=== PATIENT | female | born 1990 | race Caucasian/White ===

== ENCOUNTER 2019-09-13 11:58 | Emergency (ER) | payer BC, SELFPAY ==
[2019-09-13 11:59] VITALS: BP 115/76; PULSE 119; RESP 18; TEMP 37.2; O2SAT 95; BMI 32.3
--- NOTE | 2019-09-13 12:19 | ED_ITS ---
HPI - General Adult General: Chief complaint: General Medical Stated complaint: Sick x3 Time Seen by Provider: 09/13/19 12:19 Source: patient Mode of arrival: ambulatory Limitations: no limitations History of Present Illness: HPI narrative: Patient is a 29-year-old female who presents to ED today with complaints of a cough, chest congestion, headache, feeling weak, body aches, chills, fevers of 101; she reports both of her sons have had positive flu tests; she denies abdominal pain, vomiting, diarrhea; she has no urinary symptoms Onset (ago): day(s) (2 days ago) Relieving factors: none Exacerbating factors: none Associated symptoms: Deny chest pain, dyspnea, headache(s), nausea, rash, palpitations, syncope or vomiting Review of Systems Const: Reports: fever (101), chills and body aches; Denies: fatigue Eyes: Denies: change in vision, blurry vision, photophobia, eye discomfort or eye discharge ENMT: Reports: throat pain, painful swallowing, nasal congestion and facial/sinus pain; Denies: enlarged tonsils, swelling of lips/tongue, oral sores/lesions, ear pain, ear discharge, nasal discharge or post nasal drip Card: Denies: chest pain, palpitations, irregular heart rhythm, edema, lightheadedness, syncope or pre-syncope Resp: Reports: productive cough and chest congestion; Denies: shortness of breath, non-productive cough, wheezing, stridor or coughing up blood GI: Denies: abdominal pain, nausea, vomiting or diarrhea : Denies: flank pain, difficulty urinating, painful urination, urinary frequency or urinary urgency Musc: Denies: neck pain or back pain Skin/Breast: Denies: rash Neuro: Denies: headache All/Imm: Denies: facial swelling or seasonal allergies PFSH ED PFSH: Statuses (acute, chronic, etc) shown below reflect problem list status as previously entered and may not be historically accurate Social History (Updated 08/27/19 @ 10:40 by Lucretia Dickson LPN) Smoking and tobacco status: never smoked Alcohol intake: never Female Reproductive History: Date of last menstrual period: 09/12/19 Physical Exam Const: COMMON NORMALS: no apparent distress, average body habitus, oriented x3, alert and well nourished HENMT: COMMON NORMALS: normocephalic, head/scalp atraumatic, hearing grossly normal bilaterally, external ears normal, EAC's normal, TM's normal bilaterally, external nose normal, nasal mucous membranes and turbinates normal, moist oral mucous membranes and oropharynx normal HEAD & SCALP: normocephalic and atraumatic FACE & SINUS: normal facial exam and sinuses nontender NOSE: external nose normal and nasal mucous membranes and turbinates normal EXTERNAL EAR: Yes external ears normal EXTERNAL AUDITORY CANAL: EAC's normal TYMPANIC MEMBRANE: TM's normal bilaterally THROAT: posterior oropharynx normal, tonsils normal and uvula midline Eye: COMMON NORMALS: PERRL, EOMs intact bilaterally and conjunctivae normal CONJUNCTIVA: Yes conjunctivae normal PUPIL: Yes PERRL Neck/C-Spine: COMMON NORMALS: no lymphadenopathy Resp: COMMON NORMALS: normal respiratory effort and clear to auscultation bilaterally AUSCULTATION: clear to auscultation bilaterally Cardio: COMMON NORMALS: regular rate and regular rhythm RATE: regular rate RHYTHM: regular rhythm : COMMON NORMALS: Yes no CVA tenderness BLADDER/KIDNEY EXAM: Yes no CVA tenderness Back/Pelvis: COMMON NORMALS: no CVA tenderness Neuro: COMMON NORMALS: oriented x3 SENSORIUM/ORIENTATION: Yes alert Skin: COMMON NORMALS: no rashes or lesions noted GENERAL SKIN EXAM: no rashes or lesions noted Course Vital Signs: Vital signs: Vital Signs Temperature 98.9 F 09/13/19 11:59 Pulse Rate 119 H 09/13/19 11:59 Respiratory Rate 18 09/13/19 11:59 Blood Pressure 115/76 09/13/19 11:59 Pulse Oximetry 95 09/13/19 11:59 MDM - General Adult Lab Data: Labs: Lab Results 09/13/19 Range/Units 13:05 Influenza Type A A g Positive H (Negative) POC Influenza B Ag Negative (Negative) Imaging Data^: CXR: Radiologist's impression: [address] [place] [address] XRay Report Signed Patient: My Ruiz Unit #: [id number] : [id number] Age/Sex: 29 / F ADM Date: 09/13/19 Loc: ER Room/Bed: Attending Dr: Ordering Provider/Ordering MD: Sophia Mcwilliams Date of Service: 09/13/19 Procedure(s): XR chest 1V portable [id number] Accession Number(s): [id number] Report Number: [id number] WS: [id number] PORTABLE CHEST HISTORY: cough/congestion COMPARISON: None available. Lungs are clear and well expanded. No pleural effusion or pneumothorax. Cardiac size: Normal. Mediastinum/Aorta: Normal mediastinum. No osseous abnormality seen. XR/XR chest 1V portable [id number] IMPRESSION: Unremarkable portable chest. Dictated By: Patrizia Delgado DO Signed By: Patrizia Delgado DO Signed Date/Time: 09/13/191310 DD/ 10 Discharge Plan Discharge Patient Disposition: Home, Self-Care Clinical Impression: Influenza Condition: Stable Prescriptions: New Tamiflu 75 mg capsule 75 mg PO DAILY 5 Days Qty: 5 RF: 0 Tessalon Perles 100 mg capsule 100 mg PO TID PRN (Reason: cough) Qty: 14 RF: 0 Discharge Orders: Discharge Order (Routine); Ordered 09/13/19 Ordered By: Sophia Mcwilliams Referrals: Ibis Cameron DO [Primary Care Provider] - Discharge Diet: Usual diet Discharge Activity: Increase activity as tolerated Coding Level of Care Code ED Senior Account Executive for Chg Fwd Exam Problem Focused
--- NOTE | 2019-09-13 12:34 | XR_ITS ---
WS: [id number] PORTABLE CHEST HISTORY: cough/congestion COMPARISON: None available. Lungs are clear and well expanded. No pleural effusion or pneumothorax. Cardiac size: Normal. Mediastinum/Aorta: Normal mediastinum. No osseous abnormality seen. XR/XR chest 1V portable [id number] IMPRESSION: Unremarkable portable chest.
--- NOTE | 2019-09-13 13:42 | PC.NURSE ---
Pt states shes been sick with flu like symptoms for the past 2 days. Sore throat, congestion,
[2019-09-13 14:08] LABS: Influenza A by IFA Positive (Negative); Influenza B by IFA Negative (Negative)
[2019-09-13 15:29] VITALS: BP 128/76; PULSE 68; RESP 16; O2SAT 98
== END 2019-09-13 15:30 | disposition home or self-care (01) ==
PROVIDERS: Family Medicine; Emergency Provider Physician Assistant; Family Provider Family Medicine; PCP Family Medicine
DX: J11.1 Influenza due to unidentified influenza virus with other respiratory manifestations (principal)
CPT/HCPCS: 71045; 87804; 99281

== ENCOUNTER → 2020-05-27 15:46 | Outpatient (BNVA) | payer BC, SELFPAY | PROVIDERS: Family Provider Family Medicine; PCP Family Medicine; Visit Provider Family Medicine | DX: D22.5 Melanocytic nevi of trunk (principal) | CPT/HCPCS: 88304 ==

== ENCOUNTER → 2020-06-14 10:54 | Outpatient (BNVA) | payer MEDICAID, SELFPAY | PROVIDERS: Family Provider Family Medicine; PCP Family Medicine; Visit Provider Nurse Practitioner Women's Health | DX: N91.2 Amenorrhea, unspecified (principal); R10.2 Pelvic and perineal pain; Z30.431 Encounter for routine checking of intrauterine contraceptive device | CPT/HCPCS: 84702; 87491; 87591; 87661 ==

== ENCOUNTER → 2020-06-27 08:38 | Outpatient (BNVA) | payer MEDICAID, SELFPAY | PROVIDERS: Family Provider Family Medicine; PCP Family Medicine; Visit Provider Nurse Practitioner Women's Health | DX: N83.202 Unspecified ovarian cyst, left side (principal); R10.2 Pelvic and perineal pain | CPT/HCPCS: 76830 ==

== ENCOUNTER → 2020-08-08 10:24 | Outpatient (BNVA) | payer MEDICAID, SELFPAY | PROVIDERS: Family Provider Family Medicine; PCP Family Medicine; Visit Provider Family Medicine | DX: Z11.59 Encounter for screening for other viral diseases (principal); J32.9 Chronic sinusitis, unspecified; B96.89 Other specified bacterial agents as the cause of diseases classified elsewhere; R68.89 Other general symptoms and signs | CPT/HCPCS: 87635 ==

== ENCOUNTER 2020-11-15 18:38 | Emergency (ER) | payer SELFPAY ==
[2020-11-15 19:00] VITALS: BP 137/90; PULSE 87; RESP 18; TEMP 36.9; O2SAT 98; BMI 35.9
--- NOTE | 2020-11-15 19:33 | CTR_ITS ---
PROCEDURE INFORMATION: Exam: CT Abdomen And Pelvis With Contrast Exam date and time: 11/15/2020 8:43 PM Age: 30 years old Clinical indication: Abdominal pain; Localized; Prior surgery; Surgery type: Csection. Gb. ; Patient HX: Lower abd pain with rectal bleeding. ; Additional info: Abd pain rectal bleeding TECHNIQUE: Imaging protocol: Computed tomography of the abdomen and pelvis with contrast. Radiation optimization: All CT scans at this facility use at least one of these dose optimization techniques: automated exposure control; mA and/or kV adjustment per patient size (includes targeted exams where dose is matched to clinical indication); or iterative reconstruction. Contrast material: OMNI 300; Contrast volume: 95 ml; Contrast route: INTRAVENOUS (IV); COMPARISON: No relevant prior studies available. RADIATION DOSE METRICS: Total DLP (mGy-cm): 1659.31 FINDINGS: Liver: Normal. No mass. Gallbladder and bile ducts: Cholecystectomy. No dilation of biliary system. Pancreas: Normal. No ductal dilation. Spleen: Normal. No splenomegaly. Adrenal glands: Normal. No mass. Kidneys and ureters: Normal. No hydronephrosis. Stomach and bowel: Unremarkable. No obstruction. No mucosal thickening. Appendix: No evidence of appendicitis. Intraperitoneal space: Unremarkable. No free air. No significant fluid collection. Vasculature: Unremarkable. No abdominal aortic aneurysm. Lymph nodes: Unremarkable. No enlarged lymph nodes. Urinary bladder: Unremarkable as visualized. Reproductive: Unremarkable as visualized. Bones/joints: Unremarkable. No acute fracture. Soft tissues: Unremarkable. CT/CT abdomen pelvis w con* [id number] IMPRESSION: Negative for acute pathology in the abdomen or pelvis. Radiation Dose CTDIVOL = (mGy): DLP = 1659.31 (mGy-cm)
--- NOTE | 2020-11-15 19:33 | W.ED.GIBLEED ---
HPI - GI Bleed General: Chief complaint: GI Bleed Stated complaint: BLEEDING/CRAMPING History of Present Illness: HPI Narrative: 30-year-old female presents with 1 week of abdominal cramping, right side greater than left in her lower abdomen. She has been having rectal bleeding, both with stools, and free of stool. She has been passing some clots. No dark tarry stools. She has been nauseated but no vomiting. No fever. She is not had this problem before. No sick contacts that she knows of MD complaint: blood streaked stool and gross hematochezia Onset (ago): week(s) (1) Pain Consistency: intermittent Severity: moderate Relieving factors: none Exacerbating factors: eating Associated symptoms: Reports abdominal pain, nausea and poor appetite; Denies chills, easy bruising, epistaxis, fever(s), headache(s), other bleeding, syncope or vomiting Review of Systems Const: Denies: fever(s) or chills ENMT: Denies: epistaxis Card: Denies: chest pain, palpitations or syncope Resp: Denies: dyspnea, productive cough or wheezing GI: Reports: abdominal pain and nausea; Denies: vomiting : Denies: hematuria or vaginal bleeding Neuro: Denies: headache(s) or confusion [place]/Lymph: Denies: easy bruising PFSH ED PFSH: Medical History Depression No pertinent past medical history neghx: htn,dm,thyroid,dvt/pe Surgical History Hx of section 09/20/2014: Performed in [facility]. Operative report---> primary low transverse delivery with double layer closure and no extensions. Hx of cholecystectomy Hx of laparoscopy Done on 09/10/[address] Cook at [facility] [place] for pelvic pain--laparoscopy with lysis of adheions and Nexplanon removal. At time of surgery a single area of omental adhesions onto the bladder was noted which was taken down. No sign of endometriosis.. Hx of tonsillectomy Family History (Updated 08/27/20 @ 09:02 by Ibis Jensen RN) Father Hypertension Family/Other Ovarian cancer maternal great grandmother, maternal grandmother and paternal grandmother. She states that all of these women have had hysterectomies however she is not sure about the diagnosis of ovarian cancer... Diabetes Paternal Aunt Thyroid disease Paternal aunt Mother Hypertension Cervical cancer dx --unknown age Grandmother Stroke Paternal Colon cancer Paternal Ovarian cancer Grandfather Stroke Paternal Denies family history of Clotting disorder Heart disease Hyperlipidemia Breast cancer Bleeding disorder Uterine cancer Social History Current gender identity: Female Additional social history: - Tobacco use: Never Alcohol use: Never Drug use: Marijuana--- smoked 06/13/2020-- has medical card Female Reproductive History: Date of last menstrual period: 09/12/19 Physical Exam Const: GENERAL APPEARANCE: well developed ORIENTATION/CONSCIOUSNESS: Yes oriented to person, Yes oriented to place and Yes oriented to time HENMT: COMMON NORMALS: normocephalic, external ears normal and Normal external nose present HEAD & SCALP: normocephalic FACE & SINUS: normal facial exam NOSE: Normal external nose present and No nasal discharge present EXTERNAL EAR: Yes external ears normal Eye: COMMON NORMALS: Equal, round and reactive pupils present, EOMs intact bilaterally and conjunctivae normal EYELID: eyelids normal CONJUNCTIVA: Yes conjunctivae normal PUPIL: Yes Equal, round and reactive pupils present Neck/C-Spine: GENERAL: No tracheal deviation Chest: COMMONS NORMALS: normal inspection of the chest CHEST: No tenderness Resp: COMMON NORMALS: clear to auscultation bilaterally EFFORT & INSPECTION: No tachypneic, No respiratory distress, No retractions, No uses accessory muscles and No tracheal deviation AUSCULTATION: clear to auscultation bilaterally, no rhonchi, no wheezes and lung sounds not diminished Cardio: COMMON NORMALS: regular rate and regular rhythm RATE: regular rate RHYTHM: regular rhythm HEART SOUNDS: no murmurs PERIPHERAL PULSES: radial pulses present GI: INSPECTION: No abdominal distension AUSCULTATION: No Hyperactive bowel sounds present and No Hypoactive bowel sounds present PALPATION: Yes Tenderness to palpation present (GI) Details: LLQ and RLQ, No Guarding due to palpation present (GI), No Rigid due to palpation and Yes Rebound tenderness present PERCUSSION: no dullness to percussion and no tympanic to percussion Neuro: SENSORIUM/ORIENTATION: Yes oriented to person, Yes oriented to place and Yes oriented to time Psych: COMMON NORMALS: mental status grossly normal Skin: COMMON NORMALS: no rashes or lesions noted GENERAL SKIN EXAM: no rashes or lesions noted Course Vital Signs: Vital signs: Vital Signs Temperature 98.4 F 11/15/20 19:00 Pulse Rate 88 11/15/20 19:43 Respiratory Rate 18 11/15/20 19:43 Blood Pressure 144/97 11/15/20 19:43 Pulse Oximetry 98 11/15/20 19:43 MDM - GI Bleed MDM Narrative: Medical decision making narrative: 30-year-old female with diffuse belly cramping on the right and left, with blood in her stool she states she has not had blood in her stool for the past 24 hours or so. She is does still have the pain her hemoglobin is 13.7. White blood cell count is mildly high at 13.6. Her electrolytes are normal. CT is negative for any colitis, or other acute problem. She has been given some dexamethasone here. We will treat her with Flagyl for 5 days in case there is a subclinical colitis. Close outpatient follow-up. Lab Data: Labs: Lab Results 11/15/20 11/15/20 11/15/20 Range/Units 19:25 19:25 19:25 WBC 13.6 H (4.0-10.0) 10^3/ uL RBC 4.93 (4.1-5.3) 10^6/u L Hgb 13.7 (11.5-15.3) g/dL Hct 42.1 (37.0-47.0) % MCV 85.4 (81-99) fL MCH 27.8 L (28.0-34.0) pg MCHC 32.5 (30.0-36.0) g/dL RDW 12.0 L (12.1-15.1) % Plt Count 546 H (130-400) 10^3/c mm MPV 9.0 (7.4-10.4) fL Neut % (Auto) 53.7 % Lymph % (Auto) 38.8 % [place] % (Auto) 5.4 % Eos % (Auto) 1.2 % Baso % (Auto) 0.5 % Neut # (Auto) 7.29 (1.8-7.7) 10^3/u L Lymph # (Auto) 5.3 H (0.8-4.8) 10^3/u L [place] # (Auto) 0.7 (0.2-0.9) 10^3/u L Eos # (Auto) 0.2 (0.0-0.8) 10^3/u L Baso # (Auto) 0.1 (0.0-0.1) 10^3/u L Nucleated RBC % (a uto) 0 % Nucleated RBCs # 0.0 /100WBC PT 13.90 (12.1-14.9) SECO NDS INR 1.04 (0.8-1.2) APTT 31.5 (23.9-36.7) SECO NDS Sodium 136 (136-145) mmol/L Potassium 3.7 (3.5-5.1) mmol/L Chloride 103 (98-107) mmol/L Carbon Dioxide 22 (22-29) mmol/L Anion Gap 14.7 (5-19) BUN 7 (6-20) mg/dL Creatinine 0.4 L (0.5-0.9) mg/dL GFR Calculation 190.1 H (90-130) mL/min Glucose 86 (65-115) mg/dL Calculated Osmolal ity 279 L (285-295) mOsm/k g Calcium 9.3 (8.5-10.5) mg/dL Total Bilirubin 0.2 (0.15-1.2) mg/dL AST 20 (0-32) U/L ALT 27 (0-33) U/L Alkaline Phosphata se 68 (35-105) IU/L C-Reactive Protein 0.4 (0.0-4.9) mg/L Total Protein 7.7 (6.6-8.7) g/dL Albumin 4.4 (3.5-5.2) g/dL Globulin 3.3 (1.3-4.6) g/dL Lipase 22 (13-60) U/L HCG, Qual (Negative) Urine Color (Yellow) Urine Appearance (CLEAR) Urine pH (5-7) Ur Specific Gravit y (1.005-1.030) Urine Protein (Negative) Urine Glucose (UA) (Normal) Urine Ketones (Negative) Urine Blood (Negative) Urine Nitrate (Negative) Urine Bilirubin (Negative) Urine Urobilinogen (Negative) mg/dL Ur Leukocyte Nae ase (Negative) Urine RBC (0-2) /hpf Urine WBC (0-5) /hpf Ur Squamous Epith Cells (0-5) /hpf Amorphous Sediment Urine Bacteria (NONE) /hpf 11/15/20 11/15/20 Range/Units 19:25 19:37 WBC (4.0-10.0) 10^3/ uL RBC (4.1-5.3) 10^6/u L Hgb (11.5-15.3) g/dL Hct (37.0-47.0) % MCV (81-99) fL MCH (28.0-34.0) pg MCHC (30.0-36.0) g/dL RDW (12.1-15.1) % Plt Count (130-400) 10^3/c mm MPV (7.4-10.4) fL Neut % (Auto) % Lymph % (Auto) % [place] % (Auto) % Eos % (Auto) % Baso % (Auto) % Neut # (Auto) (1.8-7.7) 10^3/u L Lymph # (Auto) (0.8-4.8) 10^3/u L [place] # (Auto) (0.2-0.9) 10^3/u L Eos # (Auto) (0.0-0.8) 10^3/u L Baso # (Auto) (0.0-0.1) 10^3/u L Nucleated RBC % (a uto) % Nucleated RBCs # /100WBC PT (12.1-14.9) SECO NDS INR (0.8-1.2) APTT (23.9-36.7) SECO NDS Sodium (136-145) mmol/L Potassium (3.5-5.1) mmol/L Chloride (98-107) mmol/L Carbon Dioxide (22-29) mmol/L Anion Gap (5-19) BUN (6-20) mg/dL Creatinine (0.5-0.9) mg/dL GFR Calculation (90-130) mL/min Glucose (65-115) mg/dL Calculated Osmolal ity (285-295) mOsm/k g Calcium (8.5-10.5) mg/dL Total Bilirubin (0.15-1.2) mg/dL AST (0-32) U/L ALT (0-33) U/L Alkaline Phosphata se (35-105) IU/L C-Reactive Protein (0.0-4.9) mg/L Total Protein (6.6-8.7) g/dL Albumin (3.5-5.2) g/dL Globulin (1.3-4.6) g/dL Lipase (13-60) U/L HCG, Qual Negative (Negative) Urine Color Yellow (Yellow) Urine Appearance Clear (CLEAR) Urine pH 5 (5-7) Ur Specific Gravit y 1.015 (1.005-1.030) Urine Protein Neg (Negative) Urine Glucose (UA) Norm (Normal) Urine Ketones Negative (Negative) Urine Blood 2+ H (Negative) Urine Nitrate Negative (Negative) Urine Bilirubin Neg (Negative) Urine Urobilinogen Norm (Negative) mg/dL Ur Leukocyte Nae ase Negative (Negative) Urine RBC 0-4 H (0-2) /hpf Urine WBC 0-4 H (0-5) /hpf Ur Squamous Epith Cells 0-4 H (0-5) /hpf Amorphous Sediment Not Reportable Urine Bacteria Trace (NONE) /hpf Discharge Plan Discharge Patient Disposition: Home Clinical Impression: Lower gastrointestinal hemorrhage Condition: Stable Prescriptions: New Flagyl 500 mg tablet 500 mg PO BID 7 Days Qty: 14 RF: 0 No Action medroxyprogesterone [Depo-Provera] 150 mg/mL syringe 150 mg IM .every 3 months Qty: 1 RF: 3 Tylenol 325 mg Tablet 325 - 650 mg PO QID PRN (Reason: Pain) RF: 0 Excedrin Tension Headache 500-65 mg Tablet 1 tab PO Q6H PRN (Reason: Migraine Headache) RF: 0 Nasacort 55 mcg Aerosol,Childs 2 spray INTRANASAL DAILY RF: 0 ibuprofen 200 mg Tablet 200 - 400 mg PO Q6H PRN (Reason: Pain) RF: 0 Claritin 10 mg Tablet 10 mg PO DAILY RF: 0 Tums 300 mg (750 mg) Tablet,Chewable 300 mg PO QID PRN (Reason: stomach issues) RF: 0 Discharge Orders: Discharge ED (Routine); Ordered 11/15/20 Ordered By: Eyad Meadows Referrals: Ibis Cameron DO [Primary Care Provider] - 4-7 days Discharge Diet: Advance as tolerated Discharge Activity: Increase activity as tolerated Patient Instructions: Gastrointestinal Bleeding (ED) Activity Restrictions/Additional Instructions: Return for worsening bleeding despite treatment, development of fever greater than 100, vomiting liquids or medications, worsening pain, other concerning symptoms. Coding Level of Care Code ED Clinical Operations Consultant for Chg Fwd Exam Comprehensive
[2020-11-15 19:34] LABS: Basophils # 0.1 10^3/uL (0.0-0.1); Basophils % 0.5 %; Eosinophils # 0.2 10^3/uL (0.0-0.8); Eosinophils % 1.2 %; Hematocrit 42.1 % (37.0-47.0); Hemoglobin 13.7 g/dL (11.5-15.3); Lymphocytes # 5.3 10^3/uL (0.8-4.8); Lymphocytes % 38.8 %; Mean Corpuscular HGB Conc 32.5 g/dL (30.0-36.0); Mean Corpuscular Hemoglobin 27.8 pg (28.0-34.0); Mean Corpuscular Volume 85.4 fL (81-99); Monocytes # 0.7 10^3/uL (0.2-0.9); Monocytes % 5.4 %; Neutrophils # 7.29 10^3/uL (1.8-7.7); Neutrophils % 53.7 %; Nucleated Red Blood Cells % 0 %; Platelet Count 546 10^3/cmm (130-400); Red Blood Count 4.93 10^6/uL (4.1-5.3); White Blood Count 13.6 10^3/uL (4.0-10.0)
[2020-11-15 19:43] VITALS: BP 144/97; PULSE 88; RESP 18; O2SAT 98
[2020-11-15 19:45] LABS: HCG, Serum Qual Negative (Negative)
[2020-11-15 20:00] LABS: Alanine Aminotransferase 27 U/L (0-33); Albumin Level 4.4 g/dL (3.5-5.2); Alkaline Phosphatase 68 IU/L (35-105); Aspartate Amino Transferase 20 U/L (0-32); Blood Urea Nitrogen 7 mg/dL (6-20); C Reactive Protein 0.4 mg/L (0.0-4.9); Calcium 9.3 mg/dL (8.5-10.5); Carbon Dioxide 22 mmol/L (22-29); Chloride 103 mmol/L (98-107); Globulin 3.3 g/dL (1.3-4.6); Glomerular Filtration Rate 190.1 mL/min (90-130); Glucose 86 mg/dL (65-115); Lipase 22 U/L (13-60); Osmolality Calculated 279 mOsm/kg (285-295); Sodium 136 mmol/L (136-145); Total Bilirubin 0.2 mg/dL (0.15-1.2); Total Protein 7.7 g/dL (6.6-8.7)
[2020-11-15 20:01] LABS: Anion Gap 14.7 (5-19); Potassium 3.7 mmol/L (3.5-5.1)
[2020-11-15 20:05] LABS: INR 1.04 (0.8-1.2); Partial Thromboplastin Time 31.5 SECONDS (23.9-36.7)
[2020-11-15] MEDS: dexamethasone 4 mg/mL INJ 5 MG IVP ×2 (20:18→21:13)
[2020-11-15 20:23] LABS: Add Urine Microscopic? YES; Bilirubin Urine Neg (Negative); Blood Urine 2+ (Negative); Glucose Urine UA Norm (Normal); Ketones Urine Negative (Negative); Leukocyte Esterase Urine Negative (Negative); Nitrate Urine Negative (Negative); Protein Urine Neg (Negative); Specific Gravity, Urine 1.015 (1.005-1.030); Urine Appearance Clear (CLEAR); Urine Color Yellow (Yellow); Urobilinogen Urine Norm (Negative); pH Urine 5 (5-7)
[2020-11-15 20:24] LABS: Bacteria Urine TRACE /hpf; RBC Urine 0-4 /hpf (0-2); Squamous Epithelial Cell Urine 0-4 /hpf (0-5); WBC Urine 0-4 /hpf (0-5)
[2020-11-15] MEDS: iohexol 300 mg/mL 100 mL Btl IV (20:44)
== END 2020-11-15 21:47 | disposition home or self-care (01) ==
PROVIDERS: Emergency Provider Emergency Medicine; PCP Family Medicine
DX: K92.2 Gastrointestinal hemorrhage, unspecified (principal)
CPT/HCPCS: 74177; 80053; 81001; 83690; 84703; 85025; 85610; 85730; 86140; 96374; 96375; 99283; J1100; Q9967

== ENCOUNTER → 2021-02-28 16:56 | Outpatient (BNVA) | payer MEDICAID, SELFPAY | PROVIDERS: PCP Family Medicine; Visit Provider Emergency Medicine | DX: R50.9 Fever, unspecified (principal); Z20.822 Contact with and (suspected) exposure to COVID-19; R11.0 Nausea | CPT/HCPCS: 87635 ==

== ENCOUNTER → 2021-04-30 16:07 | Outpatient (BNVA) | payer MEDICAID, SELFPAY | PROVIDERS: PCP Family Medicine; Visit Provider Emergency Medicine | DX: J02.9 Acute pharyngitis, unspecified (principal); R11.0 Nausea; K52.9 Noninfective gastroenteritis and colitis, unspecified; Z20.822 Contact with and (suspected) exposure to COVID-19 | CPT/HCPCS: 87071; 87635; 87880 ==

== ENCOUNTER 2021-05-27 10:25 | Emergency (ER) | payer MEDICAID, SELFPAY ==
[2021-05-27 10:45] VITALS: BP 139/91; PULSE 69; RESP 18; TEMP 36.2; O2SAT 98; BMI 34.3
--- NOTE | 2021-05-27 11:15 | CT_ITS ---
WS: [id number] CT ABDOMEN AND PELVIS WITH CONTRAST HISTORY: Right-sided abdominal pain with nausea and vomiting. TECHNIQUE: Imaging performed of the abdomen and pelvis with IV contrast. Single phase imaging of the abdomen. Coronal and sagittal reformats are submitted. All CT scans at [facility] use at [facility] [facility] one of these dose optimization techniques: automated exposure control; mA and/or kV adjustment per patient size (includes targeted exams where dose is matched to clinical indication); or iterative re construction. IV CONTRAST: Omnipaque 300; 95 mL IV. Oral contrast: No DLP: 1605.86 mGy.cm COMPARISON: 11/15/2020 Lower thorax: Lung bases are clear. Heart is normal size. Small hiatal hernia. Liver/biliary system: Liver is normal size. There is very mild central bile duct dilatation which may be physiologic and related to the prior cholecystectomy. Common bile duct is normal at 6 mm. No obst ructing calcification or nodules are identified. No mass at the pancreatic head. Gallbladder: Status post cholecystectomy. Pancreas: Normal size pancreas and pancreatic duct. No adjacent inflammation. Spleen: Normal size spleen. No mass or infarct. Adrenal glands: Normal. Right kidney: Normal. Left kidney: Normal. Aorta: Normal. Lymphadenopathy: There are a few scattered mesenteric lymph nodes. These are small lymph nodes are no t pathologic. Free fluid: None. GI tract: Mild fluid distention small bowel in the RIGHT abdomen measuring up to 2.6 cm. Not an obstr uctive pattern. There is no change in caliber. Appendix is normal. No colonic wall inflammation. Abdominal wall: Fat-containing umbilical hernia. Pelvis: No free fluid or adenopathy within the pelvis. Normal size anteverted uterus. LEFT ovarian fo llicle measures 1.9 cm. Bones: Unremarkable. CT/CT abdomen pelvis w con* [id number] IMPRESSION: 1. Mild fluid distended small bowel with no obstructive pattern. Likely gastro enteritis. 2. Normal appendix. 3. Prior cholecystectomy. 4. No renal stone or calcification.
--- NOTE | 2021-05-27 11:24 | ED_ITS ---
HPI - Abdominal Pain General: Chief Complaint: Abdominal Pain Stated Complaint: V/BLOOD ABD PAINS Time Seen by Provider: 05/27/21 11:15 History of Present Illness: HPI narrative: 31-year-old female presents emergency room with complaint of abdominal pain and right-sided nausea vomiting pain began around 7 AM this morning she denies any dysuria urgency or frequency no history of nephrolithiasis. She is denies any hematochezia or melena. She had multiple abdominal surgeries including cholecystectomy cystectomy previous and a lysis of adhesions done laparoscopically. No fever no cough or shortness of breath MD elicited complaint: abdominal pain Onset (ago): hour(s) Pain Consistency: constant Location: RLQ Severity: moderate Quality: cramping, stabbing and aching Radiation: none Exacerbating factors: nothing Relieving factors: nothing Associated Symptoms: Reports anorexia, bloating, GI cramping, dyspepsia, nausea, poor appetite and vomiting; Denies belching, change in bowel habits, change in stool character, chills, coffee ground emesis, constipation, diarrhea, dysuria, excessive flatus, fever(s), heartburn, hematochezia, hematuria, hematemesis, fecal incontinence, loose stools, melena and syncope Related Data: Date of Last Menstrual Period: 09/12/19 Review of Systems Const: Denies: fever(s) or chills ENMT: Denies: throat pain, ear or mastoid pain, nasal discharge or nasal congestion Card: Denies: syncope Resp: Denies: dyspnea, productive cough or non-productive cough GI: Reports: nausea, vomiting, bloating and GI cramping; Denies: hematemesis, coffee ground emesis, heartburn, diarrhea, constipation, belching, excessive flatus, fecal incontinence, change in bowel habits, change in stool character, hematochezia or melena : Denies: dysuria or hematuria Skin/Breast: Denies: rash or pruritus PFSH ED PFSH: Medical History Anxiety Depression No pertinent past medical history neghx: htn,dm,thyroid,dvt/pe Problems related to lack of adequate sleep Problems related to lack of adequate sleep Surgical History Hx of section 09/20/2014: Performed in [facility]. Operative report---> primary low transverse delivery with double layer closure and no extensions. Hx of cholecystectomy Hx of laparoscopy Done on 09/10/[address] [place] [facility] [place]--laparoscopy with lysis of adheions and Nexplanon removal. At time of surgery a single area of omental adhesions onto the bladder was noted which was taken down. No sign of endometriosis.. Hx of tonsillectomy Family History Father Hypertension Family/Other Ovarian cancer maternal great grandmother, maternal grandmother and paternal grandmother. She states that all of these women have had hysterectomies however she is not sure about the diagnosis of ovarian cancer... Diabetes Paternal Aunt Thyroid disease Paternal aunt Mother Hypertension Cervical cancer dx --unknown age Grandmother Stroke Paternal Colon cancer Paternal Ovarian cancer Grandfather Stroke Paternal Denies family history of Clotting disorder Heart disease Hyperlipidemia Breast cancer Bleeding disorder Uterine cancer Social History Smoking and tobacco status: never smoked Current gender identity: Female Additional social history: - Tobacco use: Never Alcohol use: Never Drug use: Marijuana--- smoked 06/13/2020-- has medical card Female Reproductive History: Date of last menstrual period: 09/12/19 Spontaneous abortions: No Physical Exam Const: COMMON NORMALS: no acute distress GENERAL APPEARANCE: cooperative and comfortable ORIENTATION/CONSCIOUSNESS: Yes awake, Yes oriented to person, Yes oriented to place and Yes oriented to time HENMT: COMMON NORMALS: normocephalic, atraumatic and hearing grossly normal bilaterally HEAD & SCALP: normocephalic and atraumatic Neck/C-Spine: COMMON NORMALS: no JVD Resp: COMMON NORMALS: normal respiratory effort, No retractions, No use of accessory muscles and clear to auscultation bilaterally AUSCULTATION: clear to auscultation bilaterally Cardio: COMMON NORMALS: no JVD, regular rate, regular rhythm and No murmurs present (Cardio) RATE: regular rate RHYTHM: regular rhythm GI: COMMON NORMALS: No hepatosplenomegaly present AUSCULTATION: Yes normoactive bowel sounds PALPATION: Yes Tenderness to palpation present (GI) Details: RLQ, No Guarding due to palpation present (GI) and Yes No hepatosplenomegaly present Extremity: COMMON NORMALS: normal to inspection, capillary refill normal, no clubbing, cyanosis or edema, no calf tenderness and no pedal edema Neuro: SENSORIUM/ORIENTATION: Yes oriented to person, Yes oriented to place and Yes oriented to time Skin: COMMON NORMALS: no rashes or lesions noted GENERAL SKIN EXAM: no rashes or lesions noted Course Vital Signs: Vital signs: Vital Signs Temperature 97.1 F L 05/27/21 10:45 Pulse Rate 69 05/27/21 10:45 Respiratory Rate 18 05/27/21 10:45 Blood Pressure 139/91 05/27/21 10:45 Pulse Oximetry 98 05/27/21 10:45 MDM - Abdominal Pain MDM Narrative: Medical decision making narrative: Labs and imaging reviewed as on the chart. CT reviewed with the patient. Nothing acute requiring discharge home clinical diet antiemetics as needed if worsening or change return Lab Data: Labs: Lab Results 05/27/21 05/27/21 05/27/21 11:52 11:52 11:52 WBC 10.6 10^3/uL H 10 ^3/uL (4.0-10.0) RBC 4.94 10^6/uL 10^6 /uL (4.1-5.3) Hgb 13.3 g/dL g/dL (11.5-15.3) Hct 42.2 % % (37.0-47.0) MCV 85.4 fl fl (81-99) MCH 26.9 pg L pg (28.0-34.0) MCHC 31.5 g/dL g/dL (30.0-36.0) RDW 12.6 % % (12.1-15.1) Plt Count 508 10^3/cmm H 10 ^3/cmm (130-400) MPV 9.6 fL fL (7.4-10.4) Neut % (Auto) 51.0 % % Lymph % (Auto) 39.7 % % Harper % (Auto) 6.0 % % Eos % (Auto) 1.3 % % Baso % (Auto) 0.8 % % Neut # (Auto) 5.39 10^3/uL 10^3 /uL (1.8-7.7) Lymph # (Auto) 4.2 10^3/uL 10^3/ uL (0.8-4.8) Harper # (Auto) 0.6 10^3/uL 10^3/ uL (0.2-0.9) Eos # (Auto) 0.1 10^3/uL 10^3/ uL (0.0-0.8) Baso # (Auto) 0.1 10^3/uL 10^3/ uL (0.0-0.1) Nucleated RBC % (a uto) 0 % % Nucleated RBCs # 0.0 /100WBC /100W BC Sodium 138 mmol/L mmol/L (136-145) Potassium 3.2 mmol/L L mmol /L (3.5-5.1) Chloride 100 mmol/L mmol/L (98-107) Carbon Dioxide 25 mmol/L mmol/L (22-29) Anion Gap 16.2 (5-19) BUN 5 mg/dL L mg/dL (6-20) Creatinine 0.4 mg/dL L mg/dL (0.5-0.9) GFR Calculation 188.7 mL/min H mL /min (90-130) Glucose 81 mg/dL mg/dL (65-115) Calculated Osmolal ity 282 mOsm/kg L mOs m/kg (285-295) Lactic Acid 0.6 mmol/L mmol/L (0.5-2.2) Calcium 9.3 mg/dL mg/dL (8.5-10.5) Magnesium 1.8 mg/dL mg/dL (1.7-2.3) Total Bilirubin 0.3 mg/dL mg/dL (0.15-1.2) AST 42 U/L H U/L (0-32) ALT 62 U/L H U/L (0-33) Alkaline Phosphata se 79 IU/L IU/L (35-105) Creatine Kinase 143 U/L U/L (26-192) Total Protein 7.4 g/dL g/dL (6.6-8.7) Albumin 4.3 g/dL g/dL (3.5-5.2) Globulin 3.1 g/dL g/dL (1.3-4.6) Lipase 11 U/L L U/L (13-60) HCG, Qual Urine Color Urine Appearance Urine pH Ur Specific Gravit y Urine Protein Urine Glucose (UA) Urine Ketones Urine Blood Urine Nitrate Urine Bilirubin Urine Urobilinogen Ur Leukocyte Nae ase 05/27/21 05/27/21 11:52 13:45 WBC RBC Hgb Hct MCV MCH MCHC RDW Plt Count MPV Neut % (Auto) Lymph % (Auto) Harper % (Auto) Eos % (Auto) Baso % (Auto) Neut # (Auto) Lymph # (Auto) Harper # (Auto) Eos # (Auto) Baso # (Auto) Nucleated RBC % (a uto) Nucleated RBCs # Sodium Potassium Chloride Carbon Dioxide Anion Gap BUN Creatinine GFR Calculation Glucose Calculated Osmolal ity Lactic Acid Calcium Magnesium Total Bilirubin AST ALT Alkaline Phosphata se Creatine Kinase Total Protein Albumin Globulin Lipase HCG, Qual Negative (Negative) Urine Color Yellow (Yellow) Urine Appearance Clear (CLEAR) Urine pH 5 (5-7) Ur Specific Gravit y 1.005 (1.005-1.030) Urine Protein Neg (Negative) Urine Glucose (UA) Norm (Normal) Urine Ketones Negative (Negative) Urine Blood Neg (Negative) Urine Nitrate Negative (Negative) Urine Bilirubin Neg (Negative) Urine Urobilinogen Norm mg/dL mg/dL (Negative) Ur Leukocyte Nae ase Negative (Negative) Discharge Plan Discharge Patient Disposition: Home Clinical Impression: Gastroenteritis Condition: Stable Prescriptions: New promethazine 25 mg tablet 25 mg PO Q6H PRN (Reason: nausea and vomiting) Qty: 20 RF: 0 No Action medroxyprogesterone [Depo-Provera] 150 mg/mL syringe 150 mg IM .every 3 months Qty: 1 RF: 3 bupropion HCl 150 mg tablet extended release 24 hr 150 mg PO QAM 30 Days Qty: 30 RF: 3 trazodone 50 mg tablet 50 mg PO .qhs 30 Days Qty: 30 RF: 3 ondansetron 4 mg tablet,disintegrating 4 mg PO Q6H PRN (Reason: nausea and vomiting) Qty: 20 RF: 1 ondansetron 4 mg tablet,disintegrating 4 mg PO Q6H PRN (Reason: nausea and vomiting) Qty: 12 RF: 0 Tylenol 325 mg Tablet 325 - 650 mg PO QID PRN (Reason: Pain) RF: 0 Nasacort 55 mcg Aerosol,[place] 2 spray INTRANASAL DAILY RF: 0 Claritin 10 mg Tablet 10 mg PO DAILY RF: 0 Discharge Orders: Discharge ED (Routine); Ordered 10/05/21 Ordered By: Nate Pickering Referrals: Ibis Cameron DO [Primary Care Provider] - Discharge Diet: Clear Liquid Discharge Activity: Increase activity as tolerated Patient Instructions: Opioid Safety Coding Level of Care Code ED Financial Recording Clerk for Chg Fwd Exam Comprehensive
[2021-05-27] MEDS: morphine 4 mg/mL SDV 1 mL IVP (11:58)
[2021-05-27] MEDS: ondansetron 2 mg/ML SDV 2 mL 4 MG IVP (11:58)
[2021-05-27] MEDS: sodium chloride 0.9% 1,000 ML 999 ML IV (11:58)
[2021-05-27 12:23] LABS: Lactic Sepsis W/Reflex 0.6 mmol/L (0.5-2.2)
[2021-05-27 12:40] LABS: Alanine Aminotransferase 62 U/L (0-33); Albumin Level 4.3 g/dL (3.5-5.2); Alkaline Phosphatase 79 IU/L (35-105); Anion Gap 16.2 (5-19); Aspartate Amino Transferase 42 U/L (0-32); Blood Urea Nitrogen 5 mg/dL (6-20); Calcium 9.3 mg/dL (8.5-10.5); Carbon Dioxide 25 mmol/L (22-29); Chloride 100 mmol/L (98-107); Creatine Phosphokinase 143 U/L (26-192); Globulin 3.1 g/dL (1.3-4.6); Glomerular Filtration Rate 188.7 mL/min (90-130); Glucose 81 mg/dL (65-115); Lipase 11 U/L (13-60); Magnesium 1.8 mg/dL (1.7-2.3); Osmolality Calculated 282 mOsm/kg (285-295); Potassium 3.2 mmol/L (3.5-5.1); Sodium 138 mmol/L (136-145); Total Bilirubin 0.3 mg/dL (0.15-1.2); Total Protein 7.4 g/dL (6.6-8.7)
[2021-05-27 12:41] LABS: HCG, Serum Qual Negative (Negative)
[2021-05-27] MEDS: iohexol 300 mg/mL 100 mL Btl IV (12:47)
[2021-05-27 13:13] LABS: Basophils # 0.1 10^3/uL (0.0-0.1); Basophils % 0.8 %; Eosinophils # 0.1 10^3/uL (0.0-0.8); Eosinophils % 1.3 %; Hematocrit 42.2 % (37.0-47.0); Hemoglobin 13.3 g/dL (11.5-15.3); Lymphocytes # 4.2 10^3/uL (0.8-4.8); Lymphocytes % 39.7 %; Mean Corpuscular HGB Conc 31.5 g/dL (30.0-36.0); Mean Corpuscular Hemoglobin 26.9 pg (28.0-34.0); Mean Corpuscular Volume 85.4 fl (81-99); Mean Platelet Volume 9.6 fL (7.4-10.4); Monocytes # 0.6 10^3/uL (0.2-0.9); Neutrophils # 5.39 10^3/uL (1.8-7.7); Nucleated Red Blood Cells % 0 %; Platelet Count 508 10^3/cmm (130-400); Red Blood Count 4.94 10^6/uL (4.1-5.3); Red Cell Distribution Width 12.6 % (12.1-15.1); White Blood Count 10.6 10^3/uL (4.0-10.0)
[2021-05-27 14:16] LABS: Add Urine Microscopic? NO; Charge for UA Resulting for Rev
[2021-05-27 14:24] LABS: Bilirubin Urine Neg (Negative); Blood Urine Neg (Negative); Glucose Urine UA Norm (Normal); Ketones Urine Negative (Negative); Leukocyte Esterase Urine Negative (Negative); Nitrate Urine Negative (Negative); Protein Urine Neg (Negative); Specific Gravity, Urine 1.005 (1.005-1.030); Urine Appearance Clear (CLEAR); Urine Color Yellow (Yellow); Urobilinogen Urine Norm (Negative); pH Urine 5 (5-7)
== END 2021-05-27 14:53 | disposition home or self-care (01) ==
PROVIDERS: Emergency Provider Family Medicine; PCP Family Medicine
DX: K52.9 Noninfective gastroenteritis and colitis, unspecified (principal)
CPT/HCPCS: 74177; 80053; 81003; 82550; 83605; 83690; 83735; 84703; 85025; 96361; 96374; 96375; 99283; J2270; J2405; J7030; Q9967

== ENCOUNTER → 2021-06-03 15:08 | Outpatient (BNVA) | payer MEDICAID, SELFPAY | PROVIDERS: PCP Family Medicine; Visit Provider Nurse Practitioner Women's Health | DX: Z01.419 Encounter for gynecological examination (general) (routine) without abnormal findings (principal); Z72.820 Sleep deprivation; R10.9 Unspecified abdominal pain | CPT/HCPCS: 88175 ==

== ENCOUNTER → 2021-06-11 17:39 | Outpatient (BNVA) | payer MEDICAID, SELFPAY | PROVIDERS: PCP Family Medicine; Visit Provider Emergency Medicine | DX: J02.9 Acute pharyngitis, unspecified (principal) | CPT/HCPCS: 87071; 87880 ==

== ENCOUNTER → 2021-06-26 10:10 | Outpatient (BNVA) | payer MEDICAID, SELFPAY | PROVIDERS: PCP Family Medicine; Visit Provider Obstetrics & Gynecology | DX: R87.613 High grade squamous intraepithelial lesion on cytologic smear of cervix (HGSIL) (principal) | CPT/HCPCS: 81025; 88305 ==

== ENCOUNTER → 2021-08-04 13:43 | Outpatient (BNVA) | payer MEDICAID, SELFPAY | PROVIDERS: PCP Family Medicine; Visit Provider Obstetrics & Gynecology | DX: R87.613 High grade squamous intraepithelial lesion on cytologic smear of cervix (HGSIL) (principal) | CPT/HCPCS: 81025 ==

== ENCOUNTER → 2021-08-28 11:00 | Outpatient (BNVA) | payer BC, MEDICAID, SELFPAY | PROVIDERS: PCP Family Medicine; Visit Provider Obstetrics & Gynecology | DX: R87.613 High grade squamous intraepithelial lesion on cytologic smear of cervix (HGSIL) | CPT/HCPCS: 87635 ==

== ENCOUNTER 2021-09-02 06:18 | Day surgery (SDC) | payer BC, MEDICAID, SELFPAY ==
[2021-09-01 11:07] VITALS: BMI 34.3
[2021-09-02] VITALS (15 sets, daily range): BP systolic 102–128; BP diastolic 62–89; PULSE 59–98; RESP 16–22; TEMP 36.2–36.8; O2SAT 92–100
[2021-09-02] MEDS: ketorolac 30 mg/mL INJ IVP (07:03)
[2021-09-02] MEDS: sodium chloride 0.9% 1,000 ML 30 ML IV (07:03)
--- NOTE | 2021-09-02 07:05 | W.PM.OPSUD ---
Surgery/Procedure H&P Update DATE OF PROCEDURE: September 02, 2021 DATE H&P PERFORMED: 08/28/21 H&P UPDATE INFORMATION: I have reviewed H&P completed within last 30 days, I have examined patient prior to procedure and No changes to prior documentation PREOP DIAGNOSIS: CHEYANNE 2 PLANNED PROCEDURE: Operation Date: 09/02/21 08:10 Proposed Procedures p Loop Electrosurgical Excision [id number] R87.613(Not Applicable) - Shanna Haq MD Related Problem List Diagnoses (1) CHEYANNE II (cervical intraepithelial neoplasia II): (2) HSIL (high grade squamous intraepithelial lesion) on Pap smear of cervix:
--- NOTE | 2021-09-02 08:14 | ANES.PREANE2 ---
Pre-Anesthetic Assessment Pre-Anesthetic Assessment: Height/Weight: Height 1.5 m Weight 77.111 kg Temp Pulse Resp BP Pulse Ox 98.3 F 75 18 119/89 98 09/02/21 06:38 09/02/21 06:38 09/02/21 06:38 09/02/21 06:38 09/02/21 06:38 Preop Diagnosis: CHEYANNE 2 Proposed Procedure: Operation Date: 09/02/21 08:10 Proposed Procedures p Loop Electrosurgical Excision [id number] R87.613(Not Applicable) - Shanna Haq MD Familial anesthetic complications: None Was Beta Erin taken within 24 hours: N/A Was Clonidine taken within 24 hours: N/A Last intake: Intake Last Liquid Date 09/01/21 Last Liquid Time 22:30 Last Solid Date 09/01/21 Last Solid Time 21:00 Social: Comment: Uses marijuana, no tobacco Exam: Pre-Anes Outpt Exam: alert, oriented x 3, clear to auscultation bilaterally and regular rate & rhythm Airway: Submandibular: WNL Cervical ROM: WNL MP: 1 Dentition: Chipped (Upper tooth chipped) History/ROS: No significant complaints Pulmonary: Pulmonary: None reported CV/HEM: CV/HEM: None reported : : None reported Hepatic: Hepatic: None reported GI: GI: GERD Comments: GERD Metabolic: Metabolic: None reported Musc/skel: Musc/skel: None reported Neuropsych: Neuropsych: Anxiety and Depression Anesthetic Plan: ASA status: 2 Anesthesia: Anesthesia Evaluation and General Risk of > 500 ml blood loss (7ml/kg in children): No Meds/Allergies Current Medications: Current Medications Generic Name Dose Route Start Last Admin Trade Name Freq PRN Reason Stop Dose Admin Sodium Chloride 1,000 mls @ 30 ml s/hr 09/02/21 06:45 09/02/21 07:03 Sodium Chloride 0.9% IV 09/03/21 06:44 30 mls/hr .Q24H ROBBI Administration PFSH Anesthesia PFSH: Medical History Anxiety Depression No pertinent past medical history neghx: htn,dm,thyroid,dvt/pe Problems related to lack of adequate sleep Surgical History Hx of section 09/20/2014: Performed in [facility]. Operative report---> primary low transverse delivery with double layer closure and no extensions. Hx of cholecystectomy Hx of laparoscopy Done on 09/10/[address] Cook at [facility] [place] for pelvic pain--laparoscopy with lysis of adheions and Nexplanon removal. At time of surgery a single area of omental adhesions onto the bladder was noted which was taken down. No sign of endometriosis.. Hx of tonsillectomy Family History Father Hypertension Family/Other Ovarian cancer maternal great grandmother, maternal grandmother and paternal grandmother. She states that all of these women have had hysterectomies however she is not sure about the diagnosis of ovarian cancer... Diabetes Paternal Aunt Thyroid disease Paternal aunt Mother Hypertension Cervical cancer dx --unknown age Grandmother Stroke Paternal Colon cancer Paternal--dx age unknown Ovarian cancer Maternal--dx age unknown Grandfather Stroke Paternal Denies family history of Heart disease Hyperlipidemia Breast cancer Uterine cancer Social History Smoking and tobacco status: never smoked Current gender identity: Female Additional social history: - Tobacco use: Never Alcohol use: Never Drug use: Marijuana--- smoked 06/13/2020-- has medical card Female Reproductive History: Date of last menstrual period: 09/12/19 Spontaneous abortions: No Data Anesthesia Cardiac Studies: No Data to Display
[2021-09-02 08:26] LABS: OR HCG Qualitative Urine Negative (Negative)
[2021-09-02] MEDS: piperacillin-tazobactam 3.375 GM in sodium chloride 0.9% (plus) 50 ML IV (08:52)
--- NOTE | 2021-09-02 09:35 | SUR.OPER ---
lugol's 8ml applied to cervix per dr. solano. lot [id number] exp. 10/14
--- NOTE | 2021-09-02 09:48 | PM.OP ---
Operative Report Date of procedure: September 02, 2021 Pre-op Diagnosis: CHEYANNE 2 Post-op diagnosis: same Post-op Findings: large lesion, mostly in the internal Os. Procedure Done: LEEP with Tophat Specimens removed/disposition: leep specimen. Top hat specimen to pathology Surgeon: Shanna Haq Anesthesia: General Estimated blood loss (mL): 100 IV fluids (mL): 600 Complications: none Condition: stable Disposition: PACU Brief History: The patient presented for LEEP procedure in clinic and was intolerant to speculum Procedure: Procedure: LEEP After informed consent was obtained, the patient was placed in the dorsal lithotomy position. A Raymond coated speculum was placed into the vagina. A grounding pad was placed on the right thigh and smoke eliminator attached to the speculum. The cervix was cleansed with betadine. The cervix was then painted with lugols solution. Using a 10X12 mm loop, a single section of cervix was removed. It was tagged at 12:00. It was mostly anterior cervix containing the cervical os. A single pass with the tophat removed more specimen inside the os. There was brisk bleeding from one spot on the cervical bed. A ball cautery was used to cauterize the bed of the LEEP procedure. A layer of Monsel's solution was placed onto the bed as well. There was excellent hemostasis post procedure. The patient tolerated the procedure well. She will follow up in 2 weeks. She has been instructed to placed nothing in the vagina until her follow up. She is to go immediately to the ER if she has profuse bleeding.
--- NOTE | 2021-09-02 10:00 | SUR.OPER ---
moncels used on cervix per dr. solano.
--- NOTE | 2021-09-02 10:06 | PM.DCS ---
Discharge Providers Date of Discharge: September 02, 2021 Attending Provider at Discharge: Shanna Haq MD Primary Care Provider: Ibis Cameron DO Diagnoses at Discharge Discharge Diagnosis (1) CHEYANNE II (cervical intraepithelial neoplasia II): Status: Acute (2) HSIL (high grade squamous intraepithelial lesion) on Pap smear of cervix: Status: Acute Reason for Visit Reason for Visit: R87.613 Hospital Course Hospital Course The patient was admitted for LEEP procedure. She did well post procedure and was ready for discharge. She has been instructed to follow up in 2 weeks. Two separate antibiotics have been sent to the pharmacy for her. she has also been instructed on nothing per vagina for at least two week. Discharge Data Data Completed and Pending: Pending at discharge Category Date Time Status Pathology: Surgic al [PTH] Routine Pth 09/02/21 09:41 Ordered Labs from last 24 hours 09/02/21 08:25 Urine HCG, Qual Negative Vitals: Last Vital Signs Temp 98.3 F 09/02/21 06:38 Pulse 75 09/02/21 06:38 Resp 18 09/02/21 06:38 BP 119/89 09/02/21 06:38 Pulse Ox 98 09/02/21 06:38 Discharge Plan Discharge Patient Disposition: Home Condition: Stable Prescriptions: New Flagyl 500 mg tablet 500 mg PO BID 10 Days Qty: 20 RF: 0 amoxicillin 875 mg tablet 875 mg PO BID Qty: 20 RF: 0 Continued medroxyprogesterone [Depo-Provera] 150 mg/mL syringe 150 mg IM .every 3 months Qty: 1 RF: 3 acetaminophen [Tylenol] 325 mg Tablet 325 - 650 mg PO QID PRN (Reason: Pain) RF: 0 triamcinolone acetonide [Nasacort] 55 mcg Aerosol,[place] 2 spray INTRANASAL DAILY RF: 0 loratadine [Claritin] 10 mg Tablet 10 mg PO DAILY RF: 0 Discharge Orders: Discharge Order (Routine); Ordered 09/02/21 Ordered By: Shanna Haq Discharge Attestations Time Spent in Discharge Care*: less than 30 min Quality Metrics Clinical Quality Measures During this hospital stay, did patient experience: None Coding Level of Care Code Acute Chg [facility] note Diagnoses CHEYANNE II (cervical intraepithelial neoplasia II) N87.1 HSIL (high grade squamous intraepithelial lesion) on Pap smear of cervix R87.613
[2021-09-02] MEDS: ondansetron 2 mg/ML SDV 2 mL 4 MG IVP (10:07)
[2021-09-02] MEDS: fentaNYL 50 mcg/mL INJ 2mL IVP (10:42)
[2021-09-02] MEDS: HYDROcodone-acetaminophen 5-325 mg Tablet 1 TAB PO (11:39)
--- NOTE | 2021-09-02 15:36 | ANE.PACU2 ---
Inpatient post-anesthesia follow up: Airway intact: Yes Vital signs: Temperature 97.9 F Pulse Rate 81 Respiratory Rate 18 Blood Pressure 128/84 Pulse Oximetry 99 Oxygen Delivery Me thod Room Air Oxygen Flow Rate 6 Fraction of Inspir ed Oxygen Hydration adequate: Yes Nausea and vomiting: No Pain level: 4 Mental status: Baseline
== END 2021-09-02 11:43 | disposition home or self-care (01) ==
PROVIDERS: Anesthesiology; PCP Family Medicine; Visit Provider Obstetrics & Gynecology
PROC: 0UBC7ZZ Excision of Cervix, Via Natural or Artificial Opening (ICD-10-PCS; CPT 57522; principal; 2021-09-02 08:00)
DX: N87.1 Moderate cervical dysplasia (principal)
CPT/HCPCS: 57522; 81025; 84703; 88307; 96375; J1100; J1200; J1885; J2250; J2405; J2543; J2704; J3010; J7030

== ENCOUNTER 2021-09-23 17:30 | Emergency (ER) | payer BC, MEDICAID, SELFPAY ==
[2021-09-23 18:13] VITALS: BP 146/67; PULSE 97; RESP 20; TEMP 36.7; O2SAT 98
--- NOTE | 2021-09-23 18:26 | W.ED.ANIMALB ---
HPI - Animal Bite General: Chief Complaint: Animal Bite Stated Complaint: bite on inner thigh, extreme pain, red and purple Time Seen by Provider: 09/23/21 18:19 History of Present Illness: 31-year-old female comes in today with concerns of swelling and tenderness to the right inner thigh. Patient has an infected lesion that she was seen earlier than day for and started on doxycycline and some Tylenol 3 for infection and pain. Patient reports that the Tylenol 3 was not able to control her pain. Patient appears mildly unwell but not toxic. Patient appears in moderate pain. Review of Systems Skin/Breast: Reports: changing lesions PFSH ED PFSH: Medical History Anxiety Depression No pertinent past medical history neghx: htn,dm,thyroid,dvt/pe Problems related to lack of adequate sleep Surgical History Hx of section 09/20/2014: Performed in [facility]. Operative report---> primary low transverse delivery with double layer closure and no extensions. Hx of cholecystectomy Hx of laparoscopy Done on 09/10/[address] Cook at [facility] [place] for pelvic pain--laparoscopy with lysis of adheions and Nexplanon removal. At time of surgery a single area of omental adhesions onto the bladder was noted which was taken down. No sign of endometriosis.. Hx of tonsillectomy Family History Father Hypertension Family/Other Ovarian cancer maternal great grandmother, maternal grandmother and paternal grandmother. She states that all of these women have had hysterectomies however she is not sure about the diagnosis of ovarian cancer... Diabetes Paternal Aunt Thyroid disease Paternal aunt Mother Hypertension Cervical cancer dx --unknown age Grandmother Stroke Paternal Colon cancer Paternal--dx age unknown Ovarian cancer Maternal--dx age unknown Grandfather Stroke Paternal Denies family history of Heart disease Hyperlipidemia Breast cancer Uterine cancer Social History Smoking and tobacco status: former smoker Current gender identity: Female Additional social history: - Tobacco use: Never Alcohol use: Never Drug use: Marijuana--- smoked 06/13/2020-- has medical card Female Reproductive History: Date of last menstrual period: 09/12/19 Spontaneous abortions: No Physical Exam Const: COMMON NORMALS: alert HENMT: COMMON NORMALS: atraumatic HEAD & SCALP: atraumatic Neck/C-Spine: COMMON NORMALS: full ROM Resp: COMMON NORMALS: normal respiratory effort Cardio: COMMON NORMALS: regular rate and regular rhythm RATE: regular rate RHYTHM: regular rhythm Extremity: COMMON NORMALS: full ROM RIGHT LOWER EXTREMITY: Yes upper leg (6 cm area of redness with a centralized ecchymotic lesion.) Right upper leg: Yes inspection, Yes palpation and Yes neurovascular exam Neuro: SENSORIUM/ORIENTATION: Yes alert Skin: LESIONS: lesion noted (Ecchymotic lesion 1 cm to the right upper thigh with surrounding 6 cm red) Course Vital Signs: Vital signs: Vital Signs Temperature 98.0 F 09/23/21 18:13 Pulse Rate 88 09/23/21 18:30 Respiratory Rate 18 09/23/21 18:41 Blood Pressure 115/81 09/23/21 18:30 Pulse Oximetry 98 09/23/21 18:30 MDM - Animal Bite Medical Decision Making 31-year-old female comes in today with a painful lesion to the right inner thigh. Examination notes a 1 cm ecchymotic lesion with surrounding area of redness that is approximately 6 cm. No central ballottement is noted. Patient noticed a lesion Wednesday. Patient was seen today at urgent care and was started on doxycycline for wound infection. Differential diagnosis includes infected insect bite, abscess, cellulitis. Patient was given medication for pain to include 4 mg of morphine IM and 30 mg ketorolac IM. Patient was given dexamethasone for inflammation. Patient was given 1 dose of 300 mg of clindamycin. Patient will be continued on clindamycin and hydrocodone. Patient reported understanding of care plan and need for follow-up or return. Discharge Plan Discharge Patient Disposition: Home Clinical Impression: Infected insect bite Qualifiers: Encounter type: initial encounter Qualified Code(s): W57.XXXA - Bitten or stung by nonvenomous insect and other nonvenomous arthropods, initial encounter Condition: Stable Prescriptions: New hydrocodone-acetaminophen 5-325 mg tablet 1 tab PO Q6H PRN (Reason: Pain (Scale Score 7-10)) Qty: 7 0RF clindamycin HCl 300 mg capsule 300 mg PO TID 7 Days Qty: 21 0RF No Action medroxyprogesterone [Depo-Provera] 150 mg/mL syringe 150 mg IM .every 3 months Qty: 1 3RF acetaminophen-codeine 300-30 mg tablet 1 tab PO Q4H PRN (Reason: pain) Qty: 10 0RF doxycycline hyclate 100 mg tablet 100 mg PO BID 10 Days Qty: 20 0RF acetaminophen [Tylenol] 325 mg Tablet 325 - 650 mg PO QID PRN (Reason: Pain) 0RF triamcinolone acetonide [Nasacort] 55 mcg Aerosol,[place] 2 spray INTRANASAL DAILY 0RF loratadine [Claritin] 10 mg Tablet 10 mg PO DAILY 0RF Discharge Orders: Discharge ED (Routine); Ordered 09/23/21 Ordered By: Devan Mariscal Referrals: Ibis Cameron DO [Primary Care Provider] - Discharge Diet: Usual diet Discharge Activity: Increase activity as tolerated Patient Instructions: Abscess (ED), Opioid Safety Activity Restrictions/Additional Instructions: Your body is developing an abscess at the site of the insect bite. It may need to be drained at a later date. At this time is recommended that you use warm moist packs or warm water soaks. I would recommend drawing a warm to hot bath with 1/8 to 1/4 cup of bleach added to the water. Soak in the tub for about 10 to 15 minutes. Do this 3-4 times a day. It is not recommended to use drawing salves like Prid. Continue with antibiotics as directed. Follow-up with primary care in 2 days for recheck. At that time it may need to be incised. Do not stick a needle into the wound. The abscess may open up on its own at that time just cover the wound to prevent drainage from infecting others. Make sure to clean your tub after bathing and showering, and do not share any towels. Often the causative organism is Staph aureus. Stand Alone Forms: Work/School Release Coding Level of Care Code ED Chief Scientific Officer for [employer] History Expanded Problem Focused Exam Detailed Medical Decision Making Low Complexity Time Spent (min) 20
[2021-09-23 18:30] VITALS: BP 115/81; PULSE 88; RESP 20; O2SAT 98
[2021-09-23 18:41] VITALS: RESP 18
[2021-09-23] MEDS: morphine 4 mg/mL SDV 1 mL IM (18:41)
[2021-09-23] MEDS: dexamethasone 4 mg Tablet 10 MG PO (18:46)
[2021-09-23] MEDS: ketorolac 30 mg/mL INJ IM (18:48)
[2021-09-23] MEDS: clindamycin 150 mg Capsule 300 MG PO (18:49)
== END 2021-09-23 18:59 | disposition home or self-care (01) ==
PROVIDERS: Emergency Provider Nurse Practitioner Family; PCP Family Medicine
DX: S70.361A Insect bite (nonvenomous), right thigh, initial encounter (principal); L08.9 Local infection of the skin and subcutaneous tissue, unspecified; W57.XXXA Bitten or stung by nonvenomous insect and other nonvenomous arthropods, initial encounter; Z87.891 Personal history of nicotine dependence
CPT/HCPCS: 96372; 99283; J1885; J2270; J8540

== ENCOUNTER → 2021-11-28 07:45 | Outpatient (BNVA) | payer BC, MEDICAID, SELFPAY | PROVIDERS: PCP Family Medicine; Visit Provider Surgery | DX: L02.91 Cutaneous abscess, unspecified (principal) | CPT/HCPCS: 99204 ==

== ENCOUNTER 2021-12-04 09:56 | Emergency (ER) | payer BC, MEDICAID, SELFPAY ==
[2021-12-04] VITALS (7 sets, daily range): BP systolic 108–131; BP diastolic 22–66; PULSE 62–88; RESP 14–18; TEMP 37.4; O2SAT 99–100; BMI 32.1
--- NOTE | 2021-12-04 11:33 | US_ITS ---
WS: [id number] ULTRASOUND SOFT TISSUES RIGHT axilla. HISTORY: Right axillary pain and swelling COMPARISON: None available. TECHNIQUE: 2-D and color Doppler imaging is submitted. There is a complex inflammatory mass in the RIGHT axilla. Increased peripheral vascularity. The wall is not well formed. There is infiltration of edema within the soft tissues. Mass measures 5.8 x 1.6 c m. This is very superficial and lies just beneath the skin surface. US/US soft tissue/extremity 33305 IMPRESSION: Inflammatory soft tissue mass with debris and increased peripheral vascularity in the RIGHT axilla. Most consistent with a superficial axillary abscess. Necro tic lymph node within the differential but thought less likely.
--- NOTE | 2021-12-04 11:38 | ED_ITS ---
Documented by User: MARYLOU Landaverde 12/05/21 07:24 HPI - Extremity Problem General: Chief complaint: Extremity Problem,Nontraumatic Stated complaint: abcess in armpit Time Seen by Provider: 12/04/21 11:02 History of Present Illness: Patient is a 31-year-old female comes to the ED with right axillary abscess. The abscess in her right axillary region started November 04. She was seen by her PCP first and put on antibiotic and referred to general surgery. Saw general surgeon Dr. Ousmane mark on November 28. He did not think abscess needed to be drained at that time and put her on some clindamycin. He told her that if she has any worsening pain or swelling he would have her do an ultrasound of right axillary to better evaluate abscess. Over the past cou ple days patient's pain and swelling in the right axillary region has gotten worse. She rates the pain a 10 out of 10. She says if she moves her arm at all it causes worsening pain. She also endorses having some nausea and vomiting and decreased appetite as well over the past several days. Patient says she has been taking her clindamycin as prescribed but stopped taking it 3 days ago because she was unable to keep food or fluids down. Associated symptoms: Deny chest pain, fever(s) or rash Review of Systems Const: Denies: fever(s), chills or fatigue Eyes: Denies: change in vision or eye discomfort ENMT: Denies: throat pain, odynophagia, nasal discharge or nasal congestion Card: Denies: chest pain, palpitations, edema, swelling of feet/ankles, dyspnea on exertion or orthopnea Resp: Denies: dyspnea, productive cough or non-productive cough GI: Denies: abdominal pain, nausea, vomiting, diarrhea, constipation or hematochezia : Denies: flank pain, dysuria or hematuria Musc: Denies: neck pain, back pain or extremity swelling Skin/Breast: Reports: new lesions (Right axillary abscess); Denies: rash Neuro: Denies: headache(s), numbness in extremities or weakness in extremities [facility] ED PFSH: Medical History Abscess Anxiety Depression Surgical History Hx of section 09/20/2014: Performed in [facility] [place] [facility]. Operative report---> primary low transverse delivery with double layer closure and no extensions. Hx of cholecystectomy Hx of laparoscopy Done on 09/10/[address] Cook [place] [facility] [place]--laparoscopy with lysis of adheions and Nexplanon removal. At time of surgery a single area of omental adhesions onto the bladder was noted which was taken down. No sign of endometriosis.. Hx of tonsillectomy Family History Father Hypertension Family/Other Ovarian cancer maternal great grandmother, maternal grandmother and paternal grandmother. She states that all of these women have had hysterectomies however she is not sure about the diagnosis of ovarian cancer... Diabetes Paternal Aunt Thyroid disease Paternal aunt Mother Hypertension Cervical cancer dx --unknown age Grandmother Stroke Paternal Colon cancer Paternal--dx age unknown Ovarian cancer Maternal--dx age unknown Grandfather Stroke Paternal Denies family history of Heart disease Hyperlipidemia Breast cancer Uterine cancer Social History Smoking and tobacco status: former smoker Current gender identity: Female Additional social history: - Tobacco use: Never Alcohol use: Never Drug use: Marijuana--- smoked 06/13/2020-- has medical card Female Reproductive History: Date of last menstrual period: 10/30/21 Spontaneous abortions: No Physical Exam Const: COMMON NORMALS: patient oriented x3 and alert GENERAL APPEARANCE: cooperative HENMT: COMMON NORMALS: normocephalic HEAD & SCALP: normocephalic MOUTH: Normal oral and palatal mucosa present THROAT: posterior oropharynx normal and uvula midline Neck/C-Spine: COMMON NORMALS: supple GENERAL: Yes normal visual inspection Resp: COMMON NORMALS: normal respiratory effort, No retractions, No use of accessory muscles and clear to auscultation bilaterally AUSCULTATION: clear to auscultation bilaterally Cardio: COMMON NORMALS: regular rate, regular rhythm, S1 normal heart sound p resent, S2 normal heart sound present, No gallops present (Cardio), No clicks present (Cardio), No murmurs present (Cardio) and Peripheral pulses 2+ throughout RATE: regular rate RHYTHM: regular rhythm HEART SOUNDS: S1 normal heart sound present and S2 normal heart sound present PERIPHERAL PULSES: Peripheral pulses 2+ throughout GI: COMMON NORMALS: Normal to inspection, nondistended, normoactive bowel sounds present, Soft to palpation, non-tender and no masses PALPATION: Yes Soft to palpation : COMMON NORMALS: Yes no CVA tenderness BLADDER/KIDNEY EXAM: Yes no CVA tenderness Back/Pelvis: COMMON NORMALS: no CVA tenderness Extremity: NARRATIVE EXTREMITY EXAM: Right axillary?warm, erythemic tender nodule that is fluctuant and nonindurated. Palpable size approximately 5 cm in diameter. Findings suggestive of a abscess. GENERAL: Yes normal exam except as noted Neuro: COMMON NORMALS: patient oriented x3 and moves all extremities SENSORIUM/ORIENTATION: Yes alert Skin: NARRATIVE SKIN EXAM: Right axillary?warm, erythemic tender nodule that is fluctuant and nonindurated. Palpable size approximately 5 cm in diameter. Findings suggestive of a abscess. GENERAL SKIN EXAM: dry skin Procedures Abscess I/D Site: upper extremity (Right axilla) Side (if applicable): right Sedation/analgesia: other (Patient was given a dose of 1 g Dilaudid before proce dure.) Local Anesthetic: lidocaine 1% Amount of anesthesia used (mL): 5 Technique: incised with #11 blade Amount of fluid expressed (mL): 10 (Purulent drainage) Irrigation: No Packing used?: plain Course Vital Signs: Vital signs: Vital Signs Temperature 99.3 F 12/04/21 10:53 Pulse Rate 67 12/04/21 15:37 Respiratory Rate 18 12/04/21 15:37 Blood Pressure 108/66 12/04/21 15:37 Pulse Oximetry 99 12/04/21 15:37 MDM - Extremity (Nontraumatic) Medical Decision Making Patient is a 31-year-old female who comes to the ED with a right axillary abscess. She was seen previously by Dr. Ousmane mark on November 28 for same complaint and he put her on clindamycin and told her that if it gets worse she is going to do an ultrasound to better evaluate abscess. Here in the ED patient had a white blood cell count of 15.5 and the rest of her labs were unremarkable. Soft tissue ultrasound of right axillary showed a superficial axillary abscess. Patient was given some IV Dilaudid to help with pain and lidocaine 1% was used as local. Abscess opened and drained and packing put in place. Patient was told to follow-up with ED, primary care doctor or care in the next 48 hours to have packing removed. She was discharged home with a prescription for Augmentin. I also placed an order with case management for her to be referred to Dr. Romeo for follow-up on right axillary abscess. Return to ED precautions given. Patient understood agree with plan. Lab Data I reviewed the patient's lab results. : 12/04/21 11:39 12/04/21 11:39 Radiology Impressions Soft Tissue Ultrasound 12/04/21 11:33 IMPRESSION: Inflammatory soft tissue mass with debris and increased peripheral vascularity in the RIGHT axilla. Most consistent with a superficial axillary abscess. Necrotic lymph node within the differential but thought less likely. Laboratory Results WBC 15.5 10^3/uL (4.0-10.0) H 12/04/21 11:39 RBC 4.87 10^6/uL (4.1-5.3) 12/04/21 11:39 Hgb 12.8 g/dL (11.5-15.3) 12/04/21 11:39 Hct 40.3 % (37.0-47.0) 12/04/21 11:39 MCV 82.8 fl (81-99) 12/04/21 11:39 MCH 26.3 pg (28.0-34.0) L 12/04/21 11:39 MCHC 31.8 g/dL (30.0-36.0) 12/04/21 11:39 RDW 12.6 % (12.1-15.1) 12/04/21 11:39 Plt Count 663 10^3/cmm (130-400) H 12/04/21 11:39 MPV 9.0 fL (7.4-10.4) 12/04/21 11:39 Neut % (Auto) 76.5 % 12/04/21 11:39 Lymph % (Auto) 16.6 % 12/04/21 11:39 [place] % (Auto) 5.7 % 12/04/21 11:39 Eos % (Auto) 0.3 % 12/04/21 11:39 Baso % (Auto) 0.4 % 12/04/21 11:39 Neut # (Auto) 11.88 10^3/uL (1.8-7.7) H 12/04/21 11:39 Lymph # (Auto) 2.6 10^3/uL (0.8-4.8) 12/04/21 11:39 [place] # (Auto) 0.9 10^3/uL (0.2-0.9) 12/04/21 11:39 Eos # (Auto) 0.1 10^3/uL (0.0-0.8) 12/04/21 11:39 Baso # (Auto) 0.1 10^3/uL (0.0-0.1) 12/04/21 11:39 Nucleated RBC % (auto) 0 % 12/04/21 11:39 Nucleated RBCs # 0.0 /100WBC 12/04/21 11:39 Sodium 137 mmol/L (136-145) 12/04/21 11:39 Potassium 3.5 mmol/L (3.5-5.1) 12/04/21 11:39 Chloride 98 mmol/L (98-107) 12/04/21 11:39 Carbon Dioxide 22 mmol/L (22-29) 12/04/21 11:39 Anion Gap 20.5 (5-19) H 12/04/21 11:39 BUN 6 mg/dL (6-20) 12/04/21 11:39 Creatinine 0.4 mg/dL (0.5-0.9) L 12/04/21 11:39 GFR Calculation 188.7 mL/min (90-130) H 12/04/21 11:39 Glucose 89 mg/dL (65-115) 12/04/21 11:39 Calculated Osmolality 281 mOsm/kg (285-295) L 12/04/21 11:39 Calcium 10.2 mg/dL (8.5-10.5) 12/04/21 11:39 Total Bilirubin 0.3 mg/dL (0.15-1.2) 12/04/21 11:39 AST 27 U/L (0-32) 12/04/21 11:39 ALT 40 U/L (0-33) H 12/04/21 11:39 Alkaline Phosphatase 113 IU/L (35-105) H 12/04/21 11:39 Total Protein 8.2 g/dL (6.6-8.7) 12/04/21 11:39 Albumin 4.8 g/dL (3.5-5.2) 12/04/21 11:39 Globulin 3.4 g/dL (1.3-4.6) 12/04/21 11:39 Lipase 11 U/L (13-60) L 12/04/21 11:39 HCG, Qual Negative (Negative) 12/04/21 11:39 Urine Color Yellow (Yellow) 12/04/21 10:06 Urine Appearance Clear (CLEAR) 12/04/21 10:06 Urine pH 5 (5-7) 12/04/21 10:06 Ur Specific [place] 1.010 (1.005-1.030) 12/04/21 10:06 Urine Protein Trace (Negative) 12/04/21 10:06 Urine Glucose (UA) Norm (Normal) 12/04/21 10:06 Urine Ketones 3+ (Negative) H 12/04/21 10:06 Urine Blood 2+ (Negative) H 12/04/21 10:06 Urine Nitrate Negative (Negative) 12/04/21 10:06 Urine Bilirubin Neg (Negative) 12/04/21 10:06 Urine Urobilinogen Norm mg/dL (Negative) 12/04/21 10:06 Ur Leukocyte Esterase Negative (Negative) 12/04/21 10:06 Urine RBC 0-4 /hpf (0-2) H 12/04/21 10:06 Urine WBC 5-10 /hpf (0-5) H 12/04/21 10:06 Ur Squamous Epith Cells 0-4 /hpf (0-5) H 12/04/21 10:06 Amorphous Sediment Not Reportable 12/04/21 10:06 Urine Bacteria None /hpf (NONE) 12/04/21 10:06 Urine Mucus 1+ /hpf 12/04/21 10:06 Discharge Plan Discharge Patient Disposition: Home Clinical Impression: Abscess Condition: Stable Prescriptions: New amoxicillin-pot clavulanate 875-125 mg tablet 1 tab PO BID 7 Days Qty: 14 0RF ondansetron 4 mg tablet,disintegrating 4 mg PO Q8H PRN (Reason: nausea and vomiting) Qty: 15 0RF No Action medroxyprogesterone [Depo-Provera] 150 mg/mL syringe 150 mg IM .every 3 months Qty: 1 3RF acetaminophen-codeine 300-30 mg tablet 1 tab PO Q4H PRN (Reason: pain) Qty: 10 0RF clindamycin HCl 300 mg capsule 300 mg PO Q8H 7 Days Qty: 21 0RF acetaminophen [Tylenol] 325 mg Tablet 325 - 650 mg PO QID PRN (Reason: Pain) 0RF triamcinolone acetonide [Nasacort] 55 mcg Aerosol,[place] 2 spray INTRANASAL DAILY 0RF loratadine [Claritin] 10 mg Tablet 10 mg PO DAILY 0RF hydrocodone-acetaminophen 5-325 mg tablet 1 tab PO Q6H PRN (Reason: Pain (Scale Score 7-10)) Qty: 7 0RF Discharge Orders: Discharge ED (Routine); Ordered 12/04/21 Ordered By: Spencer Braga Referrals: Ibis Cameron DO [Primary Care Provider] - Discharge Diet: Regular Discharge Activity: Increase activity as tolerated Patient Instructions: Abscess (ED), Abscess Follow-up (ED), Opioid Safety Activity Restrictions/Additional Instructions: Follow-up with medical provider as directed. You need to return to ED, urgent care or PCP to have abscess packing removed in the next 24 to 48 hours. Case management should be contacted in the next several days to set up an appointment with Dr. Romeo for reevaluation of abscess. Take medications as prescribed. Return to the ER or your medical provider if condition worsens. Please read and understand discharge instructions. Thank you for choosing [facility] for your healthcare needs today. Please realize this is an emergency room and that we are providing you with a medical screening exam and this may not be complete and all inclusive of all the testing and or work up that you may need to determine your ailment or severity of your illness. It is very important that you follow up as instructed or that you return to the Emergency Department should you have concerns or if your condition changes or worsens in any way. Coding Level of Care Code ED Bench Inspector for Chg Fwd Exam Comprehensive Documented by User: Nate Pickering DO 12/08/21 06:17 HPI - Extremity Problem General: Chief complaint: Extremity Problem,Nontraumatic Stated complaint: abcess in armpit Time Seen by Provider: 12/04/21 11:02 [facility] ED PFS: Medical History Abscess Anxiety Depression Surgical History Hx of section 09/20/2014: Performed in [facility] [place]. Operative report---> primary low transverse delivery with double layer closure and no extensions. Hx of cholecystectomy Hx of laparoscopy Done on 09/10/[address] Cook [place] [facility] [place]--laparoscopy with lysis of adheions and Nexplanon removal. At time of surgery a single area of omental adhesions onto the bladder was noted which was taken down. No sign of endometriosis.. Hx of tonsillectomy Family History Father Hypertension Family/Other Ovarian cancer maternal great grandmother, maternal grandmother and paternal grandmother. She states that all of these women have had hysterectomies however she is not sure about the diagnosis of ovarian cancer... Diabetes Paternal Aunt Thyroid disease Paternal aunt Mother Hypertension Cervical cancer dx --unknown age Grandmother Stroke Paternal Colon cancer Paternal--dx age unknown Ovarian cancer Maternal--dx age unknown Grandfather Stroke Paternal Denies family history of Heart disease Hyperlipidemia Breast cancer Uterine cancer Social History Smoking and tobacco status: former smoker Current gender identity: Female Additional social history: - Tobacco use: Never Alcohol use: Never Drug use: Marijuana--- smoked 06/13/2020-- has medical card Course Vital Signs: Vital signs: Vital Signs Temperature 99.3 F 12/04/21 10:53 Pulse Rate 67 12/04/21 15:37 Respiratory Rate 18 12/04/21 15:37 Blood Pressure 108/66 12/04/21 15:37 Pulse Oximetry 99 12/04/21 15:37 MDM - Extremity (Nontraumatic) Medical Decision Making Patient is a 31-year-old female who comes to the ED with a right axillary abscess. She was seen previously by Dr. Romeo back on November 28 for same complaint and he put her on clindamycin and told her that if it gets worse she is going to do an ultrasound to better evaluate abscess. Here in the ED patient had a white blood cell count of 15.5 and the rest of her labs were unremarkable. Soft tissue ultrasound of right axillary showed a superficial axillary abscess. Patient was given some IV Dilaudid to help with pain and lidocaine 1% was used as local. Abscess opened and drained and packing put in place. Patient was told to follow-up with ED, primary care doctor or care in the next 48 hours to have packing removed. She was discharged home with a prescription for Augmentin. I also placed an order with case management for her to be referred to Dr. Romeo for follow-up on right axillary abscess. Return to ED precautions given. Patient understood agree with plan. Chart reviewed and patient discussed with midlevel. Agree with assessment and plan. Lab Data : 12/04/21 11:39 12/04/21 11:39 Radiology Impressions Soft Tissue Ultrasound 12/04/21 11:33 IMPRESSION: Inflammatory soft tissue mass with debris and increased peripheral vascularity in the RIGHT axilla. Most consistent with a superficial axillary abscess. Necrotic lymph node within the differential but thought less likely. Laboratory Results WBC 15.5 10^3/uL (4.0-10.0) H 12/04/21 11:39 RBC 4.87 10^6/uL (4.1-5.3) 12/04/21 11:39 Hgb 12.8 g/dL (11.5-15.3) 12/04/21 11:39 Hct 40.3 % (37.0-47.0) 12/04/21 11:39 MCV 82.8 fl (81-99) 12/04/21 11:39 MCH 26.3 pg (28.0-34.0) L 12/04/21 11:39 MCHC 31.8 g/dL (30.0-36.0) 12/04/21 11:39 RDW 12.6 % (12.1-15.1) 12/04/21 11:39 Plt Count 663 10^3/cmm (130-400) H 12/04/21 11:39 MPV 9.0 fL (7.4-10.4) 12/04/21 11:39 Neut % (Auto) 76.5 % 12/04/21 11:39 Lymph % (Auto) 16.6 % 12/04/21 11:39 [place] % (Auto) 5.7 % 12/04/21 11:39 Eos % (Auto) 0.3 % 12/04/21 11:39 Baso % (Auto) 0.4 % 12/04/21 11:39 Neut # (Auto) 11.88 10^3/uL (1.8-7.7) H 12/04/21 11:39 Lymph # (Auto) 2.6 10^3/uL (0.8-4.8) 12/04/21 11:39 [place] # (Auto) 0.9 10^3/uL (0.2-0.9) 12/04/21 11:39 Eos # (Auto) 0.1 10^3/uL (0.0-0.8) 12/04/21 11:39 Baso # (Auto) 0.1 10^3/uL (0.0-0.1) 12/04/21 11:39 Nucleated RBC % (auto) 0 % 12/04/21 11:39 Nucleated RBCs # 0.0 /100WBC 12/04/21 11:39 Sodium 137 mmol/L (136-145) 12/04/21 11:39 Potassium 3.5 mmol/L (3.5-5.1) 12/04/21 11:39 Chloride 98 mmol/L (98-107) 12/04/21 11:39 Carbon Dioxide 22 mmol/L (22-29) 12/04/21 11:39 Anion Gap 20.5 (5-19) H 12/04/21 11:39 BUN 6 mg/dL (6-20) 12/04/21 11:39 Creatinine 0.4 mg/dL (0.5-0.9) L 12/04/21 11:39 GFR Calculation 188.7 mL/min (90-130) H 12/04/21 11:39 Glucose 89 mg/dL (65-115) 12/04/21 11:39 Calculated Osmolality 281 mOsm/kg (285-295) L 12/04/21 11:39 Calcium 10.2 mg/dL (8.5-10.5) 12/04/21 11:39 Total Bilirubin 0.3 mg/dL (0.15-1.2) 12/04/21 11:39 AST 27 U/L (0-32) 12/04/21 11:39 ALT 40 U/L (0-33) H 12/04/21 11:39 Alkaline Phosphatase 113 IU/L (35-105) H 12/04/21 11:39 Total Protein 8.2 g/dL (6.6-8.7) 12/04/21 11:39 Albumin 4.8 g/dL (3.5-5.2) 12/04/21 11:39 Globulin 3.4 g/dL (1.3-4.6) 12/04/21 11:39 Lipase 11 U/L (13-60) L 12/04/21 11:39 HCG, Qual Negative (Negative) 12/04/21 11:39 Urine Color Yellow (Yellow) 12/04/21 10:06 Urine Appearance Clear (CLEAR) 12/04/21 10:06 Urine pH 5 (5-7) 12/04/21 10:06 Ur Specific [place] 1.010 (1.005-1.030) 12/04/21 10:06 Urine Protein Trace (Negative) 12/04/21 10:06 Urine Glucose (UA) Norm (Normal) 12/04/21 10:06 Urine Ketones 3+ (Negative) H 12/04/21 10:06 Urine Blood 2+ (Negative) H 12/04/21 10:06 Urine Nitrate Negative (Negative) 12/04/21 10:06 Urine Bilirubin Neg (Negative) 12/04/21 10:06 Urine Urobilinogen Norm mg/dL (Negative) 12/04/21 10:06 Ur Leukocyte Esterase Negative (Negative) 12/04/21 10:06 Urine RBC 0-4 /hpf (0-2) H 12/04/21 10:06 Urine WBC 5-10 /hpf (0-5) H 12/04/21 10:06 Ur Squamous Epith Cells 0-4 /hpf (0-5) H 12/04/21 10:06 Amorphous Sediment Not Reportable 12/04/21 10:06 Urine Bacteria None /hpf (NONE) 12/04/21 10:06 Urine Mucus 1+ /hpf 12/04/21 10:06 Discharge Plan Discharge Patient Disposition: Home Clinical Impression: Abscess Condition: Stable Prescriptions: New amoxicillin-pot clavulanate 875-125 mg tablet 1 tab PO BID 7 Days Qty: 14 0RF ondansetron 4 mg tablet,disintegrating 4 mg PO Q8H PRN (Reason: nausea and vomiting) Qty: 15 0RF No Action medroxyprogesterone [Depo-Provera] 150 mg/mL syringe 150 mg IM .every 3 months Qty: 1 3RF acetaminophen-codeine 300-30 mg tablet 1 tab PO Q4H PRN (Reason: pain) Qty: 10 0RF clindamycin HCl 300 mg capsule 300 mg PO Q8H 7 Days Qty: 21 0RF acetaminophen [Tylenol] 325 mg Tablet 325 - 650 mg PO QID PRN (Reason: Pain) 0RF triamcinolone acetonide [Nasacort] 55 mcg Aerosol,[place] 2 spray INTRANASAL DAILY 0RF loratadine [Claritin] 10 mg Tablet 10 mg PO DAILY 0RF hydrocodone-acetaminophen 5-325 mg tablet 1 tab PO Q6H PRN (Reason: Pain (Scale Score 7-10)) Qty: 7 0RF Discharge Orders: Discharge ED (Routine); Ordered 12/04/21 Ordered By: Spencer Braga Referrals: Ibis Cameron DO [Primary Care Provider] - Discharge Diet: Regular Discharge Activity: Increase activity as tolerated Patient Instructions: Abscess (ED), Abscess Follow-up (ED), Opioid Safety Activity Restrictions/Additional Instructions: Follow-up with medical provider as directed. You need to return to ED, urgent care or PCP to have abscess packing removed in the next 24 to 48 hours. Case management should be contacted in the next several days to set up an appointment with Dr. Romeo for reevaluation of abscess. Take medications as prescribed. Return to the ER or your medical provider if condition worsens. Please read and understand discharge instructions. Thank you for choosing [facility] for your healthcare needs today. Please realize this is an emergency room and that we are providing you with a medical screening exam and this may not be complete and all inclusive of all the testing and or work up that you may need to determine your ailment or severity of your illness. It is very important that you follow up as instructed or that you return to the Emergency Department should you have concerns or if your condition changes or worsens in any way. Coding Level of Care Code ED Bench Inspector for Kamaljit Buckley Exam Comprehensive
[2021-12-04] MEDS: sodium chloride 0.9% 1,000 ML 999 ML IV (11:49)
[2021-12-04] MEDS: ondansetron 2 mg/ML SDV 2 mL 4 MG IVP (11:50)
[2021-12-04] MEDS: morphine 4 mg/mL SDV 1 mL IVP (11:50)
[2021-12-04 11:52] LABS: Basophils # 0.1 10^3/uL (0.0-0.1); Basophils % 0.4 %; Eosinophils # 0.1 10^3/uL (0.0-0.8); Eosinophils % 0.3 %; Hematocrit 40.3 % (37.0-47.0); Hemoglobin 12.8 g/dL (11.5-15.3); Lymphocytes # 2.6 10^3/uL (0.8-4.8); Lymphocytes % 16.6 %; Mean Corpuscular HGB Conc 31.8 g/dL (30.0-36.0); Mean Corpuscular Hemoglobin 26.3 pg (28.0-34.0); Mean Corpuscular Volume 82.8 fl (81-99); Monocytes # 0.9 10^3/uL (0.2-0.9); Monocytes % 5.7 %; Neutrophils # 11.88 10^3/uL (1.8-7.7); Neutrophils % 76.5 %; Nucleated Red Blood Cells % 0 %; Platelet Count 663 10^3/cmm (130-400); Red Blood Count 4.87 10^6/uL (4.1-5.3); Red Cell Distribution Width 12.6 % (12.1-15.1); White Blood Count 15.5 10^3/uL (4.0-10.0)
[2021-12-04 12:26] LABS: Alanine Aminotransferase 40 U/L (0-33); Albumin Level 4.8 g/dL (3.5-5.2); Alkaline Phosphatase 113 IU/L (35-105); Anion Gap 20.5 (5-19); Aspartate Amino Transferase 27 U/L (0-32); Blood Urea Nitrogen 6 mg/dL (6-20); Calcium 10.2 mg/dL (8.5-10.5); Carbon Dioxide 22 mmol/L (22-29); Chloride 98 mmol/L (98-107); Globulin 3.4 g/dL (1.3-4.6); Glomerular Filtration Rate 188.7 mL/min (90-130); Glucose 89 mg/dL (65-115); Lipase 11 U/L (13-60); Osmolality Calculated 281 mOsm/kg (285-295); Potassium 3.5 mmol/L (3.5-5.1); Sodium 137 mmol/L (136-145); Total Bilirubin 0.3 mg/dL (0.15-1.2); Total Protein 8.2 g/dL (6.6-8.7)
[2021-12-04 12:34] LABS: HCG, Serum Qual Negative (Negative)
[2021-12-04 12:45] LABS: Blood Urine 2+ (Negative); Glucose Urine UA Norm (Normal); Ketones Urine 3+ (Negative); Nitrate Urine Negative (Negative); Protein Urine Trace (Negative); Urine Appearance Clear (CLEAR); Urine Color Yellow (Yellow); pH Urine 5 (5-7)
[2021-12-04 12:46] LABS: Add Urine Microscopic? YES; Bilirubin Urine Neg (Negative); Leukocyte Esterase Urine Negative (Negative); Urobilinogen Urine Norm (Negative)
[2021-12-04 12:47] LABS: Add Urine Culture? No; Mucus Urine 1+ /hpf; RBC Urine 0-4 /hpf (0-2); Squamous Epithelial Cell Urine 0-4 /hpf (0-5)
[2021-12-04] MEDS: HYDROmorphone 1 mg/mL INJ 1 mL 0.5 MG IVP ×2 (13:02→13:57)
[2021-12-04] MEDS: diphenhydrAMINE 50 mg/mL SDV 1mL 25 MG IVP (14:35)
[2021-12-04] MEDS: oxyCODONE-APAP 5-325 mg Tablet 1 TAB PO (15:25)
--- NOTE | 2021-12-05 13:40 | DCPLANNER ---
quality assurance manager had message to schedule a follow up appointment for patient with Dr. Romeo at general surgery. quality assurance manager sent patients information to the front staff at general surgery. Patients information will be printed and reviewed. Clinic will call patient with appointment information.
--- NOTE | 2021-12-05 13:43 | DCPLANNER ---
Addendum entered by Nannette Coronel 12/17/21 10:01: Patient had a follow up appointment scheduled for 12.16.21 with general surgery - patient did attend appointment. Addendum entered by Nannette Coronel 12/10/21 07:59: Patient has a follow up appointment scheduled for Thursday, December 16, 2021 at 1:[address] Romeo at General Surgery. Clinic will call patient with appointment information. Original Note: manager winter had message to schedule a follow up appointmet for patient with general surgery. manager winter sent patients information to the front staff at general surgery. Patients information will be printed and review. Clinic will call patient with appointment information.
== END 2021-12-04 15:38 | disposition home or self-care (01) ==
PROVIDERS: Emergency Provider Physician Assistant; PCP Family Medicine
DX: L02.411 Cutaneous abscess of right axilla (principal); Z87.891 Personal history of nicotine dependence; Z79.891 Long term (current) use of opiate analgesic
CPT/HCPCS: 10060; 36415; 76882; 80053; 81001; 83690; 84703; 85025; 87040; 87070; 87075; 87077; 87186; 87205; 96361; 96374; 96375; 96376; 99284; J1170; J1200; J2270; J2405; J7030

== ENCOUNTER → 2021-12-16 13:17 | Outpatient (BNVA) | payer BC, MEDICAID, SELFPAY | PROVIDERS: PCP Family Medicine; Visit Provider Surgery | DX: L02.91 Cutaneous abscess, unspecified (principal) | CPT/HCPCS: 36415; 85025; 99213 ==

== ENCOUNTER → 2022-01-26 14:54 | Outpatient (BNVA) | payer BC, MEDICAID, SELFPAY | PROVIDERS: PCP Family Medicine; Visit Provider Obstetrics & Gynecology | DX: R87.613 High grade squamous intraepithelial lesion on cytologic smear of cervix (HGSIL) (principal) | CPT/HCPCS: 88175 ==

== ENCOUNTER 2022-02-24 09:21 | Observation (INO) | payer BC, MEDICAID, SELFPAY ==
[2022-02-20 15:17] VITALS: BMI 20.2
[2022-02-24] VITALS (22 sets, daily range): BP systolic 90–144; BP diastolic 54–92; PULSE 54–113; RESP 16–20; TEMP 36.1–36.7; O2SAT 95–100
[2022-02-24 06:01] LABS: OR HCG Qualitative Urine Negative (Negative)
[2022-02-24] MEDS: acetaminophen 1,000 MG/100 ML PIGGYBACK 400 MG IV (06:28)
[2022-02-24] MEDS: sodium chloride 0.9% 1,000 ML 30 ML IV (06:28)
[2022-02-24] MEDS: scopolamine 1.5 Patch 1 PATCH TRANSDERMA (06:31)
[2022-02-24] MEDS: ketorolac 30 mg/mL INJ IVP ×2 (06:32→14:50)
--- NOTE | 2022-02-24 06:42 | ANES.PREANE2 ---
Pre-Anesthetic Assessment Height/Weight: Height 1.5 m Weight 69.4 kg Temp Pulse Resp BP Pulse Ox 98.0 F 74 18 115/83 98 02/24/22 06:06 02/24/22 06:06 02/24/22 06:06 02/24/22 06:06 02/24/22 06:06 Preop Diagnosis: high grade dysplasia of cervix, chronic pelvic pain Operation Date: 02/24/22 07:00 Proposed Procedures p Laparoscopic assisted vaginal hysterectomy, bilateral salpingectomy 32143,N87.1(Not Applicable) - Shanna Haq MD s Laparoscopic Salpingectomy(Not Applicable) - Shanna Haq MD Familial anesthetic complications: PONV Was Beta Erin taken within 24 hours: N/A Was Clonidine taken within 24 hours: N/A Last intake: Intake Last Liquid Date 02/23/22 Last Liquid Time 21:00 Last Solid Date 02/23/22 Last Solid Time 17:30 Social No alcohol and No tobacco marijuana for chronic pain, not taken today Exam alert, oriented x 3, clear to auscultation bilaterally and regular rate & rhythm Airway Mallampati: Class I Dentition: chipped (front) GI Gastroesophageal Reflux Disease Musc/skel Lower Back Pain (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) Anesthetic Plan ASA status: 2 Anesthesia: General Risk of > 500 ml blood loss (7ml/kg in children): No Medications/Allergies Home Medications Medication Instructions Recorded Confirmed Last Taken Type acetaminophen 325 mg tablet 325 - 650 mg PO QID PRN 11/15/20 02/24/22 02/23/22 History (Tylenol) loratadine 10 mg tablet (Claritin) 10 mg PO DAILY 11/15/20 02/24/22 02/23/22 History triamcinolone acetonide 55 mcg 2 spray INTRANASAL DAILY 11/15/20 02/24/22 02/23/22 History nasal spray aerosol (Nasacort) docusate sodium 50 mg capsule 50 mg PO DAILY 02/24/22 02/24/22 02/20/22 History (Stool Softener) trazodone 50 mg tablet 50 mg PO DAILY 02/24/22 02/24/22 02/22/22 History Allergies Allergy/AdvReac Type Severity Reaction Status Date / Time azithromycin AdvReac vomiting Verified 02/20/22 15:15 cefprozil [From Cefzil] AdvReac rash and Verified 02/20/22 15:15 hives Sulfa (Sulfonamide AdvReac unknown Verified 02/20/22 15:15 Antibiotics) Current Medications Generic Name Dose Route Start Last Admin Trade Name Jeff PRN Reason Stop Dose Admin Sodium Chloride 1,000 mls @ 30 mls/hr 02/24/22 06:00 02/24/22 06:28 Sodium Chloride 0.9% IV 02/25/22 05:59 30 mls/hr .Q24H ROBBI Administration PFSH Anesthesia Medical History Abscess Anxiety Depression Surgical History Hx of section 09/20/2014: Performed in [facility]. Operative report---> primary low transverse delivery with double layer closure and no extensions. Hx of cholecystectomy Hx of laparoscopy Done on 09/10/[address] Cook at [facility] for pelvic pain--laparoscopy with lysis of adheions and Nexplanon removal. At time of surgery a single area of omental adhesions onto the bladder was noted which was taken down. No sign of endometriosis.. Hx of tonsillectomy Family History Father Hypertension Family/Other Ovarian cancer maternal great grandmother, maternal grandmother and paternal grandmother. She states that all of these women have had hysterectomies however she is not sure about the diagnosis of ovarian cancer... Diabetes Paternal Aunt Thyroid disease Paternal aunt Mother Hypertension Cervical cancer dx --unknown age Grandmother Stroke Paternal Colon cancer Paternal--dx age unknown Ovarian cancer Maternal--dx age unknown Grandfather Stroke Paternal Denies family history of Heart disease Hyperlipidemia Breast cancer Uterine cancer Female Reproductive History Date of last menstrual period: 02/15/22 Spontaneous abortions: No Data Anesthesia : 02/24/22 06:24 02/24/22 06:24 Cardiac Studies: No Data to Display
[2022-02-24 06:43] LABS: Basophils # 0.1 10^3/uL (0.0-0.1); Basophils % 0.7 %; Eosinophils # 0.1 10^3/uL (0.0-0.8); Eosinophils % 0.9 %; Hematocrit 40.8 % (37.0-47.0); Hemoglobin 13.4 g/dL (11.5-15.3); Lymphocytes # 4.4 10^3/uL (0.8-4.8); Lymphocytes % 45.8 %; Mean Corpuscular HGB Conc 32.8 g/dL (30.0-36.0); Mean Corpuscular Hemoglobin 26.4 pg (28.0-34.0); Mean Corpuscular Volume 80.3 fl (81-99); Mean Platelet Volume 9.3 fL (7.4-10.4); Monocytes # 0.6 10^3/uL (0.2-0.9); Monocytes % 5.9 %; Neutrophils % 46.4 %; Nucleated Red Blood Cells % 0 %; Platelet Count 549 10^3/cmm (130-400); Red Blood Count 5.08 10^6/uL (4.1-5.3); Red Cell Distribution Width 12.8 % (12.1-15.1); White Blood Count 9.7 10^3/uL (4.0-10.0)
[2022-02-24 06:59] LABS: Anion Gap 19.5 (5-19); Blood Urea Nitrogen 6 mg/dL (6-20); Calcium 9.5 mg/dL (8.5-10.5); Carbon Dioxide 19 mmol/L (22-29); Chloride 103 mmol/L (98-107); Glomerular Filtration Rate 144.9 mL/min (90-130); Glucose 85 mg/dL (65-115); Osmolality Calculated 283 mOsm/kg (285-295); Potassium 3.5 mmol/L (3.5-5.1); Sodium 138 mmol/L (136-145)
[2022-02-24] MEDS: midazolam 1 mg/mL INJ 2 mL 2 MG IVP (07:03)
--- NOTE | 2022-02-24 07:07 | W.PM.OPSUD ---
Surgery/Procedure H&P Update DATE OF PROCEDURE: February 24, 2022 DATE H&P PERFORMED: 01/26/22 H&P UPDATE INFORMATION: I have reviewed H&P completed within last 30 days, I have examined patient prior to procedure and No changes to prior documentation PREOP DIAGNOSIS: high grade dysplasia of cervix, chronic pelvic pain PLANNED PROCEDURE: Operation Date: 02/24/22 07:00 Proposed Procedures p Laparoscopic assisted vaginal hysterectomy, bilateral salpingectomy 95772,N87.1(Not Applicable) - Shanna Haq MD s Laparoscopic Salpingectomy(Not Applicable) - Shanna Haq MD Related Problem List Diagnoses (1) CHEYANNE II (cervical intraepithelial neoplasia II): (2) Pelvic pain:
[2022-02-24] MEDS: phenazopyridine 100 mg Tablet 200 MG PO (07:10)
[2022-02-24] MEDS: gabapentin 300 mg Capsule PO (07:10)
[2022-02-24] MEDS: CELEcoxib 200 mg Capsule 400 MG PO (07:10)
[2022-02-24] MEDS: metroNIDAZOLE IV 500 MG/100 ML PREMIX 100 MG IV (07:14)
[2022-02-24] MEDS: levofloxacin-dextrose 5 % 500 MG/100 ML PREMIX 100 MG IV (07:40)
[2022-02-24] MEDS: vasopressin 20 unit/mL INJ INJECTION (08:00)
--- NOTE | 2022-02-24 09:20 | P.OP_ITS ---
Operative Report Date of procedure: February 24, 2022 Pre-op diagnosis: Preop Diagnosis high grade dysplasia of cervix, chronic pelvic pain Post-op diagnosis: same Post-op findings: 9 week sized uterus, normal appearing tubes and ovaries Procedure done: LAVH, bilateral salpingectomy, cystoscopy Specimens removed/disposition: uterus and bilateral fallopian tubes to pathology Surgeon: Shanna Haq Anesthesia: General Estimated blood loss (mL): 275 IV fluids (mL): 1,300 Urine output (mL): 100 Complications: none Findings: 9 week sized uterus, normal appearing tubes and ovaries Condition: stable Disposition: PACU Procedure: The patient was taken to the operating room where general anesthesia was administered and found to be adequate. She was prepped and draped in the normal sterile fashion in the dorsal lithotomy position in [facility]. A Alvarez catheter was placed. A weighted speculum was placed into the vagina and the anterior lip of the cervix was grasped with a single tooth tenaculum. The Zumi uterine manipulator was placed. The weighted speculum was removed. The gloves were changed and attention was turned to the abdomen. A 5 mm supraumbilical incision was made. Using a 5 mm port with the camera, the port was placed into the abdomen. The abdomen was insufflated. Two low, lateral 5 mm ports were placed on the left and right under direct visualization from the camera. The right tube was grasped and elevated. Using the laparoscopic cautery, the mesosalpinx was divided between the ovary and tube. The tube was removed. This was performed the same way on the left. The uteroovarian ligaments as well as the round ligaments were ligated. Attention was then turned to the vaginal portion of the procedure. The weighted speculum was placed into the vagina. The zumi manipulator was removed. The single tooth tenaculum was removed and replaced with the yifan's tenaculum. 9 mL of dilute Pitressin was injected at the vesicovaginal junction. A circumferential incision was made at the vesicovaginal junction and the vaginal mucosa reflected cephalad. The posterior peritoneum was entered sharply with the Metzenbaum scissors and the long weighted speculum replaced. Using the Kusum clamps the uterosacral ligaments were clamped cut and suture-ligated. The anterior peritoneum was entered sharply with the metzenbaum scissors. Then sequentially the uterine arteries and cardinal ligaments were clamped cut and suture-ligated. A single-tooth tenaculum was used to deliver the uterus. The remaining segement of the utero-ovarian ligaments were clamped cut and suture- ligated bilaterally and the specimen was removed. There was good hemostasis with only mild bleeding from the cuff. The peritoneum was closed with a pursestring using 2-0 Vicryl. The vaginal cuff was closed with 0 Vicryl in a running locked pattern incorporating the uterosacral ligaments into the lateral aspects of the vaginal cuff. The Alvarez catheter was removed and the cystoscope advanced into the bladder. The patient was given pyridium and bilateral spill was noted. There were no injuries or deficits noted in the bladder. The cystoscope was removed and the Alvarez was replaced. Vaginal packing was placed for good hemostasis. The gloves and gowns were changed and attention was turned to the abdomen. The ports were closed with 2-0 monocryl with skin glue. The patient tolerated the procedure well. Sponge lap and needle counts were correct x3. She was taken to the recovery room in stable condition.
--- NOTE | 2022-02-24 09:20 | W.PM.OPSUD ---
Surgery/Procedure H&P Update DATE OF PROCEDURE: February 24, 2022 DATE H&P PERFORMED: 02/16/22 PREOP DIAGNOSIS: high grade dysplasia of cervix, chronic pelvic pain PLANNED PROCEDURE: Operation Date: 02/24/22 07:00 Proposed Procedures p Laparoscopic assisted vaginal hysterectomy, bilateral salpingectomy 06998,N87.1(Not Applicable) - Shanna Haq MD s Laparoscopic Salpingectomy(Not Applicable) - Shanna Haq MD
[2022-02-24] MEDS: fentaNYL 50 mcg/mL INJ 2mL IVP ×2 (09:35→09:47)
[2022-02-24] MEDS: HYDROmorphone 1 mg/mL INJ 1 mL 0.5 MG IVP ×2 (09:55→10:08)
[2022-02-24] MEDS: dextrose 5%-lactated ringers 1,000 ML 125 ML IV ×2 (10:55→17:17)
[2022-02-24] MEDS: ondansetron 2 mg/ML SDV 2 mL 4 MG IVP ×2 (10:55→17:08)
[2022-02-24] MEDS: HYDROcodone-acetaminophen 5-325 mg Tablet PO ×2 (12:13→18:16)
[2022-02-24] MEDS: metoclopramide 5 mg/mL SDV 2 mL 10 MG IVP (12:26)
--- NOTE | 2022-02-24 14:37 | ANE.PACU2 ---
Inpatient post-anesthesia follow up: Airway intact: Yes Vital signs: Temperature 97.8 F Pulse Rate 91 Respiratory Rate 16 Blood Pressure 90/65 Pulse Oximetry 96 Oxygen Delivery Me thod Room Air Oxygen Flow Rate Fraction of Inspir ed Oxygen Hydration adequate: Yes Nausea and vomiting: No Pain level: 1 Mental status: Baseline
[2022-02-24] MEDS: lactated ringers 1,000 ML 999 ML IV (14:49)
[2022-02-24] MEDS: simethicone 80 mg Chew PO ×2 (15:49→23:04)
[2022-02-25] MEDS: trazodone 50 mg Tablet PO (00:04)
[2022-02-25] MEDS: HYDROcodone-acetaminophen 5-325 mg Tablet PO ×3 (00:05→09:34)
[2022-02-25 00:48] VITALS: RESP 16; O2SAT 100
[2022-02-25] MEDS: HYDROmorphone 1 mg/mL INJ 1 mL 1.5 MG IVP (00:48)
--- NOTE | 2022-02-25 04:58 | PC.NURSE ---
Addendum entered by Lucy Liao RN 02/25/22 05:00: at 0005 pt was then educated to report any bleeding, or gushing coming from her vagina. Original Note: at 0005, pt went to bathroom and nurse was called into the bathroom to report the packing was in her disposable pad, packing was minimally saturated and discarded.
[2022-02-25 05:20] VITALS: BP 108/67; PULSE 82; PULSE 87; TEMP 36.7; O2SAT 98; O2SAT 99
[2022-02-25 06:20] LABS: Hematocrit 29.7 % (37.0-47.0); Hemoglobin 9.8 g/dL (11.5-15.3); Mean Corpuscular Hemoglobin 26.7 pg (28.0-34.0); Mean Corpuscular Volume 80.9 fl (81-99); Mean Platelet Volume 9.6 fL (7.4-10.4); Platelet Count 466 10^3/cmm (130-400); Red Blood Count 3.67 10^6/uL (4.1-5.3)
[2022-02-25] MEDS: simethicone 80 mg Chew PO (06:26)
--- NOTE | 2022-02-25 08:35 | PM.DCS ---
Discharge Providers Date of Admission: 02/24/22 09:21 Date of Discharge: February 25, 2022 Attending Provider at Admission: Shanna Haq MD Attending Provider at Discharge: Shanna Haq MD Primary Care Provider: Ibis Cameron DO Diagnoses at Discharge Discharge Diagnosis (1) CHEYANNE II (cervical intraepithelial neoplasia II): Status: Acute (2) Pelvic pain: Status: Acute Hospital Course Hospital Course The patient was admitted for surgery. She did well postoperatively and was ready for discharge on day #1 Physical Exam Narrative: has had some pain control issues overnight. complains of lots of gas. Const: COMMON NORMALS: no acute distress, average body habitus, patient oriented x3, no limitations, healthy appearing, alert and well nourished GENERAL APPEARANCE: cooperative, comfortable, well kempt and well developed ORIENTATION/CONSCIOUSNESS: Yes awake, Yes oriented to person, Yes oriented to place and Yes oriented to time Resp: COMMON NORMALS: normal respiratory effort EFFORT & INSPECTION: Yes able to speak in complete sentences GI: COMMON NORMALS: Soft to palpation and non-tender PALPATION: Yes Soft to palpation Extremity: COMMON NORMALS: no calf tenderness Neuro: COMMON NORMALS: patient oriented x3 SENSORIUM/ORIENTATION: Yes alert, Yes oriented to person, Yes oriented to place and Yes oriented to time Psych: APPEARANCE: Yes well kempt Urinary Catheter Management: Alvarez: Cath Placed During This Visit: yes, but has since been removed by the nurse Reason for Continuing Indwelling Catheter: Decision to DC Catheter Urinary Catheter Date of Insertion: 02/24/22 Urinary Catheter Time of Insertion: 07:46 Date Urinary Catheter Removed: 02/25/22 Time Urinary Catheter Discontinued: 05:45 Discharge Data Studies Completed and Pending Pending at discharge Category Date Time Status ES surgery / GI images Routine Exams 02/24/22 06:38 Taken Urine Culture Routine Lab 02/24/22 07:49 Received Pathology: Surgical [PTH] Routine Pth 02/24/22 09:29 Received Laboratory Results WBC 15.0 10^3/uL (4.0-10.0) H 02/25/22 06:07 RBC 3.67 10^6/uL (4.1-5.3) L 02/25/22 06:07 Hgb 9.8 g/dL (11.5-15.3) L 02/25/22 06:07 Hct 29.7 % (37.0-47.0) L 02/25/22 06:07 MCV 80.9 fl (81-99) L 02/25/22 06:07 MCH 26.7 pg (28.0-34.0) L 02/25/22 06:07 MCHC 33.0 g/dL (30.0-36.0) 02/25/22 06:07 RDW 13.0 % (12.1-15.1) 02/25/22 06:07 Plt Count 466 10^3/cmm (130-400) H 02/25/22 06:07 MPV 9.6 fL (7.4-10.4) 02/25/22 06:07 Neut % (Auto) 46.4 % 02/24/22 06:24 Lymph % (Auto) 45.8 % 02/24/22 06:24 [place] % (Auto) 5.9 % 02/24/22 06:24 Eos % (Auto) 0.9 % 02/24/22 06:24 Baso % (Auto) 0.7 % 02/24/22 06:24 Neut # (Auto) 4.50 10^3/uL (1.8-7.7) 02/24/22 06:24 Lymph # (Auto) 4.4 10^3/uL (0.8-4.8) 02/24/22 06:24 [place] # (Auto) 0.6 10^3/uL (0.2-0.9) 02/24/22 06:24 Eos # (Auto) 0.1 10^3/uL (0.0-0.8) 02/24/22 06:24 Baso # (Auto) 0.1 10^3/uL (0.0-0.1) 02/24/22 06:24 Nucleated RBC % (auto) 0 % 02/24/22 06:24 Nucleated RBCs # 0.0 /100WBC 02/24/22 06:24 Sodium 138 mmol/L (136-145) 02/24/22 06:24 Potassium 3.5 mmol/L (3.5-5.1) 02/24/22 06:24 Chloride 103 mmol/L (98-107) 02/24/22 06:24 Carbon Dioxide 19 mmol/L (22-29) L 02/24/22 06:24 Anion Gap 19.5 (5-19) H 02/24/22 06:24 BUN 6 mg/dL (6-20) 02/24/22 06:24 Creatinine 0.5 mg/dL (0.5-0.9) 02/24/22 06:24 GFR Calculation 144.9 mL/min (90-130) H 02/24/22 06:24 Glucose 85 mg/dL (65-115) 02/24/22 06:24 Calculated Osmolality 283 mOsm/kg (285-295) L 02/24/22 06:24 Calcium 9.5 mg/dL (8.5-10.5) 02/24/22 06:24 Urine HCG, Qual Negative (Negative) 02/24/22 05:48 Blood Type O Positive 02/24/22 06:24 Rho(D) Type Positive 02/24/22 06:24 Antibody Screen Negative 02/24/22 06:24 Vitals Last Vital Signs Temp 98.1 F 02/25/22 05:20 Pulse 87 02/25/22 05:20 Resp 16 02/25/22 00:48 BP 108/67 02/25/22 05:20 Pulse Ox 99 02/25/22 05:20 Discharge Plan Discharge Patient Disposition: Home Condition: Stable Prescriptions: New ibuprofen 800 mg Tablet 800 mg PO Q8H Qty: 30 0RF docusate sodium 100 mg Capsule 100 mg PO BID Qty: 60 0RF oxycodone-acetaminophen 5-325 mg tablet 1 tab PO Q6H Qty: 30 0RF Continued acetaminophen [Tylenol] 325 mg Tablet 325 - 650 mg PO QID PRN (Reason: Pain) 0RF triamcinolone acetonide [Nasacort] 55 mcg Aerosol,[place] 2 spray INTRANASAL DAILY 0RF loratadine [Claritin] 10 mg Tablet 10 mg PO DAILY 0RF trazodone 50 mg Tablet 50 mg PO DAILY 0RF Stool Softener 50 mg Capsule 50 mg PO DAILY 0RF Discharge Orders: Discharge Order (Routine); Ordered 02/25/22 Ordered By: Shanna Haq Patient Instructions: Opioid Safety Discharge Attestations Time Spent in Discharge Care*: less than 30 min Quality Metrics Clinical Quality Measures [ No reported AMI, CVA or VTE this stay] Coding Level of Care Code Acute Chg FW DC note Exam Expanded Problem Focused Diagnoses CHEYANNE II (cervical intraepithelial neoplasia II) N87.1 Pelvic pain R10.2
[2022-02-25] MEDS: docusate sodium 100 mg Capsule PO (09:34)
[2022-02-25] MEDS: ibuprofen 800 mg tablet PO (09:34)
[2022-02-25 10:55] VITALS: BP 117/77; PULSE 75; RESP 16; TEMP 36.9
[2022-02-25 11:26] VITALS: BP 117/77; PULSE 75; RESP 16; TEMP 36.9
== END 2022-02-25 11:00 | disposition home or self-care (01) ==
LOC: OBGYN 09:22
PROVIDERS: Admitting Provider Obstetrics & Gynecology; PCP Family Medicine; Visit Provider Obstetrics & Gynecology
PROC: 0UT9FZZ Resection of Uterus, Via Natural or Artificial Opening With Percutaneous Endoscopic Assistance (ICD-10-PCS; CPT 58552; principal; 2022-02-24 07:00)
PROC: (CPT 58661; 2022-02-24 07:00)
DX: N87.1 Moderate cervical dysplasia (principal); R10.2 Pelvic and perineal pain; G89.29 Other chronic pain
CPT/HCPCS: 58552; 36415; 80048; 81025; 84703; 85025; 85027; 86850; 86900; 87086; 88307; G0378; J1100; J1170; J1885; J1940; J1956; J2250; J2405; J2704; J2710; J2765; J3010; J3490; J7030; S0030

== ENCOUNTER 2022-02-28 11:20 | Observation (INO) | payer BC, MEDICAID, SELFPAY ==
[2022-02-28] VITALS (13 sets, daily range): BP systolic 108–131; BP diastolic 70–89; PULSE 82–109; RESP 16–20; TEMP 36.9–37.6; O2SAT 99–100
--- NOTE | 2022-02-28 12:26 | ED_ITS ---
HPI - General Adult General: Chief complaint: Abdominal Pain Stated complaint: abdomen pain post op Time Seen by Provider: 02/28/22 12:02 History of Present Illness: Patient is a 32-year-old female who underwent hysterectomy with Dr. 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 Patient tells me that since his surgery on 02/2022, Patient Has Been Taking Oxycodone. However Earlier Today, Patient Reports Significant Diffuse Abdominal Pain with Nausea and Vomiting since 3:00 This Morning despite Taking Pain Medicine. Patient Denies Any Fever, but Reports Diarrhea. Patient Denies Any Melena Hematochezia. Patient reports diarrhea for 1 day. Patient's not currently on any antibiotics. Onset: 02/24/2022 Duration:ongoing Location:home Severity:mild Associated symptoms: Reports nausea and vomiting; Deny chest pain, dyspnea, rash or palpitations Review of Systems Const: Denies: fever(s) or chills Eyes: Denies: change in vision ENMT: Denies: mouth pain Card: Denies: chest pain or palpitations Resp: Denies: dyspnea or non-productive cough GI: Reports: abdominal pain, nausea, vomiting and diarrhea : Denies: dysuria Musc: Denies: extremity pain Skin/Breast: Denies: rash or new lesions Neuro: Denies: weakness in extremities Psych: Reports: other (Normal mood) Gald[place]/Lymph: Denies: easy bruising PFSH ED PFSH: Medical History Abscess Anxiety Depression Surgical History H/O: hysterectomy Hx of section 09/20/2014: Performed in [facility]. Operative report---> primary low transverse delivery with double layer closure and no extensions. Hx of cholecystectomy Hx of laparoscopy Done on 09/10/[address] Cook at [facility] for pelvic pain--laparoscopy with lysis of adheions and Nexplanon removal. At time of surgery a single area of omental adhesions onto the bladder was noted which was taken down. No sign of endometriosis.. Hx of tonsillectomy Family History Father Hypertension Family/Other Ovarian cancer maternal great grandmother, maternal grandmother and paternal grandmother. She states that all of these women have had hysterectomies however she is not sure about the diagnosis of ovarian cancer... Diabetes Paternal Aunt Thyroid disease Paternal aunt Mother Hypertension Cervical cancer dx --unknown age Grandmother Stroke Paternal Colon cancer Paternal--dx age unknown Ovarian cancer Maternal--dx age unknown Grandfather Stroke Paternal Denies family history of Heart disease Hyperlipidemia Breast cancer Uterine cancer Female Reproductive History: Spontaneous abortions: No Physical Exam Const: COMMON NORMALS: alert HENMT: COMMON NORMALS: atraumatic HEAD & SCALP: atraumatic MOUTH: moist mucous membranes not abnormal Eye: COMMON NORMALS: EOMs intact bilaterally and conjunctivae normal CONJUNCTIVA: Yes conjunctivae normal Neck/C-Spine: COMMON NORMALS: full ROM and supple Resp: COMMON NORMALS: normal respiratory effort and clear to auscultation bilaterally AUSCULTATION: clear to auscultation bilaterally Cardio: COMMON NORMALS: regular rate RATE: regular rate GI: COMMON NORMALS: Soft to palpation PALPATION: Yes Soft to palpation OTHER: +mild diffuse abd TTP. NO guarding rebound, guarding, rigidity. No CVA tenderness to percussion. Neg Syed/Neg McBurney's point tenderness, no suprab upic tenderness to palpation. +laproscopic scars appear to dry/clean/intact Extremity: COMMON NORMALS: full ROM Neuro: SENSORIUM/ORIENTATION: Yes alert MOTOR EXAM: No Abnormal motor strength present and Other motor observations present (no focal motor deficits) Psych: COMMON NORMALS: speech normal SPEECH: Yes normal speech MOOD & AFFECT: Yes euthymic mood Course Vital Signs: Vital signs: Vital Signs Temperature 98.6 F 02/28/22 17:00 Pulse Rate 82 02/28/22 17:00 Respiratory Rate 18 02/28/22 17:01 Blood Pressure 110/82 02/28/22 17:00 Pulse Oximetry 100 02/28/22 17:01 MDM - General Adult Medical Decision Making 32-year-old female with history of recent laparoscopic hysterectomy for cervical intraepithelial neoplasm presenting to the emergency room with generalized abdominal pain nausea and vomiting and chills. Patient on physical exam is noted to have bruises on the abdominal wall. Otherwise laparoscopic scar appears to be dry clean intact. Patient has diffuse abdominal tenderness palpation without any guarding or rebound tenderness. CT abd+pelvis showed an area of hematoma without any active extravasation. Patient is noted to have hemoglobin 8.8 initially decreased from 9.8 on 02/25. I discussed case with Dr. Haq who tells me the patient is stable for outpatient follow-up. Repeat H&H shows hemoglobin 8.6 in the emergency room. However patient continues to have significant abdominal pain requiring multiple doses of pain medication. Discussed case with Dr. Barnes who agrees with observation overnight. Disposition: admission Lab Data : 02/28/22 16:59 02/28/22 12:35 Radiology Impressions Abdomen/Pelvis CT 02/28/22 13:17 IMPRESSION: 1. Postoperative changes associated with recent hysterectomy. 2. Small to moderate amount of hyperdense free pelvic fluid, likely blood products. No convincing active extravasation of contrast. Correlate with hemoglobin and hematocrit levels. 3. Additional findings, as above. Laboratory Results WBC 6.5 10^3/uL (4.0-10.0) 02/28/22 16:59 Corrected WBC Cancelled 02/28/22 12:35 RBC 3.23 10^6/uL (4.1-5.3) L 02/28/22 16:59 Hgb 8.6 g/dL (11.5-15.3) L 02/28/22 16:59 Hct 29.6 % (37.0-47.0) L 02/28/22 16:59 MCV 91.6 fl (81-99) D 02/28/22 16:59 MCH 26.6 pg (28.0-34.0) L 02/28/22 16:59 MCHC 29.1 g/dL (30.0-36.0) L D 02/28/22 16:59 RDW 13.6 % (12.1-15.1) 02/28/22 16:59 Plt Count 429 10^3/cmm (130-400) H 02/28/22 16:59 MPV 9.5 fL (7.4-10.4) 02/28/22 16:59 Gran % Cancelled 02/28/22 12:35 Neut % (Auto) 48.7 % 02/28/22 16:59 Lymph % (Auto) 39.8 % 02/28/22 16:59 [place] % (Auto) 7.2 % 02/28/22 16:59 Eos % (Auto) 2.9 % 02/28/22 16:59 Baso % (Auto) 0.8 % 02/28/22 16:59 Neut # (Auto) 3.19 10^3/uL (1.8-7.7) 02/28/22 16:59 Lymph # (Auto) 2.6 10^3/uL (0.8-4.8) 02/28/22 16:59 [place] # (Auto) 0.5 10^3/uL (0.2-0.9) 02/28/22 16:59 Eos # (Auto) 0.2 10^3/uL (0.0-0.8) 02/28/22 16:59 Baso # (Auto) 0.1 10^3/uL (0.0-0.1) 02/28/22 16:59 Absolute Gran (auto) Cancelled 02/28/22 12:35 Nucleated RBC % (auto) 0 % 02/28/22 16:59 Nucleated RBCs # 0.0 /100WBC 02/28/22 16:59 Sodium 140 mmol/L (136-145) 02/28/22 12:35 Potassium 3.5 mmol/L (3.5-5.1) 02/28/22 12:35 Chloride 105 mmol/L (98-107) 02/28/22 12:35 Carbon Dioxide 21 mmol/L (22-29) L 02/28/22 12:35 Anion Gap 17.5 (5-19) 02/28/22 12:35 BUN 6 mg/dL (6-20) 02/28/22 12:35 Creatinine 0.4 mg/dL (0.5-0.9) L 02/28/22 12:35 GFR Calculation 187.4 mL/min (90-130) H 02/28/22 12:35 Glucose 92 mg/dL (65-115) 02/28/22 12:35 Calculated Osmolality 287 mOsm/kg (285-295) 02/28/22 12:35 Calcium 9.2 mg/dL (8.5-10.5) 02/28/22 12:35 Total Bilirubin 0.4 mg/dL (0.15-1.2) 02/28/22 12:35 AST 21 U/L (0-32) 02/28/22 12:35 ALT 18 U/L (0-33) 02/28/22 12:35 Alkaline Phosphatase 69 IU/L (35-105) 02/28/22 12:35 Total Protein 7.6 g/dL (6.6-8.7) 02/28/22 12:35 Albumin 4.3 g/dL (3.5-5.2) 02/28/22 12:35 Globulin 3.3 g/dL (1.3-4.6) 02/28/22 12:35 Lipase 12 U/L (13-60) L 02/28/22 12:35 Urine Color Yellow (Yellow) 02/28/22 11:39 Urine Appearance Clear (CLEAR) 02/28/22 11:39 Urine pH 8 (5-7) H 02/28/22 11:39 Ur Specific [place] 1.005 (1.005-1.030) 02/28/22 11:39 Urine Protein Neg (Negative) 02/28/22 11:39 Urine Glucose (UA) Norm (Normal) 02/28/22 11:39 Urine Ketones Negative (Negative) 02/28/22 11:39 Urine Blood Trace (Negative) H 02/28/22 11:39 Urine Nitrate Negative (Negative) 02/28/22 11:39 Urine Bilirubin Neg (Negative) 02/28/22 11:39 Prot Sulfosalicylic Acd Negative (Negative) 02/28/22 11:39 Urine Urobilinogen Norm mg/dL (Negative) 02/28/22 11:39 Ur Leukocyte Esterase Negative (Negative) 02/28/22 11:39 Urine RBC 0-4 /hpf (0-2) H 02/28/22 11:39 Urine WBC 0-4 /hpf (0-5) H 02/28/22 11:39 Ur Squamous Epith Cells 0-4 /hpf (0-5) H 02/28/22 11:39 Amorphous Sediment Not Reportable 02/28/22 11:39 Urine Bacteria Trace /hpf (NONE) 02/28/22 11:39 Urine Mucus 1+ /hpf 02/28/22 11:39 Imaging Data Other Imaging: Radiologist's impression: [address] [place] [id number] CT Scan Report Signed Patient: My Ruiz Unit #: [id number] : 1990 [id number] Age/Sex: 32 / F ADM Date: 02/28/22 Loc: ER Room/Bed: Attending Dr: Ordering Provider/Ordering MD: Anibal Agosto MD Date of Service: 02/28/22 Procedure(s): CT abdomen pelvis w con* [id number] Accession Number(s): [id number] Report Number: [id number] PROCEDURE INFORMATION: Exam: CT Abdomen And Pelvis With Contrast Exam date and time: 02/28/2022 1:51 PM Age: 32 years old Clinical indication: Abdominal pain; Generalized; Prior surgery; Surgery date: 3-7 days post-operative; Surgery type: Hyster; Additional info: Abd pain TECHNIQUE: Imaging protocol: Computed tomography of the abdomen and pelvis with contrast. Axial, coronal and sagittal reformatted images were created and reviewed. Radiation optimization: All CT scans at this facility use at least one of these dose optimization techniques: automated exposure control; mA and/or kV adjustment per patient size (includes targeted exams where dose is matched to clinical indication); or iterative reconstruction. Contrast material: OMNIPAQUE 350; Contrast volume: 95 ml; Contrast route: INTRAVENOUS (IV);? COMPARISON: CT abdomen pelvis w con* [id number] 05/27/2021 12:46 PM RADIATION DOSE METRICS: Total DLP (mGy-cm): 938.59 FINDINGS: Liver: Mild hepatomegaly. 3 mm low-density lesion in the hepatic dome, too small to characterize. Gallbladder and bile ducts: Status post cholecystectomy. No biliary ductal dilatation. Pancreas: Unremarkable. Spleen: Unremarkable. Adrenal glands: Normal. No mass. Kidneys and ureters: No mass. No radiodense calculi. No hydronephrosis. Stomach and bowel: No bowel wall thickening. No obstruction. No pneumatosis. Appendix: Normal. Intraperitoneal space: Small to moderate amount of hyperdense free pelvic fluid, likely blood products. No convincing active extravasation of contrast. No organized collection. Scattered foci of free intraperitoneal air, consistent with recent surgery. Vasculature: Unremarkable. No aneurysm. Lymph nodes: No pathologically enlarged lymph nodes. Urinary bladder: Unremarkable as visualized. Reproductive: Status post hysterectomy. Bones/joints: No acute osseous abnormality. Soft tissues: Postoperative changes in the anterior abdominal wall. CT/CT abdomen pelvis w con* [id number] IMPRESSION: 1. Postoperative changes associated with recent hysterectomy. 2. Small to moderate amount of hyperdense free pelvic fluid, likely blood products. No convincing active extravasation of contrast. Correlate with hemoglobin and hematocrit levels. 3. Additional findings, as above. ? Dictated By: Mateus Lawton MD Signed By: Mateus Lawton MD Signed Date/Time: 02/28/22 1452 DD/ 1351 Discharge Plan Discharge Patient Disposition: Admitted As Inpatient Clinical Impression: Abdominal pain, History of hysterectomy Condition: Stable Discharge Diet: Advance as tolerated Discharge Activity: Increase activity as tolerated Coding Level of Care Code ED Merchandise Collector for Chg Fwd Exam Comprehensive
[2022-02-28] MEDS: morphine 4 mg/mL SDV 1 mL 2 MG IVP (12:30)
[2022-02-28] MEDS: sodium chloride 0.9% 1,000 ML 999 ML IV (12:31)
[2022-02-28 12:59] LABS: Alanine Aminotransferase 18 U/L (0-33); Albumin Level 4.3 g/dL (3.5-5.2); Alkaline Phosphatase 69 IU/L (35-105); Blood Urea Nitrogen 6 mg/dL (6-20); Calcium 9.2 mg/dL (8.5-10.5); Carbon Dioxide 21 mmol/L (22-29); Chloride 105 mmol/L (98-107); Globulin 3.3 g/dL (1.3-4.6); Glomerular Filtration Rate 187.4 mL/min (90-130); Glucose 92 mg/dL (65-115); Lipase 12 U/L (13-60); Osmolality Calculated 287 mOsm/kg (285-295); Sodium 140 mmol/L (136-145); Total Bilirubin 0.4 mg/dL (0.15-1.2); Total Protein 7.6 g/dL (6.6-8.7)
[2022-02-28 13:12] LABS: Basophils # 0.1 10^3/uL (0.0-0.1); Basophils % 0.8 %; Eosinophils # 0.3 10^3/uL (0.0-0.8); Eosinophils % 3.9 %; Hematocrit 28.5 % (37.0-47.0); Hemoglobin 8.8 g/dL (11.5-15.3); Lymphocytes # 1.9 10^3/uL (0.8-4.8); Lymphocytes % 28.9 %; Mean Corpuscular HGB Conc 30.9 g/dL (30.0-36.0); Mean Corpuscular Hemoglobin 26.4 pg (28.0-34.0); Mean Corpuscular Volume 85.6 fl (81-99); Mean Platelet Volume 8.7 fL (7.4-10.4); Monocytes # 0.4 10^3/uL (0.2-0.9); Monocytes % 6.2 %; Neutrophils # 3.93 10^3/uL (1.8-7.7); Neutrophils % 59.6 %; Nucleated Red Blood Cells % 0 %; Platelet Count 407 10^3/cmm (130-400); Red Blood Count 3.33 10^6/uL (4.1-5.3); Red Cell Distribution Width 13.7 % (12.1-15.1); White Blood Count 6.6 10^3/uL (4.0-10.0)
[2022-02-28 13:13] LABS: Anion Gap 17.5 (5-19); Aspartate Amino Transferase 21 U/L (0-32); Potassium 3.5 mmol/L (3.5-5.1)
[2022-02-28 13:17] LABS: Add Urine Microscopic? YES; Bilirubin Urine Neg (Negative); Blood Urine Trace (Negative); Glucose Urine UA Norm (Normal); Ketones Urine Negative (Negative); Leukocyte Esterase Urine Negative (Negative); Nitrate Urine Negative (Negative); Protein Urine Neg (Negative); Specific Gravity, Urine 1.005 (1.005-1.030); Sulfosalicylic Acid Urine Negative (Negative); Urine Appearance Clear (CLEAR); Urine Color Yellow (Yellow); Urobilinogen Urine Norm (Negative); pH Urine 8 (5-7)
--- NOTE | 2022-02-28 13:17 | CTR_ITS ---
PROCEDURE INFORMATION: Exam: CT Abdomen And Pelvis With Contrast Exam date and time: 02/28/2022 1:51 PM Age: 32 years old Clinical indication: Abdominal pain; Generalized; Prior surgery; Surgery date: 3-7 days post-operative; Surgery type: Hyster; Additional info: Abd pain TECHNIQUE: Imaging protocol: Computed tomography of the abdomen and pelvis with contrast. Axial, coronal and sagittal reformatted images were created and reviewed. Radiation optimization: All CT scans at this facility use at least one of these dose optimization techniques: automated exposure control; mA and/or kV adjustment per patient size (includes targeted exams where dose is matched to clinical indication); or iterative reconstruction. Contrast material: OMNIPAQUE 350; Contrast volume: 95 ml; Contrast route: INTRAVENOUS (IV); COMPARISON: CT abdomen pelvis w con* [id number] 05/27/2021 12:46 PM RADIATION DOSE METRICS: Total DLP (mGy-cm): 938.59 FINDINGS: Liver: Mild hepatomegaly. 3 mm low-density lesion in the hepatic dome, too small to characterize. Gallbladder and bile ducts: Status post cholecystectomy. No biliary ductal dilatation. Pancreas: Unremarkable. Spleen: Unremarkable. Adrenal glands: Normal. No mass. Kidneys and ureters: No mass. No radiodense calculi. No hydronephrosis. Stomach and bowel: No bowel wall thickening. No obstruction. No pneumatosis. Appendix: Normal. Intraperitoneal space: Small to moderate amount of hyperdense free pelvic fluid, likely blood products. No convincing active extravasation of contrast. No organized collection. Scattered foci of free intraperitoneal air, consistent with recent surgery. Vasculature: Unremarkable. No aneurysm. Lymph nodes: No pathologically enlarged lymph nodes. Urinary bladder: Unremarkable as visualized. Reproductive: Status post hysterectomy. Bones/joints: No acute osseous abnormality. Soft tissues: Postoperative changes in the anterior abdominal wall. CT/CT abdomen pelvis w con* [id number] IMPRESSION: 1. Postoperative changes associated with recent hysterectomy. 2. Small to moderate amount of hyperdense free pelvic fluid, likely blood products. No convincing active extravasation of contrast. Correlate with hemoglobin and hematocrit levels. 3. Additional findings, as above.
[2022-02-28 13:18] LABS: Add Urine Culture? No; Bacteria Urine TRACE /hpf; Mucus Urine 1+ /hpf; RBC Urine 0-4 /hpf (0-2); Squamous Epithelial Cell Urine 0-4 /hpf (0-5); WBC Urine 0-4 /hpf (0-5)
[2022-02-28] MEDS: HYDROmorphone 1 mg/mL INJ 1 mL IVP (13:36)
[2022-02-28] MEDS: iohexol 350 mg/mL 100 mL Btl IV (13:54)
[2022-02-28] MEDS: acetaminophen 500 mg Tablet PO (15:35)
[2022-02-28] MEDS: HYDROmorphone 1 mg/mL INJ 1 mL 0.5 MG IVP (17:01)
[2022-02-28 17:25] LABS: Basophils # 0.1 10^3/uL (0.0-0.1); Basophils % 0.8 %; Eosinophils # 0.2 10^3/uL (0.0-0.8); Eosinophils % 2.9 %; Hematocrit 29.6 % (37.0-47.0); Hemoglobin 8.6 g/dL (11.5-15.3); Lymphocytes # 2.6 10^3/uL (0.8-4.8); Lymphocytes % 39.8 %; Mean Corpuscular HGB Conc 29.1 g/dL (30.0-36.0); Mean Corpuscular Hemoglobin 26.6 pg (28.0-34.0); Mean Corpuscular Volume 91.6 fl (81-99); Mean Platelet Volume 9.5 fL (7.4-10.4); Monocytes # 0.5 10^3/uL (0.2-0.9); Monocytes % 7.2 %; Neutrophils # 3.19 10^3/uL (1.8-7.7); Neutrophils % 48.7 %; Nucleated Red Blood Cells % 0 %; Platelet Count 429 10^3/cmm (130-400); Red Blood Count 3.23 10^6/uL (4.1-5.3); Red Cell Distribution Width 13.6 % (12.1-15.1); White Blood Count 6.5 10^3/uL (4.0-10.0)
[2022-02-28] MEDS: morphine 4 mg/mL SDV 1 mL IVP ×3 (18:33→23:54)
[2022-03-01] VITALS (9 sets, daily range): BP systolic 110–117; BP diastolic 69–82; PULSE 72–89; RESP 16–19; TEMP 37–37.3; O2SAT 97–99
[2022-03-01 04:00] LABS: Basophils % 0.6 %; Eosinophils # 0.3 10^3/uL (0.0-0.8); Eosinophils % 4.4 %; Hematocrit 27.8 % (37.0-47.0); Hemoglobin 8.6 g/dL (11.5-15.3); Lymphocytes # 3.2 10^3/uL (0.8-4.8); Lymphocytes % 45.1 %; Mean Corpuscular HGB Conc 30.9 g/dL (30.0-36.0); Mean Corpuscular Hemoglobin 26.4 pg (28.0-34.0); Mean Corpuscular Volume 85.3 fl (81-99); Mean Platelet Volume 9.2 fL (7.4-10.4); Monocytes # 0.6 10^3/uL (0.2-0.9); Monocytes % 7.9 %; Neutrophils # 2.91 10^3/uL (1.8-7.7); Neutrophils % 41.6 %; Nucleated Red Blood Cells % 0 %; Platelet Count 431 10^3/cmm (130-400); Red Blood Count 3.26 10^6/uL (4.1-5.3); Red Cell Distribution Width 13.4 % (12.1-15.1)
[2022-03-01] MEDS: morphine 4 mg/mL SDV 1 mL IVP ×3 (04:11→12:51)
[2022-03-01] MEDS: ondansetron 4 MG Tablet PO (04:26)
[2022-03-01 04:28] LABS: Alanine Aminotransferase 21 U/L (0-33); Albumin Level 3.9 g/dL (3.5-5.2); Alkaline Phosphatase 64 IU/L (35-105); Anion Gap 15.2 (5-19); Aspartate Amino Transferase 19 U/L (0-32); Blood Urea Nitrogen 4 mg/dL (6-20); Calcium 8.6 mg/dL (8.5-10.5); Carbon Dioxide 23 mmol/L (22-29); Chloride 103 mmol/L (98-107); Globulin 2.9 g/dL (1.3-4.6); Glomerular Filtration Rate 187.4 mL/min (90-130); Glucose 108 mg/dL (65-115); Osmolality Calculated 283 mOsm/kg (285-295); Potassium 3.2 mmol/L (3.5-5.1); Sodium 138 mmol/L (136-145); Total Bilirubin 0.4 mg/dL (0.15-1.2); Total Protein 6.8 g/dL (6.6-8.7)
--- NOTE | 2022-03-01 14:31 | PM.SDS ---
Short Stay Summary Providers Date of Admit/Discharge: 03/01/22 Attending Provider: iRco Barnes MD Primary Care Provider: Ibis Cameron DO Chief Complaint: abdomen pain post op HPI History of Present Illness My Ruiz is a 32 year old female who underwent laparoscopic-assisted vaginal hysterectomy with Dr. Haq on 02/24/2022 for cervical intraepithelial neoplasm presented to the emergency room with complaints of abdominal pain, chills, nausea and vomiting. Review of Systems Const: Denies: fever(s) or chills Eyes: Denies: change in vision ENMT: Denies: mouth pain Card: Denies: chest pain or palpitations Resp: Denies: dyspnea or non-productive cough GI: Reports: abdominal pain, nausea, vomiting and diarrhea : Denies: dysuria Musc: Denies: extremity pain Skin/Breast: Denies: rash or new lesions Neuro: Denies: weakness in extremities Psych: Reports: other (Normal mood) [place]/Lymph: Denies: easy bruising Home Meds/Allergies Home Medications and Allergies Home Medications Medication Instructions Recorded Confirmed Type acetaminophen 325 mg tablet 325 - 650 mg PO QID PRN 11/15/20 02/28/22 History (Tylenol) loratadine 10 mg tablet (Claritin) 10 mg PO DAILY 11/15/20 02/28/22 History triamcinolone acetonide 55 mcg 2 spray INTRANASAL DAILY 11/15/20 02/28/22 History nasal spray aerosol (Nasacort) trazodone 50 mg tablet 50 mg PO DAILY 02/24/22 02/28/22 History bisacodyl 5 mg tablet,delayed 5 mg PO DAILY PRN 02/28/22 02/28/22 History release (Dulcolax (bisacodyl)) simethicone 125 mg chewable tablet 250 mg PO TID PRN 02/28/22 02/28/22 History (Gas-X Extra Strength) Allergies Allergy/AdvReac Type Severity Reaction Status Date / Time azithromycin AdvReac vomiting Verified 02/28/22 11:37 cefprozil [From Cefzil] AdvReac rash and Verified 02/28/22 11:37 hives Sulfa (Sulfonamide AdvReac unknown Verified 02/28/22 11:37 Antibiotics) PFSH Acute PFSH: Medical History Abscess Anxiety Depression Surgical History H/O: hysterectomy Hx of section 09/20/2014: Performed in [facility]. Operative report---> primary low transverse delivery with double layer closure and no extensions. Hx of cholecystectomy Hx of laparoscopy Done on 09/10/[address] Cook at [facility] for pelvic pain--laparoscopy with lysis of adheions and Nexplanon removal. At time of surgery a single area of omental adhesions onto the bladder was noted which was taken down. No sign of endometriosis.. Hx of tonsillectomy Family History Father Hypertension Family/Other Ovarian cancer maternal great grandmother, maternal grandmother and paternal grandmother. She states that all of these women have had hysterectomies however she is not sure about the diagnosis of ovarian cancer... Diabetes Paternal Aunt Thyroid disease Paternal aunt Mother Hypertension Cervical cancer dx --unknown age Grandmother Stroke Paternal Colon cancer Paternal--dx age unknown Ovarian cancer Maternal--dx age unknown Grandfather Stroke Paternal Denies family history of Heart disease Hyperlipidemia Breast cancer Uterine cancer Female Reproductive History: Spontaneous abortions: No Vitals/I&O/Wt Last Vital Signs Temp 99.2 F 03/01/22 12:00 Pulse 86 03/01/22 12:00 Resp 18 03/01/22 12:51 BP 117/69 03/01/22 12:00 Pulse Ox 99 03/01/22 12:00 02/28/22 03/01/22 03/01/22 22:59 06:59 14:59 Intake Total 1360 / 1360 300 / 1660 120 / 120 Balance 1360 / 1360 300 / 1660 120 / 120 Weight last 48 hrs Weight 68.039 kg Physical Exam Const: COMMON NORMALS: no acute distress, average body habitus and patient oriented x3 GENERAL APPEARANCE: cooperative and well kempt HENMT: COMMON NORMALS: normocephalic and atraumatic HEAD & SCALP: normocephalic and atraumatic Neck/C-Spine: COMMON NORMALS: full ROM Chest: COMMONS NORMALS: normal inspection of the chest Resp: COMMON NORMALS: normal respiratory effort Cardio: COMMON NORMALS: regular rate and regular rhythm RATE: regular rate RHYTHM: regular rhythm GI: COMMON NORMALS: Soft to palpation INSPECTION: Yes normal to inspection AUSCULTATION: Yes normoactive bowel sounds PALPATION: Yes Soft to palpation, No Firmness to palpation present (GI), Yes Tenderness to palpation present (GI) (mild), No Guarding due to palpation present (GI), No Rigid due to palpation, No Palpable mass present and No Ascites present : OTHER: scant spotting Neuro: COMMON NORMALS: patient oriented x3 Psych: APPEARANCE: Yes well kempt Hospital Course Admission Diagnoses Pelvic pain Hospital Course Mrs. Ruiz 32-year-old female status post laparoscopic-assisted vaginal hysterectomy with Dr. Haq on 02/24/2022 (4 days) for cervical intraepithelial neoplasm came to the emergency room with complaints of abdominal pain, chills, nausea and vomiting. CT scan was performed while being evaluated in the emergency room which was significant for Postoperative changes associated with recent hysterectomy and Small to moderate amount of hyperdense free pelvic fluid, likely blood products. Overnight observation has been unventful, follow-up hemogram this AM is stable with no significant changes from previous hemogram. SSS Data Data Completed and Pending: Completed Studies During Hospitalization Category Date Time Status CT abdomen pelvis w con* [id number] Urge nt Cat Scan 02/28/22 13:17 Completed Discharge Plan Discharge Patient Disposition: Home Condition: Stable Prescriptions: New hydrocodone-acetaminophen 10-300 mg tablet 1 tab PO Q4H PRN (Reason: pain) Qty: 20 0RF Continued acetaminophen [Tylenol] 325 mg Tablet 325 - 650 mg PO QID PRN (Reason: Pain) 0RF triamcinolone acetonide [Nasacort] 55 mcg Aerosol,[place] 2 spray INTRANASAL DAILY 0RF loratadine [Claritin] 10 mg Tablet 10 mg PO DAILY 0RF trazodone 50 mg Tablet 50 mg PO DAILY 0RF ibuprofen 800 mg Tablet 800 mg PO Q8H Qty: 30 0RF docusate sodium 100 mg Capsule 100 mg PO BID Qty: 60 0RF Gas-X Extra Strength 125 mg Tablet,Chewable 250 mg PO TID PRN (Reason: Gas) 0RF Dulcolax (bisacodyl) 5 mg Tablet,Delayed Release (Dr/Ec) 5 mg PO DAILY PRN (Reason: Constipation) 0RF Discontinued oxycodone-acetaminophen 5-325 mg tablet 1 tab PO Q6H Qty: 30 0RF Discharge Orders: Discharge Order (Routine); Ordered 03/01/22 Ordered By: Rico Barnes Referrals: Ibis Cameron DO [Primary Care Provider] - Shanna Haq MD [Physician] - 1 week Discharge Diet: Advance as tolerated Discharge Activity: Increase activity as tolerated and Limit activity as instructed Patient Instructions: Laparoscopy, Abdominal Pain (ED), Opioid Safety (ED), Hysterectomy (GEN), Laparoscopic Hysterectomy (GEN), Opioid Safety Activity Restrictions/Additional Instructions: 1. Please call [facility] [place] clinic on next working day to make your post-operative appointment in 2 weeks. 2. Please stay home until you come back to the clinic on first post-operative check up. 3. Please follow instructions on your medications CAREFULLY. 4. If you have abdominal incision, do not cover it unless dressing is necessary because of drainage. OK to shower, but avoid bath. Leave steri-strips until they fall off. If they are still on one week after surgery, you may remove them. 5. If you had vaginal surgery or vaginal repair, Dr. Barnes may instruct you to take SITZ bath. 6. Yellow, blood tinged odorous vaginal discharge is usually normal after hysterectomy or vaginal surgeries. 7. No sexual intercourse, tampons, or douches until you are completely released from the post-operative care. 8. Avoid constipation by eating right and maybe using some Metamucil or Milk of Magnesia. 9. All prescription refills are given during the working hours. Please do no wait till it runs out. Call the clinic at [phone] before your medication runs out. The clinic will get in touch with your doctor to prescribe medications if necessary. 10. Please remain within 40 mile radius from our hospital because emergencies do happen now and then during the post-operative period. 11. If you have stairs at home, take one step at a time slowly and minimize the number of trips. It helps to stay in one floor for the next few days. No lifting except what you can lift by one hand until you are released from the post-operative care. 12. Driving is discouraged until you are well healed. It may be 3-4 weeks before you feel strong enough to drive. You should be able to turn and look through the rear window without pain and you should be able to push the brake pedal very hard without pain before you drive. No fast rules, but SAFETY should be your primary concern. DO NOT drive if you are on sedating medications such as narcotics. 13. Call the clinic (during working hours) to make urgent appointment or go to the Emergency room, if any of the following occurs: i. Vaginal bleeding becomes heavy, more than a period. ii. Incision becomes red and sore, or drains pus. iii. Your temperature is over 100.4 or you have chill. iv. IV site becomes red and swollen (a little ``knot?? is usually OK) v. Persistent nausea and vomiting vi. Persistent constipation or diarrhea vii. Rash or allergic reaction to medications. Attestations Medical Necessity Statement*: In my professional opinion per admitting diagnosis Time Spent in Patient Care*: greater than 30 min Quality Metrics Clinical Quality Measures: [ No reported AMI, CVA or VTE this stay] Coding Level of Care Code Acute Loss Control Technician for Kamaljit Buckley
== END 2022-03-01 17:48 | disposition home or self-care (01) ==
LOC: ER 18:24 → MEDSURG 20:25
PROVIDERS: Admitting Provider Obstetrics & Gynecology; Emergency Provider Emergency Medicine; PCP Family Medicine; Visit Provider Obstetrics & Gynecology
DX: R10.9 Unspecified abdominal pain (principal); Z90.710 Acquired absence of both cervix and uterus; Z98.890 Other specified postprocedural states
CPT/HCPCS: 36415; 74177; 80053; 81001; 83690; 85025; 96361; 96374; 96375; 96376; 99285; G0378; J1170; J2270; J7030; Q0162; Q9967

== ENCOUNTER → 2022-03-12 16:00 | Outpatient (BNVA) | payer BC, MEDICAID, SELFPAY | PROVIDERS: PCP Family Medicine; Visit Provider Obstetrics & Gynecology | DX: R39.9 Unspecified symptoms and signs involving the genitourinary system (principal); R31.9 Hematuria, unspecified | CPT/HCPCS: 81000; 87086 ==

== ENCOUNTER → 2022-03-16 14:32 | Outpatient (BNVA) | payer BC, MEDICAID, SELFPAY | PROVIDERS: PCP Family Medicine; Visit Provider Obstetrics & Gynecology | DX: R30.0 Dysuria (principal) | CPT/HCPCS: 81000; 87077; 87086; 87184 ==

== ENCOUNTER 2022-06-27 21:59 | Emergency (ER) | payer BC, MEDICAID, SELFPAY ==
[2022-06-27 22:02] VITALS: BP 167/77; PULSE 72; RESP 18; TEMP 36.5; O2SAT 98; BMI 29.2
--- NOTE | 2022-06-27 22:10 | ECG_ITS ---
[facility] Test Date: 2022-06-27 Pat Name: My Ruiz Department: Room: Gender: Female Operations Supervisor 2Nd Shift: : 1990 Requested By: Devan Harris Order Number: [id number] Saturnino MD: Consuelo Brady M.D. Measurements Intervals [place] Rate: 68 P: 42 WV: 147 QRS: 24 QRSD: 91 T: 32 QT: 390 QTc: 417 Interpretive Statements SINUS RHYTHM WITH MARKED SINUS ARRHYTHMIA NONSPECIFIC ST & T-WAVE ABNORMALITY No previous ECG available for comparison Electronically Signed On 06-28-2022 9:44:27 QUALITY DIRECTOR by Consuelo Brady M.D. [email or web address]
--- NOTE | 2022-06-27 22:11 | XRR_ITS ---
PROCEDURE INFORMATION: Exam: XR Chest Exam date and time: 06/27/2022 10:25 PM Age: 32 years old Clinical indication: Pain; Chest pressure; Additional info: Chest pain TECHNIQUE: Imaging protocol: Radiologic exam of the chest. Views: 1 view. COMPARISON: CR XR chest 1V portable [id number] 09/13/2019 12:43 PM FINDINGS: Lungs: Unremarkable. No consolidation. Pleural spaces: Unremarkable. No pleural effusion. No pneumothorax. Heart/Mediastinum: Unremarkable. No cardiomegaly. Bones/joints: Unremarkable. XR/XR chest 1V portable [id number] IMPRESSION: No acute findings.
--- NOTE | 2022-06-27 22:13 | W.ED.CHESTPA ---
HPI - Chest Pain General: Chief Complaint: Chest Pain Stated Complaint: ABD Pain\SOB\Chest Pain Time Seen by Provider: 06/27/22 22:11 History of Present Illness: 32-year-old female comes in today with some complaints of abdominal discomfort that has radiated up into her chest with pressure. Patient has a history of hysterectomy, gallbladder removal, anxiety, and depression. Patient appears nontoxic. Patient appears in moderate pain. Associated symptoms: Reports abdominal pain and nausea; Deny dyspnea or vomiting Review of Systems Const: Reports: chills ENMT: Denies: throat pain Card: Reports: chest pain Resp: Denies: dyspnea GI: Reports: abdominal pain and nausea; Denies: vomiting, diarrhea or constipation PFSH ED PFSH: Medical History Abscess Anxiety Depression Surgical History H/O: hysterectomy Hx of section 09/20/2014: Performed in [facility]. Operative report---> primary low transverse delivery with double layer closure and no extensions. Hx of cholecystectomy Hx of laparoscopy Done on 09/10/[address] Cook at [facility] [place] for pelvic pain--laparoscopy with lysis of adheions and Nexplanon removal. At time of surgery a single area of omental adhesions onto the bladder was noted which was taken down. No sign of endometriosis.. Hx of tonsillectomy Family History Father Hypertension Family/Other Ovarian cancer maternal great grandmother, maternal grandmother and paternal grandmother. She states that all of these women have had hysterectomies however she is not sure about the diagnosis of ovarian cancer... Diabetes Paternal Aunt Thyroid disease Paternal aunt Mother Hypertension Cervical cancer dx --unknown age Grandmother Stroke Paternal Colon cancer Paternal--dx age unknown Ovarian cancer Maternal--dx age unknown Grandfather Stroke Paternal Denies family history of Heart disease Hyperlipidemia Breast cancer Uterine cancer Female Reproductive History: Spontaneous abortions: No Physical Exam Const: COMMON NORMALS: alert HENMT: COMMON NORMALS: normocephalic HEAD & SCALP: normocephalic Neck/C-Spine: COMMON NORMALS: full ROM Resp: COMMON NORMALS: normal respiratory effort and clear to auscultation bilaterally AUSCULTATION: clear to auscultation bilaterally Cardio: COMMON NORMALS: regular rate RATE: regular rate RHYTHM: abnormal rhythm GI: COMMON NORMALS: Soft to palpation AUSCULTATION: Yes normoactive bowel sounds PALPATION: Yes Soft to palpation and Yes Tenderness to palpation present (GI) (Generalized) : COMMON NORMALS: Yes no CVA tenderness BLADDER/KIDNEY EXAM: Yes no CVA tenderness Back/Pelvis: COMMON NORMALS: no CVA tenderness Extremity: COMMON NORMALS: no pedal edema Neuro: SENSORIUM/ORIENTATION: Yes alert Skin: COMMON NORMALS: turgor normal GENERAL SKIN EXAM: turgor normal Course Vital Signs: Vital signs: Vital Signs Temperature 97.7 F 06/27/22 22: Pulse Rate 72 06/27/22 22: Respiratory Rate 18 06/27/22 22:31 Blood Pressure 167/77 06/27/22 22:02 Pulse Oximetry 98 06/27/22 22:31 Oxygen Delivery Me thod 06/27/22 22:02 MDM - Chest Pain Medical Decision Making Patient comes in today for complaints of abdominal pain now with chest pressure. Patient reports abdominal pain and nausea for the last 2 days chest pressure starting this evening. On exam patient has irregular rhythm at 72 bpm. Patient has some elevation of blood pressure. Respirations are even lungs are clear to auscultation. Bowel sounds are positive. Patient has soft abdomen. No edema is noted in the extremities. Differential diagnosis includes but not limited to pulmonary embolism, gastritis, pancreatitis, renal calculi, ACS. Lab values noted a CBC of 10.8. CMP was unremarkable. D-dimer was negative. Troponin was less than 7. EKG showed a sinus arrhythmia. Chest x-ray was unremarkable. CT of the abdomen pelvis noted some enterocolitis. Patient was treated for pain with morphine and ketorolac. Patient had improvement in symptoms. We will treat for a enterocolitis with medications for pain and nausea. Patient was instructed to monitor for high fever greater than 100.4, blood in vomit or stool, or new concerns to return the emergency department. Otherwise, follow-up with primary care. Lab Data : 06/27/22 22:17 06/27/22 22:17 Radiology Impressions Chest X-Ray 06/27/22 22:11 IMPRESSION: No acute findings. Abdomen/Pelvis CT 06/27/22 23:08 IMPRESSION: 1. Prominent fluid in the small bowel and ascending colon may reflect an enterocolitis. 2. Left ovary 18 mm peripherally enhancing cyst suggestive of a partially collapsed follicle. 3. Kidneys demonstrate mild heterogeneity bilaterally likely due to bolus timing, please correlate for possible pyelonephritis. 4. Cholecystectomy. Laboratory Results WBC 10.8 10^3/uL (4.0-10.0) H 06/27/22 22:17 RBC 5.31 10^6/uL (4.1-5.3) H 06/27/22 22:17 Hgb 13.0 g/dL (11.5-15.3) 06/27/22 22:17 Hct 42.3 % (37.0-47.0) 06/27/22 22:17 MCV 79.7 fl (81-99) L 06/27/22 22:17 MCH 24.5 pg (28.0-34.0) L 06/27/22 22:17 MCHC 30.7 g/dL (30.0-36.0) 06/27/22 22:17 RDW 15.1 % (12.1-15.1) 06/27/22 22:17 Plt Count 566 10^3/cmm (130-400) H 06/27/22 22:17 MPV 9.0 fL (7.4-10.4) 06/27/22 22:17 Neut % (Auto) 38.7 % 06/27/22 22:17 Lymph % (Auto) 50.7 % 06/27/22 22:17 [place] % (Auto) 7.3 % 06/27/22 22:17 Eos % (Auto) 2.3 % 06/27/22 22:17 Baso % (Auto) 0.7 % 06/27/22 22:17 Neut # (Auto) 4.17 10^3/uL (1.8-7.7) 06/27/22 22:17 Lymph # (Auto) 5.5 10^3/uL (0.8-4.8) H 06/27/22 22:17 [place] # (Auto) 0.8 10^3/uL (0.2-0.9) 06/27/22 22:17 Eos # (Auto) 0.3 10^3/uL (0.0-0.8) 06/27/22 22:17 Baso # (Auto) 0.1 10^3/uL (0.0-0.1) 06/27/22 22:17 Nucleated RBC % (auto) 0 % 06/27/22 22:17 Nucleated RBCs # 0.0 /100WBC 06/27/22 22:17 PT 13.70 SECONDS (12.1-14.9) 06/27/22 22:17 INR 1.02 (0.8-1.2) 06/27/22 22:17 APTT 31.4 SECONDS (23.9-36.7) 06/27/22 22:17 D-Dimer 0.31 ug/mIFEU (0-0.59) 06/27/22 22:17 Sodium 136 mmol/L (136-145) 06/27/22 22:17 Potassium 3.8 mmol/L (3.5-5.1) 06/27/22 22:17 Chloride 100 mmol/L (98-107) 06/27/22 22:17 Carbon Dioxide 22 mmol/L (22-29) 06/27/22 22:17 Anion Gap 17.8 (5-19) 06/27/22 22:17 BUN 5 mg/dL (6-20) L 06/27/22 22:17 Creatinine 0.5 mg/dL (0.5-0.9) 06/27/22 22:17 GFR Calculation 144.9 mL/min (90-130) H 06/27/22 22:17 Glucose 90 mg/dL (65-115) 06/27/22 22:17 Calculated Osmolality 279 mOsm/kg (285-295) L 06/27/22 22:17 Calcium 10.0 mg/dL (8.5-10.5) 06/27/22 22:17 Total Bilirubin 0.3 mg/dL (0.15-1.2) 06/27/22 22:17 AST 15 U/L (0-32) 06/27/22 22:17 ALT 14 U/L (0-33) 06/27/22 22:17 Alkaline Phosphatase 90 U/L (35-105) 06/27/22 22:17 Troponin T Baseline 7 ng/L (0-10) 06/27/22 22:17 NT-Pro-B Natriuret Pep 51 pg/mL (0-125) 06/27/22 22:17 Total Protein 7.6 g/dL (6.6-8.7) 06/27/22 22:17 Albumin 4.7 g/dL (3.5-5.2) 06/27/22 22:17 Globulin 2.9 g/dL (1.3-4.6) 06/27/22 22:17 Lipase 15 U/L (13-60) 06/27/22 22:17 HCG, Qual Negative (Negative) 06/27/22 22:17 Urine Color Yellow (Yellow) 06/27/22 23:15 Urine Appearance Clear (CLEAR) 06/27/22 23:15 Urine pH 5 (5-7) 06/27/22 23:15 Ur Specific [place] 1.015 (1.005-1.030) 06/27/22 23:15 Urine Protein Neg (Negative) 06/27/22 23:15 Urine Glucose (UA) Norm (Normal) 06/27/22 23:15 Urine Ketones 1+ (Negative) H 06/27/22 23:15 Urine Blood Neg (Negative) 06/27/22 23:15 Urine Nitrate Negative (Negative) 06/27/22 23:15 Urine Bilirubin Neg (Negative) 06/27/22 23:15 Urine Urobilinogen Neg mg/dL (Negative) 06/27/22 23:15 Ur Leukocyte Esterase Negative (Negative) 06/27/22 23:15 Discharge Plan Discharge Patient Disposition: Home Clinical Impression: Enterocolitis Condition: Stable Prescriptions: New hydrocodone-acetaminophen 5-325 mg tablet 1 tab PO Q8H PRN (Reason: pain (scale score 7-10)) Qty: 7 0RF ondansetron 4 mg tablet,disintegrating 4 mg PO Q8H PRN (Reason: nausea and vomiting) Qty: 7 0RF No Action clindamycin HCl 300 mg capsule 300 mg PO TID Qty: 30 0RF amoxicillin 875 mg tablet 875 mg PO BID Qty: 20 0RF doxycycline hyclate 100 mg capsule 100 mg PO BID Qty: 20 0RF acetaminophen [Tylenol] 325 mg Tablet 325 - 650 mg PO QID PRN (Reason: Pain) triamcinolone acetonide [Nasacort] 55 mcg Aerosol,Bostic 2 spray INTRANASAL DAILY loratadine [Claritin] 10 mg Tablet 10 mg PO DAILY Gas-X Extra Strength 125 mg Tablet,Chewable 250 mg PO TID PRN (Reason: Gas) Discharge Orders: Discharge ED (Routine); Ordered 06/28/22 Ordered By: Devan Mariscal Referrals: Ibis Cameron DO [Primary Care Provider] - Discharge Diet: Advance as tolerated Discharge Activity: Increase activity as tolerated Patient Instructions: Gastroenteritis (ED), Opioid Safety Activity Restrictions/Additional Instructions: Drink plenty of fluids. Use medication as directed. Use ondansetron for nausea or vomiting 1 tablet every 8 hours as needed. Use acetaminophen to help control pain. Use hydrocodone for severe pain. Follow-up with primary care in 2 to 3 days for recheck. Return to ED for fever greater than 100.4, blood in vomit or stool, or new concerns. Coding Level of Care Code ED Teacher Specialist for Kamaljit Fwd Exam Comprehensive
[2022-06-27 22:30] LABS: Basophils # 0.1 10^3/uL (0.0-0.1); Basophils % 0.7 %; Eosinophils # 0.3 10^3/uL (0.0-0.8); Eosinophils % 2.3 %; Hematocrit 42.3 % (37.0-47.0); Lymphocytes # 5.5 10^3/uL (0.8-4.8); Lymphocytes % 50.7 %; Mean Corpuscular HGB Conc 30.7 g/dL (30.0-36.0); Mean Corpuscular Hemoglobin 24.5 pg (28.0-34.0); Mean Corpuscular Volume 79.7 fl (81-99); Monocytes # 0.8 10^3/uL (0.2-0.9); Monocytes % 7.3 %; Neutrophils # 4.17 10^3/uL (1.8-7.7); Neutrophils % 38.7 %; Nucleated Red Blood Cells % 0 %; Platelet Count 566 10^3/cmm (130-400); Red Blood Count 5.31 10^6/uL (4.1-5.3); Red Cell Distribution Width 15.1 % (12.1-15.1); White Blood Count 10.8 10^3/uL (4.0-10.0)
[2022-06-27 22:31] VITALS: RESP 18; O2SAT 98
[2022-06-27] MEDS: morphine 4 mg/mL SDV 1 mL IVP (22:31)
[2022-06-27] MEDS: ondansetron 2 mg/ML SDV 2 mL 4 MG IVP (22:31)
[2022-06-27] MEDS: sodium chloride 0.9% 500 ML 999 ML IV (22:32)
[2022-06-27 22:47] LABS: INR 1.02 (0.8-1.2)
[2022-06-27 22:48] LABS: HCG, Serum Qual Negative (Negative); Partial Thromboplastin Time 31.4 SECONDS (23.9-36.7)
[2022-06-27 22:50] LABS: D Dimer 0.31 ug/mIFEU (0-0.59)
[2022-06-27 22:59] LABS: Troponin(5th) Baseline 7 ng/L (0-10)
[2022-06-27 23:08] LABS: Alanine Aminotransferase 14 U/L (0-33); Albumin Level 4.7 g/dL (3.5-5.2); Alkaline Phosphatase 90 U/L (35-105); Anion Gap 17.8 (5-19); Aspartate Amino Transferase 15 U/L (0-32); Blood Urea Nitrogen 5 mg/dL (6-20); Carbon Dioxide 22 mmol/L (22-29); Chloride 100 mmol/L (98-107); Globulin 2.9 g/dL (1.3-4.6); Glomerular Filtration Rate 144.9 mL/min (90-130); Glucose 90 mg/dL (65-115); Lipase 15 U/L (13-60); NT Pro B Type Natriuretic Pept 51 pg/mL (0-125); Osmolality Calculated 279 mOsm/kg (285-295); Potassium 3.8 mmol/L (3.5-5.1); Sodium 136 mmol/L (136-145); Total Bilirubin 0.3 mg/dL (0.15-1.2); Total Protein 7.6 g/dL (6.6-8.7)
--- NOTE | 2022-06-27 23:08 | CTR_ITS ---
PROCEDURE INFORMATION: Exam: CT Abdomen And Pelvis With Contrast Exam date and time: 06/27/2022 11:30 PM Age: 32 years old Clinical indication: Abdominal pain; Prior surgery; Additional info: Abd pain TECHNIQUE: Imaging protocol: Computed tomography of the abdomen and pelvis with contrast. Radiation optimization: All CT scans at this facility use at least one of these dose optimization techniques: automated exposure control; mA and/or kV adjustment per patient size (includes targeted exams where dose is matched to clinical indication); or iterative reconstruction. Contrast material: OMNIPAQUE 350; Contrast volume: 100 ml; Contrast route: INTRAVENOUS (IV); COMPARISON: CT abdomen pelvis w con* [id number] 02/28/2022 1:51 PM RADIATION DOSE METRICS: Total DLP (mGy-cm): 444.33 FINDINGS: Liver: Normal. No mass. Gallbladder and bile ducts: Cholecystectomy. Pancreas: Normal. No ductal dilation. Spleen: Normal. No splenomegaly. Adrenal glands: Normal. No mass. Kidneys and ureters: Kidneys demonstrate mild heterogeneity bilaterally likely due to bolus timing, please correlate for possible pyelonephritis. Stomach and bowel: Prominent fluid in the small bowel and ascending colon may reflect an enterocolitis. Appendix: No evidence of appendicitis. Intraperitoneal space: Unremarkable. No free air. No significant fluid collection. Vasculature: Unremarkable. No abdominal aortic aneurysm. Lymph nodes: Unremarkable. No enlarged lymph nodes. Urinary bladder: Unremarkable as visualized. Reproductive: Left ovary 18 mm peripherally enhancing cyst suggestive of a partially collapsed follicle. Bones/joints: Unremarkable. No acute fracture. Soft tissues: Unremarkable. CT/CT abdomen pelvis w con* [id number] IMPRESSION: 1. Prominent fluid in the small bowel and ascending colon may reflect an enterocolitis. 2. Left ovary 18 mm peripherally enhancing cyst suggestive of a partially collapsed follicle. 3. Kidneys demonstrate mild heterogeneity bilaterally likely due to bolus timing, please correlate for possible pyelonephritis. 4. Cholecystectomy.
[2022-06-27 23:21] LABS: Slide Review Slide Review Perform
[2022-06-27 23:25] LABS: Add Urine Microscopic? NO; Charge for UA Resulting for Rev
[2022-06-27 23:31] LABS: Bilirubin Urine Neg (Negative); Blood Urine Neg (Negative); Glucose Urine UA Norm (Normal); Ketones Urine 1+ (Negative); Leukocyte Esterase Urine Negative (Negative); Nitrate Urine Negative (Negative); Protein Urine Neg (Negative); Specific Gravity, Urine 1.015 (1.005-1.030); Urine Appearance Clear (CLEAR); Urine Color Yellow (Yellow); Urobilinogen Urine Neg (Negative); pH Urine 5 (5-7)
[2022-06-27] MEDS: iohexol 350 mg/mL 500 mL Btl (per mL) IV (23:42)
[2022-06-27] MEDS: ketorolac 30 mg/mL INJ 15 MG IVP (23:54)
== END 2022-06-28 00:23 | disposition home or self-care (01) ==
PROVIDERS: Emergency Provider Nurse Practitioner Family; PCP Family Medicine
DX: K52.9 Noninfective gastroenteritis and colitis, unspecified (principal)
CPT/HCPCS: 71045; 74177; 80053; 81003; 83690; 83880; 84484; 84703; 85025; 85378; 85610; 85730; 93005; 96374; 96375; 99285; J1885; J2270; J2405; J7040; Q9967

== ENCOUNTER 2022-08-06 16:23 | Outpatient (CLI) | payer BC, MEDICAID, SELFPAY ==
[2022-08-10 14:19] LABS: Insulin ( Reference Lab Test) 9.3 uIU/mL
== END 2022-08-06 16:24 | disposition home or self-care (01) ==
LOC: LAB 16:27
PROVIDERS: PCP Family Medicine; Visit Provider Obstetrics & Gynecology
DX: Z01.419 Encounter for gynecological examination (general) (routine) without abnormal findings (principal); R53.83 Other fatigue
CPT/HCPCS: 36415; 82670; 83001; 83002; 83525; 84439; 84443; 88175

== ENCOUNTER 2022-08-26 11:41 | Inpatient (IN) | payer BC, SELFPAY ==
[2022-08-26] VITALS (14 sets, daily range): BP systolic 95–137; BP diastolic 57–91; PULSE 77–119; RESP 15–22; TEMP 36.4–36.8; O2SAT 93–99; BMI 27.4
[2022-08-26 12:19] LABS: Basophils # 0.1 10^3/uL (0.0-0.1); Basophils % 0.4 %; Eosinophils # 0.1 10^3/uL (0.0-0.8); Eosinophils % 0.4 %; Hematocrit 42.9 % (37.0-47.0); Hemoglobin 13.7 g/dL (11.5-15.3); Lymphocytes # 2.6 10^3/uL (0.8-4.8); Lymphocytes % 23.4 %; Mean Corpuscular HGB Conc 31.9 g/dL (30.0-36.0); Mean Corpuscular Hemoglobin 26.2 pg (28.0-34.0); Mean Platelet Volume 9.1 fL (7.4-10.4); Monocytes # 0.6 10^3/uL (0.2-0.9); Monocytes % 5.8 %; Neutrophils # 7.74 10^3/uL (1.8-7.7); Neutrophils % 69.6 %; Nucleated Red Blood Cells % 0 %; Platelet Count 518 10^3/cmm (130-400); Red Blood Count 5.23 10^6/uL (4.1-5.3); Red Cell Distribution Width 13.9 % (12.1-15.1); White Blood Count 11.1 10^3/uL (4.0-10.0)
--- NOTE | 2022-08-26 12:20 | ED_ITS ---
Documented by User: MARYLOU Burrows 08/26/22 16:43 HPI - Abdominal Pain General: Chief Complaint: Abdominal Pain Stated Complaint: abd pain; tarry stools progressively worse Time Seen by Provider: 08/26/22 11:56 Source: patient Mode of arrival: ambulatory Limitations: no limitations History of Present Illness: Patient is a 32-year-old female presents to ED today with a complaint of diffuse abdominal pain. She states abdominal pain initially began approximately a week and a half ago and has progressively worsened in severity since onset. She states she gets significant pain anytime she tries to eat or drink. She is reporting alternating constipation and diarrhea stools. She has noticed some dark tarry stools. She is not having any rectal pain or swelling. No alcohol use. No heavy anti-inflammatory use. Previous abdominal surgeries include section, laparoscopy for lysis of adhesions, and hysterectomy. MD elicited complaint: abdominal pain Pertinent past history: none Onset (ago): week(s) Pain Consistency: constant Location: Diffuse Severity: severe Quality: cramping and sharp Radiation: none Migration to: no migration Exacerbating factors: nothing Relieving factors: nothing Associated Symptoms: Reports change in bowel habits, constipation, diarrhea, melena and nausea; Denies chills, dysuria, fever(s), hematuria, hematemesis and vomiting Related Data: Patient : No Review of Systems Const: Denies: fever(s), chills, body aches, fatigue or malaise Card: Denies: chest pain Resp: Denies: dyspnea GI: Reports: abdominal pain, nausea, diarrhea, constipation, change in bowel habits, melena and mucus in stool; Denies: vomiting or hematemesis : Denies: flank pain, dysuria or hematuria Musc: Denies: neck pain, back pain, extremity pain or joint pain Skin/Breast: Denies: rash Neuro: Denies: headache(s), numbness in extremities, weakness in extremities or sensory changes PFSH ED PFSH: Medical History Abscess Anxiety Depression Surgical History H/O: hysterectomy Hx of section 09/20/2014: Performed in [facility]. Operative report---> primary low transverse delivery with double layer closure and no extensions. Hx of cholecystectomy Hx of laparoscopy Done on 09/10/[address] Cook at [facility] [place] for pelvic pain--laparoscopy with lysis of adheions and Nexplanon removal. At time of surgery a single area of omental adhesions onto the bladder was noted which was taken down. No sign of endometriosis.. Hx of tonsillectomy Family History Father Hypertension Family/Other Ovarian cancer maternal great grandmother, maternal grandmother and paternal grandmother. She states that all of these women have had hysterectomies however she is not sure about the diagnosis of ovarian cancer... Diabetes Paternal Aunt Thyroid disease Paternal aunt Mother Hypertension Cervical cancer dx --unknown age Grandmother Stroke Paternal Colon cancer Paternal--dx age unknown Ovarian cancer Maternal--dx age unknown Grandfather Stroke Paternal Denies family history of Heart disease Hyperlipidemia Breast cancer Uterine cancer Female Reproductive History: Spontaneous abortions: No Physical Exam Const: COMMON NORMALS: patient oriented x3, no limitations, alert and well no urished GENERAL APPEARANCE: cooperative and in distress (appears mildly u ncomfortable) ORIENTATION/CONSCIOUSNESS: Yes awake, Yes oriented to person, Yes oriented to place and Yes oriented to time HENMT: COMMON NORMALS: normocephalic and atraumatic HEAD & SCALP: normal to inspection, normocephalic and atraumatic Resp: COMMON NORMALS: normal respiratory effort and clear to auscultation bilaterally AUSCULTATION: clear to auscultation bilaterally Cardio: COMMON NORMALS: regular rate and regular rhythm RATE: regular rate RHYTHM: regular rhythm GI: COMMON NORMALS: Soft to palpation INSPECTION: Yes normal to inspection AUSCULTATION: Yes normoactive bowel sounds PALPATION: Yes Soft to palpation, Yes Tenderness to palpation present (GI) (diffusely but moreso to lower abdomen), Yes Guarding due to palpation present (GI) and No Rigid due to palpation RECTAL EXAM: visual inspection normal, normal sphincter tone and heme negative stool (although not much stool collected) : COMMON NORMALS: Yes no CVA tenderness BLADDER/KIDNEY EXAM: Yes no CVA tenderness Back/Pelvis: COMMON NORMALS: no CVA tenderness Extremity: GENERAL: Yes normal exam except as noted Neuro: DEIDRE COMA SCALE: document GCS findings Deidre coma scale eye opening: Spontaneous [place] coma scale verbal response: Orientated [place] coma scale motor response: Obey commands [place] coma scale total score: 15 COMMON NORMALS: patient oriented x3, moves all extremities, no focal motor deficits, no sensory deficits noted and gait normal SENSORIUM/ORIENTATION: Yes alert, Yes oriented to person, Yes oriented to place and Yes oriented to time Skin: COMMON NORMALS: no rashes or lesions noted GENERAL SKIN EXAM: no rashes or lesions noted Course Consultations: Consultation #1: Dr. Ruffin-is agreeable to obs admit Vital Signs: Vital signs: Vital Signs Temperature 98.1 F 08/30/22 07:31 Pulse Rate 75 08/30/22 07:31 Respiratory Rate 16 08/30/22 12:11 Blood Pressure 114/72 08/30/22 07:31 Pulse Oximetry 98 08/30/22 07:31 Oxygen Delivery Me thod 08/29/22 16:00 Oxygen Flow Rate 3 08/29/22 07:33 MDM - Abdominal Pain Medical Decision Making Patient CT scan showing gastric and jejunal wall thickening along with jejunal dilatation. Patient's vital signs are stable. Her blood work overall is unremarkable. She does have some mild hypokalemia at 3.0. She was given oral supplementation for this. She states just with a small amount of water she had to take this medication with caused significant discomfort. I have given her multiple doses of narcotic pain medication and she is still rating her pain at over an 8/10. Patient states she does not feel well enough and does not believe her pain can be controlled at home with oral medication. Have spoken to ED physician who agrees with plan to admit to obs. I spoke to hospitalist Dr. Ruffin who accepts patient. Lab Data 08/26/22 12:05 08/26/22 12:05 Labs/Radiology: Radiology Impressions Abdomen/Pelvis CT 08/26/22 12:50 IMPRESSION: 1. Gastric and jejunal wall thickening, along with mild jejunal dilatation. 2. Scattered diverticula, without pericolonic inflammation. 3. Additional findings as described above. Laboratory Results WBC 11.1 10^3/uL (4.0-10.0) H 08/26/22 12:05 RBC 5.23 10^6/uL (4.1-5.3) 08/26/22 12:05 Hgb 13.7 g/dL (11.5-15.3) 08/26/22 12:05 Hct 42.9 % (37.0-47.0) 08/26/22 12:05 MCV 82.0 fl (81-99) 08/26/22 12:05 MCH 26.2 pg (28.0-34.0) L 08/26/22 12:05 MCHC 31.9 g/dL (30.0-36.0) 08/26/22 12:05 RDW 13.9 % (12.1-15.1) 08/26/22 12:05 Plt Count 518 10^3/cmm (130-400) H 08/26/22 12:05 MPV 9.1 fL (7.4-10.4) 08/26/22 12:05 Neut % (Auto) 69.6 % 08/26/22 12:05 Lymph % (Auto) 23.4 % 08/26/22 12:05 [place] % (Auto) 5.8 % 08/26/22 12:05 Eos % (Auto) 0.4 % 08/26/22 12:05 Baso % (Auto) 0.4 % 08/26/22 12:05 Neut # (Auto) 7.74 10^3/uL (1.8-7.7) H 08/26/22 12:05 Lymph # (Auto) 2.6 10^3/uL (0.8-4.8) 08/26/22 12:05 [place] # (Auto) 0.6 10^3/uL (0.2-0.9) 08/26/22 12:05 Eos # (Auto) 0.1 10^3/uL (0.0-0.8) 08/26/22 12:05 Baso # (Auto) 0.1 10^3/uL (0.0-0.1) 08/26/22 12:05 Nucleated RBC % (auto) 0 % 08/26/22 12:05 Nucleated RBCs # 0.0 /100WBC 08/26/22 12:05 Sodium 139 mmol/L (136-145) 08/26/22 12:05 Potassium 3.0 mmol/L (3.5-5.1) L 08/26/22 12:05 Chloride 98 mmol/L (98-107) 08/26/22 12:05 Carbon Dioxide 21 mmol/L (22-29) L 08/26/22 12:05 Anion Gap 23.0 (5-19) H 08/26/22 12:05 BUN 5 mg/dL (6-20) L 08/26/22 12:05 Creatinine 0.4 mg/dL (0.5-0.9) L 08/26/22 12:05 GFR Calculation 187.4 mL/min (90-130) H 08/26/22 12:05 Glucose 79 mg/dL (65-115) 08/26/22 12:05 Calculated Osmolality 284 mOsm/kg (285-295) L 08/26/22 12:05 Lactic Acid 1.2 mmol/L (0.5-2.2) 08/26/22 12:05 Calcium 9.6 mg/dL (8.5-10.5) 08/26/22 12:05 Total Bilirubin 0.3 mg/dL (0.15-1.2) 08/26/22 12:05 AST 16 U/L (0-32) 08/26/22 12:05 ALT 20 U/L (0-33) 08/26/22 12:05 Alkaline Phosphatase 88 U/L (35-105) 08/26/22 12:05 Total Protein 8.4 g/dL (6.6-8.7) 08/26/22 12:05 Albumin 4.9 g/dL (3.5-5.2) 08/26/22 12:05 Globulin 3.5 g/dL (1.3-4.6) 08/26/22 12:05 Lipase 11 U/L (13-60) L 08/26/22 12:05 HCG, Qual Negative (Negative) 08/26/22 12:05 Urine Color [place] (Yellow) 08/26/22 12:20 Urine Appearance Clear (CLEAR) 08/26/22 12:20 Urine pH 6 (5-7) 08/26/22 12:20 Ur Specific [place] 1.020 (1.005-1.030) 08/26/22 12:20 Urine Protein Neg (Negative) 08/26/22 12:20 Urine Glucose (UA) Norm (Normal) 08/26/22 12:20 Urine Ketones Negative (Negative) 08/26/22 12:20 Urine Blood Neg (Negative) 08/26/22 12:20 Urine Nitrate Negative (Negative) 08/26/22 12:20 Urine Bilirubin Neg (Negative) 08/26/22 12:20 Urine Urobilinogen Norm mg/dL (Negative) 08/26/22 12:20 Ur Leukocyte Esterase Negative (Negative) 08/26/22 12:20 RYAN Screen Cancelled 08/26/22 12:05 RYAN Titer Cancelled 08/26/22 12:05 RYAN Titer 2 Cancelled 08/26/22 12:05 RYAN Titer 3 Cancelled 08/26/22 12:05 RYAN Pattern Cancelled 08/26/22 12:05 RYAN Pattern 2 Cancelled 08/26/22 12:05 RYAN Pattern 3 Cancelled 08/26/22 12:05 Anti-ds DNA IgG Ab Cancelled 08/26/22 12:05 Mitochon/Sm Musc Ab Titr Cancelled 08/26/22 12:05 Mitochondrial DNA Scrn Cancelled 08/26/22 12:05 Discharge Plan Discharge Patient Disposition: Placed in Observation Admit Provider: Rios Ruffin Clinical Impression: Jejunal inflammation, Gastric wall thickening Coding Level of Care Code ED Soldering Inspector for Chg Fwd Exam Comprehensive Documented by User: Alex Jaquez MD 09/06/22 06:16 HPI - Abdominal Pain General: Chief Complaint: Abdominal Pain Stated Complaint: abd pain; tarry stools progressively worse Time Seen by Provider: 08/26/22 11:56 PFS ED PFSH: Medical History Abscess Anxiety Depression Surgical History H/O: hysterectomy Hx of section 09/20/2014: Performed in [facility]. Operative report---> primary low transverse delivery with double layer closure and no extensions. Hx of cholecystectomy Hx of laparoscopy Done on 09/10/[address] Cook at [facility] [place] for pelvic pain--laparoscopy with lysis of adheions and Nexplanon removal. At time of surgery a single area of omental adhesions onto the bladder was noted which was taken down. No sign of endometriosis.. Hx of tonsillectomy Family History Father Hypertension Family/Other Ovarian cancer maternal great grandmother, maternal grandmother and paternal grandmother. She states that all of these women have had hysterectomies however she is not sure about the diagnosis of ovarian cancer... Diabetes Paternal Aunt Thyroid disease Paternal aunt Mother Hypertension Cervical cancer dx --unknown age Grandmother Stroke Paternal Colon cancer Paternal--dx age unknown Ovarian cancer Maternal--dx age unknown Grandfather Stroke Paternal Denies family history of Heart disease Hyperlipidemia Breast cancer Uterine cancer Physical Exam Neuro: DEIDRE COMA SCALE: document GCS findings [place] coma scale total score: 15 Course Vital Signs: Vital signs: Vital Signs Temperature 98.1 F 08/30/22 07:31 Pulse Rate 75 08/30/22 07:31 Respiratory Rate 16 08/30/22 12:11 Blood Pressure 114/72 08/30/22 07:31 Pulse Oximetry 98 08/30/22 07:31 Oxygen Delivery Me thod 08/29/22 16:00 Oxygen Flow Rate 3 08/29/22 07:33 MDM - Abdominal Pain Medical Decision Making Patient CT scan showing gastric and jejunal wall thickening along with jejunal dilatation. Patient's vital signs are stable. Her blood work overall is unremarkable. She does have some mild hypokalemia at 3.0. She was given oral supplementation for this. She states just with a small amount of water she had to take this medication with caused significant discomfort. I have given her multiple doses of narcotic pain medication and she is still rating her pain at over an 8/10. Patient states she does not feel well enough and does not believe her pain can be controlled at home with oral medication. Have spoken to ED physician who agrees with plan to admit to obs. I spoke to hospitalist Dr. Ruffin who accepts patient. I discussed this case with MARYLOU Burrows. I reviewed documentation, laboratory studies, and imaging. Alex Jaquez MD Emergency Medicine Lab Data 08/26/22 12:05 08/26/22 12:05 Labs/Radiology: Radiology Impressions Abdomen/Pelvis CT 08/26/22 12:50
[2022-08-26 12:44] LABS: HCG, Serum Qual Negative (Negative)
--- NOTE | 2022-08-26 12:50 | CTR_ITS ---
PROCEDURE INFORMATION: Exam: CT Abdomen And Pelvis With Contrast Exam date and time: 08/26/2022 1:11 PM Age: 32 years old Clinical indication: Abdominal pain; Prior surgery; Surgery type: Hyst, gb; Additional info: Ab pain, dark stools TECHNIQUE: Imaging protocol: Computed tomography of the abdomen and pelvis with contrast. Radiation optimization: All CT scans at this facility use at least one of these dose optimization techniques: automated exposure control; mA and/or kV adjustment per patient size (includes targeted exams where dose is matched to clinical indication); or iterative reconstruction. Contrast material: OMNI 350; Contrast volume: 100 ml; Contrast route: INTRAVENOUS (IV); COMPARISON: CT abdomen pelvis w con* [id number] 06/27/2022 11:30 PM RADIATION DOSE METRICS: Total DLP (mGy-cm): 393.23 FINDINGS: Lungs: No acute airspace or pleural disease. Liver: No focal hepatic mass. Gallbladder and bile ducts: Status post cholecystectomy. Pancreas: No pancreatic mass or ductal dilatation. Spleen: Spleen upper limits of normal size. Adrenal glands: Unremarkable adrenals. Kidneys and ureters: Normal renal morphology. No hydronephrosis. Stomach and bowel: Gastric and jejunal wall thickening, along with mild jejunal dilatation. Scattered diverticula, without pericolonic inflammation. Appendix: No acute appendicitis. Intraperitoneal space: No significant free fluid. Vasculature: Normal caliber of the abdominal aorta. Lymph nodes: Subcentimeter lymph nodes. Urinary bladder: Nondistended bladder. Reproductive: Status post hysterectomy. 3.0 x 2.0 by 3.7 cm cystic structure in the left adnexa, presumably ovarian in etiology. Bones/joints: No acute osseous pathology. Soft tissues: Small umbilical hernia. CT/CT abdomen pelvis w con* [id number] IMPRESSION: 1. Gastric and jejunal wall thickening, along with mild jejunal dilatation. 2. Scattered diverticula, without pericolonic inflammation. 3. Additional findings as described above.
[2022-08-26 12:51] LABS: Add Urine Microscopic? NO; Charge for UA Resulting for Rev
[2022-08-26 12:56] LABS: Bilirubin Urine Neg (Negative); Blood Urine Neg (Negative); Glucose Urine UA Norm (Normal); Ketones Urine Negative (Negative); Leukocyte Esterase Urine Negative (Negative); Nitrate Urine Negative (Negative); Protein Urine Neg (Negative); Urine Appearance Clear (CLEAR); Urine Color Amber (Yellow); Urobilinogen Urine Norm (Negative); pH Urine 6 (5-7)
[2022-08-26] MEDS: iohexol 350 mg/mL 500 mL Btl (per mL) IV (13:17)
[2022-08-26 13:22] LABS: Alanine Aminotransferase 20 U/L (0-33); Albumin Level 4.9 g/dL (3.5-5.2); Alkaline Phosphatase 88 U/L (35-105); Aspartate Amino Transferase 16 U/L (0-32); Blood Urea Nitrogen 5 mg/dL (6-20); Calcium 9.6 mg/dL (8.5-10.5); Carbon Dioxide 21 mmol/L (22-29); Chloride 98 mmol/L (98-107); Globulin 3.5 g/dL (1.3-4.6); Glomerular Filtration Rate 187.4 mL/min (90-130); Glucose 79 mg/dL (65-115); Osmolality Calculated 284 mOsm/kg (285-295); Sodium 139 mmol/L (136-145); Total Bilirubin 0.3 mg/dL (0.15-1.2); Total Protein 8.4 g/dL (6.6-8.7)
[2022-08-26 13:37] LABS: Lipase 11 U/L (13-60)
[2022-08-26] MEDS: morphine 4 mg/mL SDV 1 mL IVP (13:45)
[2022-08-26] MEDS: ondansetron 2 mg/ML SDV 2 mL 4 MG IVP ×2 (13:46→18:39)
[2022-08-26] MEDS: sodium chloride 0.9% 1,000 ML 999 ML IV (13:47)
[2022-08-26] MEDS: potassium chloride ER 20 mEq Tablet 40 MEQ PO (13:47)
[2022-08-26] MEDS: HYDROmorphone 1 mg/mL INJ 1 mL 0.5 MG IVP (14:43)
[2022-08-26] MEDS: pantoprazole 40 mg SDV IVP (14:46)
[2022-08-26] MEDS: HYDROmorphone 1 mg/mL INJ 1 mL IVP (15:06)
[2022-08-26 16:08] LABS: Lactic Sepsis W/Reflex 1.2 mmol/L (0.5-2.2)
--- NOTE | 2022-08-26 18:18 | P.HP_ITS ---
Providers/Chief Complaint Chief Complaint: abd pain; tarry stools progressively worse History of Present Illness My Ruiz is a 32 year old female with no significant past medical history came in with chief complaint of Generalized abdominal pain, dry heaves, no vomiting, along with constipation with alternating diarrhea, with, predominantly a lot of mucus in the stool, as well as recently has also noted some blood in stool.going on for the last 10 days, she has history of similar Recurrent abdominal pain going on for the last few years, this episode is significantly worse than the prior ones, Prior episodes usually last for few days and resolves spontaneously with tylenol, as well as some antispasmodic medications.Currently she has denied any rash, though she has complained of longstanding joint pain predominantly knee and elbow joint pain, denied any oral ulcers, visual disturbances, eye pain, sick contact, unusual food recently. CT abdomen and pelvis done in the ER has shown: ?Gastric and jejunal wall thickening, along with mild jejunal dilatation. Pertinent labs: WBC 11, H&H 13/42 , PLT : 518 , sodium 139, potassium 3, serum bicarb 21, BUN 5 serum creatinine 0.5, lipase 11, AST ALT alk phos:Normal, total bilirubin: Normal Review of Systems General: Reports: 10 or more systems reviewed and unremarkable except in HPI and below Const: Denies: fever(s), chills, body aches, change in appetite or diaphoresis Card: Denies: palpitations, edema, swelling of feet/ankles, dyspnea on exertion, orthopnea or leg pain with exertion Resp: Denies: dyspnea, productive cough, wheezing or pain on inspiration GI: Reports: abdominal pain, nausea, diarrhea and constipation; Denies: vomiting : Denies: flank pain Musc: Denies: back pain, extremity pain or extremity swelling Neuro: Denies: headache(s), difficulty walking or confusion Medications/Allergies Home Medications Medication Instructions Recorded Confirmed Last Taken Type loratadine 10 mg tablet (Claritin) 10 mg PO DAILY 11/15/20 08/26/22 2 Weeks Ago History ~08/12/22 triamcinolone acetonide 55 mcg 2 spray intranasal DAILY 08/06/22 08/26/22 2 Weeks Ago History nasal spray aerosol (Nasacort) ~08/12/22 Dayquil Caps 2 cap PO .ONCE TODAY 08/26/22 08/26/22 08/26/22 07:00 History acetaminophen 500 mg tablet 1,000 mg PO Q6H PRN Pain 08/26/22 08/26/22 Unknown History hydrocodone 5 mg-acetaminophen 325 1 tab PO Q8H PRN Pain 08/26/22 08/26/22 1 Week Ago History mg tablet ~08/19/22 ondansetron 8 mg disintegrating 8 mg PO Q8H PRN Nausea And Vomiting 08/26/22 08/26/22 Unknown History tablet Allergies Allergy/AdvReac Type Severity Reaction Status Date / Time azithromycin AdvReac vomiting Verified 08/26/22 12:32 cefprozil [From Cefzil] AdvReac rash and Verified 08/26/22 12:32 hives Sulfa (Sulfonamide AdvReac unknown Verified 08/26/22 12:32 Antibiotics) PFSH Acute PFSH: Medical History Abscess Anxiety Depression Surgical History H/O: hysterectomy Hx of section 09/20/2014: Performed in [facility]. Operative report---> primary low transverse delivery with double layer closure and no extensions. Hx of cholecystectomy Hx of laparoscopy Done on 09/10/[address] Cook at [facility] [place] for pelvic pain--laparoscopy with lysis of adheions and Nexplanon removal. At time of surgery a single area of omental adhesions onto the bladder was noted which was taken down. No sign of endometriosis.. Hx of tonsillectomy Family History Father Hypertension Family/Other Ovarian cancer maternal great grandmother, maternal grandmother and paternal grandmother. She states that all of these women have had hysterectomies however she is not sure about the diagnosis of ovarian cancer... Diabetes Paternal Aunt Thyroid disease Paternal aunt Mother Hypertension Cervical cancer dx --unknown age Grandmother Stroke Paternal Colon cancer Paternal--dx age unknown Ovarian cancer Maternal--dx age unknown Grandfather Stroke Paternal Denies family history of Heart disease Hyperlipidemia Breast cancer Uterine cancer Female Reproductive History: Spontaneous abortions: No Vitals/I&O/Wt Last Vital Signs Temp 97.6 F 01/04/23 11:43 Pulse 97 08/26/22 11:43 Resp 16 08/26/22 15:06 BP 119/91 08/26/22 14:00 Pulse Ox 98 08/26/22 14:00 O2 Del Method 08/26/22 11:43 Weight last 48 hrs Weight 61.689 kg Physical Exam Const: COMMON NORMALS: patient oriented x3 Resp: COMMON NORMALS: clear to auscultation bilaterally AUSCULTATION: clear to auscultation bilaterally Cardio: COMMON NORMALS: regular rate, regular rhythm, S1 normal heart sound present, S2 normal heart sound present, No gallops present (Cardio), No murmurs present (Cardio), No rub (Cardio) and Peripheral pulses 2+ throughout RATE: regular rate RHYTHM: regular rhythm HEART SOUNDS: S1 normal heart sound present and S2 normal heart sound present PERIPHERAL PULSES: Peripheral pulses 2+ throughout GI: COMMON NORMALS: Normal to inspection, nondistended, normoactive bowel sounds present, Soft to palpation, non-tender, No hepatosplenomegaly present and no masses AUSCULTATION: Yes normoactive bowel sounds PALPATION: Yes Soft to palpation and Yes No hepatosplenomegaly present RECTAL EXAM: deferred Extremity: COMMON NORMALS: no clubbing, cyanosis or edema and no pedal edema Neuro: COMMON NORMALS: patient oriented x3 Data 08/26/22 12:05 08/26/22 12:05 A&P Assessment and plan (1) Abdominal pain: (2) Jejunal inflammation: (3) Gastric wall thickening: Plan 32 year old female with no significant past medical history came in with chief complaint of Generalized abdominal pain, dry heaves, no vomiting, along with constipation with alternating diarrhea, with, predominantly a lot of mucus in the stool, as well as recently has also noted some blood in stool ,going on for the last 10 da ys, she has history of similar Recurrent abdominal pain going on for the last few years, this episode is significantly worse than the prior ones, Prior episodes usually last for few days and resolves spontaneously with tylenol, as well as some antispasmodic medications.Currently she has denied any rash, though she has complained of longstanding joint pain predominantly knee and elbow joint pain, denied any oral ulcers, visual disturbances, eye pain, sick contact, unusual food recently. Assessment: Abdominal pain: Hypokalemia Possible gastritis Possible jejunitis Based on her clinical history, it seems like she may be having IBD/possible IBS/possible microscopic colitis though she has denied any PPI use, and also do not fall in classic age group/ though she has denied Significant important findings as mentioned in HPI, will have to rule out other possible causes of abdominal pain Including gastritis. Currently we will keep patient on IV antiemetics, IV hydration, pain control, thinking the possibility of IBD flare though less likely, will keep her on a trial of IV steroids, as well as IV antibiotics. We will consider colonoscopy as well as EGD. Follow stool's C. difficile, enteric bacterial pathogen, stool for ova and chest, stool lactoferrin, RYAN profile, Rheumatoid factor Anti-CCP CODE STATUS: Full code DVT prophylaxis: On Lovenox Attestations Medical Necessity Statement*: Patient needs to be in hospital for IV fluids IV hydration.Anticipated length of stay: Greater than 2 midnights Time Spent in Patient Care: Greater than 35 minutes (>than 50% of time spent in counselling and/or direct pt care on unit) . Coding Level of Care Code Acute Primary Special Educator for [facility] Fwd Exam Detailed Diagnoses Abdominal pain R10.9 Jejunal inflammation K52.9 Gastric wall thickening K31.89
[2022-08-26] MEDS: metroNIDAZOLE IV 500 MG/100 ML PREMIX 100 MG IV (18:39)
[2022-08-26] MEDS: enoxaparin 40 mg/0.4 mL Syringe SUBCUT (18:41)
[2022-08-26] MEDS: ciprofloxacin 200 MG/100 ML PREMIX 100 MG IV (19:56)
[2022-08-26] MEDS: sodium chloride 0.9% 1,000 ML 125 ML IV (20:00)
[2022-08-26] MEDS: morphine 4 mg/mL SDV 1 mL 2 MG IVP (20:38)
[2022-08-26] MEDS: lidocaine 1% 5 ML in potassium chloride premix 100 ML 25 ML IV (23:37)
[2022-08-27] VITALS (8 sets, daily range): BP systolic 94–108; BP diastolic 57–70; PULSE 58–77; RESP 15–20; TEMP 36.6–36.8; O2SAT 96–98
[2022-08-27] MEDS: ondansetron 2 mg/ML SDV 2 mL 4 MG IVP ×4 (00:45→23:06)
[2022-08-27] MEDS: morphine 4 mg/mL SDV 1 mL 2 MG IVP ×2 (00:47→20:49)
[2022-08-27 01:27] LABS: Basophils % 0.3 %; Hemoglobin 11.4 g/dL (11.5-15.3); Lymphocytes # 1.1 10^3/uL (0.8-4.8); Lymphocytes % 13.4 %; Mean Corpuscular HGB Conc 31.7 g/dL (30.0-36.0); Mean Corpuscular Hemoglobin 26.3 pg (28.0-34.0); Mean Corpuscular Volume 83.1 fl (81-99); Mean Platelet Volume 9.3 fL (7.4-10.4); Monocytes # 0.2 10^3/uL (0.2-0.9); Monocytes % 1.9 %; Neutrophils # 6.61 10^3/uL (1.8-7.7); Neutrophils % 84.1 %; Nucleated Red Blood Cells % 0 %; Platelet Count 412 10^3/cmm (130-400); Red Blood Count 4.33 10^6/uL (4.1-5.3); Red Cell Distribution Width 13.8 % (12.1-15.1); White Blood Count 7.9 10^3/uL (4.0-10.0)
[2022-08-27 01:50] LABS: Alanine Aminotransferase 13 U/L (0-33); Albumin Level 4.1 g/dL (3.5-5.2); Alkaline Phosphatase 69 U/L (35-105); Anion Gap 19.4 (5-19); Aspartate Amino Transferase 12 U/L (0-32); Blood Urea Nitrogen 4 mg/dL (6-20); Calcium 8.8 mg/dL (8.5-10.5); Carbon Dioxide 19 mmol/L (22-29); Chloride 107 mmol/L (98-107); Globulin 2.6 g/dL (1.3-4.6); Glomerular Filtration Rate 261.2 mL/min (90-130); Glucose 93 mg/dL (65-115); Magnesium 1.9 mg/dL (1.7-2.3); Osmolality Calculated 289 mOsm/kg (285-295); Phosphorus 3.8 mg/dL (2.5-4.5); Potassium 4.4 mmol/L (3.5-5.1); Sodium 141 mmol/L (136-145); Total Bilirubin 0.2 mg/dL (0.15-1.2); Total Protein 6.7 g/dL (6.6-8.7)
[2022-08-27 01:52] LABS: C Reactive Protein 8.4 mg/L (0.0-4.9)
[2022-08-27] MEDS: metroNIDAZOLE IV 500 MG/100 ML PREMIX 100 MG IV ×3 (03:16→17:02)
[2022-08-27] MEDS: sodium chloride 0.9% 1,000 ML 125 ML IV ×2 (05:40→15:38)
[2022-08-27] MEDS: metoclopramide 5 mg/mL SDV 2 mL IVP ×2 (05:47→20:49)
--- NOTE | 2022-08-27 08:33 | DCPLANNER ---
Addendum entered by Nannette Coronel 08/28/22 14:17: bakery manager received the following message from the general surgery clinic regarding follow up appointment: Patient called back & stated she was still in the hospital and that a endoscopy & colonoscopy aare being done tomorrow morning (08/29).. Wished her well and told her to call us if she needed anything.. Original Note: bakery manager had message to schedule a follow up appointment for patient with general surgery. bakery manager sent patients information to the front office staff at general surgery. Patients information will be printed and reviewed. Clinic will call patient with appointment information.
--- NOTE | 2022-08-27 10:16 | PC.CHAP ---
Pastoral Care Encounter/Spiritual Assessment Type of Contact [] Declined electrical logging engineer visit [] Patient/Family/Request visit [] Outpatient visit [] Follow-up visit [] Physician referral [] Code/Alert [] Routine visit [] Staff referral [] Actively dying [] Patient sleeping [] Family support [] [] Out of room [] Palliative care [] [] Receiving care in room [] Pre-surgical visit [] Trauma [] Long length of stay [] ICU visit [] Other: Relational/Emotional Strength [] Patient feels connected with others/family/visitors/staff [] Distress [] Loneliness/isolation [] Abandonment Spirituality of Patient [x] Person of Mariah [] Attends Synagogue of their Mariah [] Believes in Prayer [] Reads Bible or Nondenominational materials [] There are Spiritual issues to be addressed Assistant Press Operator Offset Interventions [x] Prayer [] Active listening [] Non-anxious presence [] Spiritual/emotional support [] Crisis/trauma care [] Spiritual counseling [] Bereavement support [] Provided bereavement packet [] Provided Bible/devotional materials [] Provided toy/stuffed animal, coloring book to patient or family member [] Provided Communion [] Anointing/Azle [] Salvation [] Completed spiritual assessment [] Other: Impact on Illness or Injury [] Angry [] Fearful [] Anxious [] Often cries [] Exhaustion [] Unable to work [] Unable to attend nondenominational [] Unable to walk/stand [] Unable to read [] Unable to drive [] Unable to eat/drink [] Unable to sleep [] Unable to be with family [] Patient intubated [] Other: Summary prayed checking with doctor Time spent with patient 8 mins
[2022-08-27] MEDS: acetaminophen 325 mg Tablet 650 MG PO (10:36)
[2022-08-27] MEDS: ciprofloxacin 200 MG/100 ML PREMIX 100 MG IV ×2 (11:39→18:30)
--- NOTE | 2022-08-27 14:55 | PM.PN ---
Subjective Subjective: Patient was seen and examined this morning, abdominal pain is slightly better though she has intermittent cramping, still having dry heaves. Medications: Medication Review Details: Generic Name Dose Route Start Last Admin Trade Name Jeff PRN Reason Stop Dose Admin Acetaminophen 650 mg 08/26/22 18:12 08/27/22 10:36 Acetaminophen 32 5 Mg Tablet PO 650 mg Q6H PRN Administration Mild/Mod Pain Or Temp >/= 101 Enoxaparin Sodium 40 mg 08/26/22 18:30 08/26/22 18:41 Enoxaparin 40 Mg /0.4 Ml Syringe SUBCUT 40 mg Q24H ROBBI Administration Sodium Chloride 1,000 mls @ 125 m ls/hr 08/26/22 18:15 08/27/22 05:40 Sodium Chloride 0.9% IV 125 mls/hr .Q8H ROBBI Administration Metronidazole 500 mg in 100 mls @ 100 mls/hr 08/26/22 18:30 08/27/22 12:00 Flagyl Iv IV Infused Q8H [facility] Infusion Protocol Ciprofloxacin/Dext juan antonio 200 mg in 100 mls @ 100 mls/hr 08/26/22 18:25 08/27/22 13:35 Cipro IV Infused BID [facility] Infusion Protocol Methylprednisolone Sodium Succinate 40 mg 08/26/22 19:00 08/27/22 10:22 Methylprednisolo ne Sod Succ 40 Mg/ Ml Inj IVP 40 mg BID ROBBI Administration Metoclopramide HCl 5 mg 08/26/22 18:14 08/27/22 05:47 Metoclopramide 5 Mg/Ml Sdv 2 Ml IVP 5 mg Q6H PRN Administration nausea Morphine Sulfate 2 mg 08/26/22 18:12 08/27/22 00:47 Morphine 4 Mg/Ml Sdv 1 Ml IVP 2 mg Q4H PRN Administration SEVERE PAIN Pantoprazole Sodiu m 40 mg 08/26/22 18:15 08/26/22 22:45 Pantoprazole 40 Mg Sdv IVP Not Given Q24H ROBBI Vitals/I&O/Wt Last Vital Signs Temp 98.3 F 08/27/22 11:47 Pulse 71 08/27/22 11:47 Resp 16 08/27/22 11:47 BP 108/70 08/27/22 11:47 Pulse Ox 96 08/27/22 11:47 O2 Del Method 08/27/22 11:47 08/26/22 08/27/22 08/27/22 22:59 06:59 14:59 Intake Total 1100 / 1100 1301.25 / 2401.25 100 / 100 Balance 1100 / 1100 1301.25 / 2401.25 100 / 100 Weight last 48 hrs Weight 61.689 kg Physical Exam Const: COMMON NORMALS: patient oriented x3 Resp: COMMON NORMALS: clear to auscultation bilaterally AUSCULTATION: clear to auscultation bilaterally Cardio: COMMON NORMALS: regular rate, regular rhythm, S1 normal heart sound present, S2 normal heart sound present, No gallops present (Cardio), No murmurs present (Cardio), No rub (Cardio) and Peripheral pulses 2+ throughout RATE: regular rate RHYTHM: regular rhythm HEART SOUNDS: S1 normal heart sound present and S2 normal heart sound present PERIPHERAL PULSES: Peripheral pulses 2+ throughout GI: COMMON NORMALS: Normal to inspection, nondistended, normoactive bowel sounds present, Soft to palpation, non-tender, No hepatosplenomegaly present and no masses AUSCULTATION: Yes normoactive bowel sounds PALPATION: Yes Soft to palpation and Yes No hepatosplenomegaly present RECTAL EXAM: deferred Extremity: COMMON NORMALS: no clubbing, cyanosis or edema and no pedal edema Neuro: COMMON NORMALS: patient oriented x3 Data 08/27/22 00:57 08/27/22 00:57 A&P Assessment and plan (1) Abdominal pain: (2) Jejunal inflammation: (3) Gastric wall thickening: Plan 32 year old female with no significant past medical history came in with chief complaint of Generalized abdominal pain, dry heaves, no vomiting, along with constipation with alternating diarrhea, with, predominantly a lot of mucus in the stool, as well as recently has also noted some blood in stool ,going on for the last 10 days, she has history of similar Recurrent abdominal pain going on for the last few years, this episode is significantly worse than the prior ones, Prior episodes usually last for few days and resolves spontaneously with tylenol, as well as some antispasmodic medications.Currently she has denied any rash, though she has complained of longstanding joint pain predominantly knee and elbow joint pain, denied any oral ulcers, visual disturbances, eye pain, sick contact, unusual food recently. Assessment: Abdominal pain: Hypokalemia Possible gastritis Possible jejunitis Based on her clinical history, it seems like she may be having IBD/possible IBS/possible microscopic colitis though she has denied any PPI use, and also do not fall in classic age group/ though she has denied Significant important findings as mentioned in HPI, will have to rule out other possible causes of abdominal pain Including gastritis. Currently we will keep patient on IV antiemetics, IV hydration, pain control, thinking the possibility of IBD flare though less likely, will keep her on a trial of IV steroids, as well as IV antibiotics. We will consider colonoscopy as well as EGD. Follow stool's C. difficile, enteric bacterial pathogen, stool for ova and chest, stool lactoferrin, RYAN profile, Rheumatoid factor: 10 Anti-CCP: Plan for today: Continue with IV hydration, steroids, IV antibiotics, surgery has been consulted for possible EGD and colonoscopy. CODE STATUS: Full code DVT prophylaxis: On Lovenox Attestations Medical Necessity Statement*: In hospital for management of abdominal pain, need for possible colonoscopy. Coding Level of Care Code Acute Plant Health Care Technician for [facility] Fwd Diagnoses Abdominal pain R10.9 Jejunal inflammation K52.9 Gastric wall thickening K31.89
--- NOTE | 2022-08-27 15:29 | P.CONIM_ITS ---
Providers/Reason For Consult Consulting Physician/Specialty*: Dr. Maxim Cerda, General Surgery Reason for Consult*: Diagnostic EGD and Colonoscopy Requesting Physician: Rios Ruffin MD Attending Physician: Rios Ruffin MD History of Present Illness History of Present Illness My Ruiz is a 32 year old female who presented via ED with 10 days abdominal pain, dry heaves, and constipation alternating with diarrhea similar to but worse than prior episodes which have occurred intermittently throughout the last several years which would resolved after several days of being managed with Tylenol. She has no personal nor family history of inflammatory bowel disease. She has denied any rash, though she has complained of longstanding joint pain predominantly knee and elbow joint pain, denied any oral ulcers, visual disturbances, eye pain, sick contact, or unusual food recently. Review of Systems General: Reports: 10 or more systems reviewed and unremarkable except in HPI and below Medications/Allergies Home Medications Medication Instructions Recorded Confirmed Last Taken Type loratadine 10 mg tablet (Claritin) 10 mg PO DAILY 11/15/20 08/26/22 2 Weeks Ago History ~08/12/22 triamcinolone acetonide 55 mcg 2 spray intranasal DAILY 08/06/22 08/26/22 2 Weeks Ago History nasal spray aerosol (Nasacort) ~08/12/22 Dayquil Caps 2 cap PO .ONCE TODAY 08/26/22 08/26/22 08/26/22 07:00 History acetaminophen 500 mg tablet 1,000 mg PO Q6H PRN Pain 08/26/22 08/26/22 Unknown History hydrocodone 5 mg-acetaminophen 325 1 tab PO Q8H PRN Pain 08/26/22 08/26/22 1 Week Ago History mg tablet ~08/19/22 ondansetron 8 mg disintegrating 8 mg PO Q8H PRN Nausea And Vomiting 08/26/22 08/26/22 Unknown History tablet Allergies Allergy/AdvReac Type Severity Reaction Status Date / Time azithromycin AdvReac vomiting Verified 08/26/22 12:32 cefprozil [From Cefzil] AdvReac rash and Verified 08/26/22 12:32 hives Sulfa (Sulfonamide AdvReac unknown Verified 08/26/22 12:32 Antibiotics) Current Medications Generic Name Dose Route Start Last Admin Trade Name Freq PRN Reason Stop Dose Admin Acetaminophen 650 mg 08/26/22 18:12 08/27/22 10:36 Acetaminophen 325 Mg Tablet PO 650 mg Q6H PRN Administration Mild/Mod Pain Or Temp >/= 101 Enoxaparin Sodium 40 mg 08/26/22 18:30 08/26/22 18:41 Enoxaparin 40 Mg/0.4 Ml Syringe SUBCUT 40 mg Q24H ROBBI Administration Sodium Chloride 1,000 mls @ 125 mls/hr 08/26/22 18:15 08/27/22 05:40 Sodium Chloride 0.9% IV 125 mls/hr .Q8H ROBBI Administration Metronidazole 500 mg in 100 mls @ 100 mls/hr 08/26/22 18:30 08/27/22 12:00 Flagyl Iv IV Infused Q8H [facility] Infusion Protocol Ciprofloxacin/Dextrose 200 mg in 100 mls @ 100 mls/hr 08/26/22 18:25 08/27/22 13:35 Cipro IV Infused BID [facility] Infusion Protocol Methylprednisolone Sodium Succinate 40 mg 08/26/22 19:00 08/27/22 10:22 Methylprednisolone Sod Succ 40 Mg/Ml Inj IVP 40 mg BID ROBBI Administration Metoclopramide HCl 5 mg 08/26/22 18:14 08/27/22 05:47 Metoclopramide 5 Mg/Ml Sdv 2 Ml IVP 5 mg Q6H PRN Administration nausea Morphine Sulfate 2 mg 08/26/22 18:12 08/27/22 00:47 Morphine 4 Mg/Ml Sdv 1 Ml IVP 2 mg Q4H PRN Administration SEVERE PAIN Pantoprazole Sodium 40 mg 08/26/22 18:15 08/26/22 22:45 Pantoprazole 40 Mg Sdv IVP Not Given Q24H ROBBI PFSH Acute PFSH: Medical History Abscess Anxiety Depression Surgical History H/O: hysterectomy Hx of section 09/20/2014: Performed in [facility]. Operative report---> primary low transverse delivery with double layer closure and no extensions. Hx of cholecystectomy Hx of laparoscopy Done on 09/10/[address] Cook at [facility] for pelvic pain--laparoscopy with lysis of adheions and Nexplanon removal. At time of surgery a single area of omental adhesions onto the bladder was noted which was taken down. No sign of endometriosis.. Hx of tonsillectomy Family History Father Hypertension Family/Other Ovarian cancer maternal great grandmother, maternal grandmother and paternal grandmother. She states that all of these women have had hysterectomies however she is not sure about the diagnosis of ovarian cancer... Diabetes Paternal Aunt Thyroid disease Paternal aunt Mother Hypertension Cervical cancer dx --unknown age Grandmother Stroke Paternal Colon cancer Paternal--dx age unknown Ovarian cancer Maternal--dx age unknown Grandfather Stroke Paternal Denies family history of Heart disease Hyperlipidemia Breast cancer Uterine cancer Female Reproductive History: Spontaneous abortions: No Vitals/I&O/Wt Last Vital Signs Temp 98.3 F 08/27/22 11:47 Pulse 71 08/27/22 11:47 Resp 16 08/27/22 11:47 BP 108/70 08/27/22 11:47 Pulse Ox 96 08/27/22 11:47 O2 Del Method 08/27/22 11:47 08/27/22 08/27/22 08/27/22 06:59 14:59 22:59 Intake Total 1301.25 / 2401.25 200 / 200 Balance 1301.25 / 2401.25 200 / 200 Weight last 48 hrs Weight 136 lb Physical Exam Const: COMMON NORMALS: average body habitus, patient oriented x3, healthy appearing and alert GENERAL APPEARANCE: cooperative and other (holding abd with arms, wincing) ORIENTATION/CONSCIOUSNESS: Yes awake, Yes oriented to person, Yes oriented to place and Yes oriented to time HENMT: COMMON NORMALS: normocephalic, atraumatic, external ears normal, Normal external nose present and moist oral mucous membranes HEAD & SCALP: normocephalic and atraumatic NOSE: Normal external nose present EXTERNAL EAR: Yes external ears normal Eye: COMMON NORMALS: EOMs intact bilaterally and no scleral icterus GENERAL EYE: appearance normal, both eyes and all related structures and no exophthalmos Neck/C-Spine: COMMON NORMALS: full ROM, supple and no JVD GENERAL: Yes normal visual inspection Resp: COMMON NORMALS: normal respiratory effort, No retractions and No use of accessory muscles EFFORT & INSPECTION: Yes able to speak in complete sentences and Yes symmetric chest movement Cardio: COMMON NORMALS: no JVD, regular rate and regular rhythm RATE: regular rate RHYTHM: regular rhythm PERIPHERAL PULSES: radial pulses present GI: COMMON NORMALS: Soft to palpation and no masses INSPECTION: Yes normal to inspection, No abdominal distension and Yes scar (surgical, well healed) PALPATION: Yes Soft to palpation, Yes Tenderness to palpation present (GI) (diffusely), No Guarding due to palpation present (GI), No Rigid due to palpation, No Hernia present and No Rebound tenderness present RECTAL EXAM: deferred : EXTERNAL FEMALE EXAM: No Hernia present Extremity: COMMON NORMALS: normal to inspection and full ROM Neuro: COMMON NORMALS: patient oriented x3, CN's II-XII intact bilaterally, moves all extremities, no focal motor deficits and no sensory deficits noted SENSORIUM/ORIENTATION: Yes alert, Yes oriented to person, Yes oriented to place and Yes oriented to time Psych: COMMON NORMALS: mental status grossly normal, Normal thought process present, cooperative, normal affect and activity/motor behavior normal THOUGHT PROCESS: Normal thought process present Skin: COMMON NORMALS: no rashes or lesions noted, no wounds, turgor normal and no jaundice GENERAL SKIN EXAM: no rashes or lesions noted and turgor normal Data 08/27/22 00:57 08/27/22 00:57 CT Abd/Pel: Radiologist's impression: Gastric and jejunal wall thickening, along with mild jejunal dilatation. A&P Assessment and plan (1) Abdominal pain: (2) Jejunal inflammation: (3) Gastric wall thickening: Plan Abdominal pain, nausea, alternating constipation and diarrhea, and imaging demonstrating gastric and jejunal thickening raise concern for IBD vs IBS. Patient reports understanding of risks and benefits of upper and lower endoscopy with biopsies and is agreeable to proceed. Will plan for EGD and colonoscopy with biopsies tomorrow. Consult Attestations Medical Necessity Statement: Patient requires hospitalization for symptom control and diagnostic EGD and colonoscopy. Coding Level of Care Code New Pt Acute Manager Print for Chg Fwd Patient Type New History Comprehensive Exam Comprehensive Medical Decision Making High Complexity Diagnoses Abdominal pain R10.9 Jejunal inflammation K52.9 Gastric wall thickening K31.89
[2022-08-27] MEDS: oxyCODONE-APAP 5-325 mg Tablet 1 TAB PO (15:48)
[2022-08-27] MEDS: enoxaparin 40 mg/0.4 mL Syringe SUBCUT (17:01)
[2022-08-27] MEDS: pantoprazole 40 mg SDV IVP (17:03)
[2022-08-28] VITALS (10 sets, daily range): BP systolic 95–110; BP diastolic 57–65; PULSE 50–81; RESP 16–23; TEMP 36.7–36.9; O2SAT 94–99
--- NOTE | 2022-08-28 00:05 | PC.NURSE ---
Referred pt to Dr. Cates d/t orders for EGD and Colonscopy in the am w/o orders for bowel prep. Will await orders from hospitalist.
[2022-08-28] MEDS: sodium chloride 0.9% 1,000 ML 125 ML IV ×2 (00:52→11:30)
[2022-08-28] MEDS: morphine 4 mg/mL SDV 1 mL 2 MG IVP ×3 (00:56→20:11)
[2022-08-28] MEDS: metroNIDAZOLE IV 500 MG/100 ML PREMIX 100 MG IV ×3 (01:41→19:01)
[2022-08-28] MEDS: ondansetron 2 mg/ML SDV 2 mL 4 MG IVP ×3 (03:43→17:44)
[2022-08-28 05:30] LABS: Basophils % 0.2 %; Eosinophils % 0.1 %; Hematocrit 39.1 % (37.0-47.0); Hemoglobin 11.6 g/dL (11.5-15.3); Lymphocytes % 33.2 %; Mean Corpuscular HGB Conc 29.7 g/dL (30.0-36.0); Mean Corpuscular Hemoglobin 25.6 pg (28.0-34.0); Mean Corpuscular Volume 86.1 fl (81-99); Mean Platelet Volume 9.7 fL (7.4-10.4); Monocytes # 0.6 10^3/uL (0.2-0.9); Monocytes % 6.5 %; Neutrophils # 5.46 10^3/uL (1.8-7.7); Neutrophils % 59.6 %; Nucleated Red Blood Cells % 0 %; Platelet Count 436 10^3/cmm (130-400); Red Blood Count 4.54 10^6/uL (4.1-5.3); Red Cell Distribution Width 14.1 % (12.1-15.1); White Blood Count 9.2 10^3/uL (4.0-10.0)
[2022-08-28 05:52] LABS: Alanine Aminotransferase 12 U/L (0-33); Albumin Level 4.2 g/dL (3.5-5.2); Alkaline Phosphatase 68 U/L (35-105); Aspartate Amino Transferase 9 U/L (0-32); Blood Urea Nitrogen 3 mg/dL (6-20); Carbon Dioxide 16 mmol/L (22-29); Chloride 105 mmol/L (98-107); Globulin 2.8 g/dL (1.3-4.6); Glomerular Filtration Rate 187.4 mL/min (90-130); Glucose 61 mg/dL (65-115); Osmolality Calculated 280 mOsm/kg (285-295); Sodium 138 mmol/L (136-145); Total Bilirubin 0.3 mg/dL (0.15-1.2)
--- NOTE | 2022-08-28 08:08 | P.PN_ITS ---
Subjective Subjective: No acute events overnight. No bowel prep ordered nor administered. Patient reports improvement in abdominal pain until after drinking some water this morning, which worsened her abdominal pain. Medications: Medication Review Details: Generic Name Dose Route Start Last Admin Trade Name Jeff PRN Reason Stop Dose Admin Acetaminophen 650 mg 08/26/22 18:12 08/27/22 10:36 Acetaminophen 32 5 Mg Tablet PO 650 mg Q6H PRN Administration Mild/Mod Pain Or Temp >/= 101 Enoxaparin Sodium 40 mg 08/26/22 18:30 08/26/22 18:41 Enoxaparin 40 Mg /0.4 Ml Syringe SUBCUT 40 mg Q24H ROBBI Administration Sodium Chloride 1,000 mls @ 125 m ls/hr 08/26/22 18:15 08/27/22 05:40 Sodium Chloride 0.9% IV 125 mls/hr .Q8H ROBBI Administration Metronidazole 500 mg in 100 mls @ 100 mls/hr 08/26/22 18:30 08/27/22 12:00 Flagyl Iv IV Infused Q8H [facility] Infusion Protocol Ciprofloxacin/Dext juan antonio 200 mg in 100 mls @ 100 mls/hr 08/26/22 18:25 08/27/22 13:35 Cipro IV Infused BID [facility] Infusion Protocol Methylprednisolone Sodium Succinate 40 mg 08/26/22 19:00 08/27/22 10:22 Methylprednisolo ne Sod Succ 40 Mg/ Ml Inj IVP 40 mg BID ROBBI Administration Metoclopramide HCl 5 mg 08/26/22 18:14 08/27/22 05:47 Metoclopramide 5 Mg/Ml Sdv 2 Ml IVP 5 mg Q6H PRN Administration nausea Morphine Sulfate 2 mg 08/26/22 18:12 08/27/22 00:47 Morphine 4 Mg/Ml Sdv 1 Ml IVP 2 mg Q4H PRN Administration SEVERE PAIN Pantoprazole Sodiu m 40 mg 08/26/22 18:15 08/26/22 22:45 Pantoprazole 40 Mg Sdv IVP Not Given Q24H [facility] Vitals/I&O/Wt Last Vital Signs Temp 98.2 F 08/28/22 04:00 Pulse 71 08/28/22 04:00 Resp 23 H 08/28/22 04:00 BP 110/62 08/28/22 04:00 Pulse Ox 95 08/28/22 04:00 O2 Del Method 08/27/22 16:00 08/27/22 08/28/22 08/28/22 22:59 06:59 14:59 Intake Total 200 / 1400 1100.00 / 2500.00 Balance 200 / 1400 1100.00 / 2500.00 Weight last 48 hrs Weight 136 lb Physical Exam Const: COMMON NORMALS: average body habitus, patient oriented x3, healthy appearing and alert GENERAL APPEARANCE: cooperative and other (holding abd with arms, wincing) ORIENTATION/CONSCIOUSNESS: Yes awake, Yes oriented to person, Yes oriented to place and Yes oriented to time HENMT: COMMON NORMALS: normocephalic, atraumatic, external ears normal, Normal external nose present and moist oral mucous membranes HEAD & SCALP: normocephalic and atraumatic NOSE: Normal external nose present EXTERNAL EAR: Yes external ears normal Eye: COMMON NORMALS: EOMs intact bilaterally and no scleral icterus GENERAL EYE: appearance normal, both eyes and all related structures and no exophthalmos Neck/C-Spine: COMMON NORMALS: full ROM, supple and no JVD GENERAL: Yes normal visual inspection Resp: COMMON NORMALS: normal respiratory effort, No retractions and No use of accessory muscles EFFORT & INSPECTION: Yes able to speak in complete sentences and Yes symmetric chest movement Cardio: COMMON NORMALS: no JVD, regular rate and regular rhythm RATE: regular rate RHYTHM: regular rhythm PERIPHERAL PULSES: radial pulses present GI: COMMON NORMALS: Soft to palpation and no masses INSPECTION: Yes normal to inspection, No abdominal distension and Yes scar (surgical, well healed) PALPATION: Yes Soft to palpation, Yes Tenderness to palpation present (GI) (diffusely), No Guarding due to palpation present (GI), No Rigid due to palpation, No Hernia present and No Rebound tenderness present RECTAL EXAM: deferred : EXTERNAL FEMALE EXAM: No Hernia present Extremity: COMMON NORMALS: normal to inspection and full ROM Neuro: COMMON NORMALS: patient oriented x3, CN's II-XII intact bilaterally, moves all extremities, no focal motor deficits and no sensory deficits noted SENSORIUM/ORIENTATION: Yes alert, Yes oriented to person, Yes oriented to place and Yes oriented to time Psych: COMMON NORMALS: mental status grossly normal, Normal thought process present, cooperative, normal affect and activity/motor behavior normal THOUGHT PROCESS: Normal thought process present Skin: COMMON NORMALS: no rashes or lesions noted, no wounds, turgor normal and no jaundice GENERAL SKIN EXAM: no rashes or lesions noted and turgor normal Data 08/28/22 04:36 08/28/22 04:36 A&P Assessment and plan (1) Abdominal pain: (2) Jejunal inflammation: (3) Gastric wall thickening: Plan Abdominal pain, nausea, alternating constipation and diarrhea, and imaging demonstrating gastric and jejunal thickening raise concern for IBD vs IBS. Abdominal pain worse with PO intake. Patient reports understanding of risks and benefits of upper and lower endoscopy with biopsies and is agreeable to proceed. Will plan for EGD and colonoscopy with biopsies tomorrow after bowel prep this afternoon. Attestations Medical Necessity Statement*: Patient requires inpatient care for symptom control and diagnostic upper and lower endoscopy. Coding Level of Care Code Established Pt Acute Supervisor [employer]s for Chg Fwd Patient Type Established History Expanded Problem Focused Exam Expanded Problem Focused Medical Decision Making Moderate Complexity Diagnoses Abdominal pain R10.9 Jejunal inflammation K52.9 Gastric wall thickening K31.89
[2022-08-28] MEDS: ciprofloxacin 200 MG/100 ML PREMIX 100 MG IV ×2 (08:41→17:44)
[2022-08-28] MEDS: bisacodyl 5 mg Tablet 10 MG PO (08:41)
[2022-08-28] MEDS: pantoprazole 40 mg SDV IVP ×2 (11:07→20:15)
[2022-08-28 11:35] LABS: CENTROMERE B ANTIBODY <1.0 NEG AI (<1.0 NEG); JO-1 ANTIBODY <1.0 NEG AI (<1.0 NEG); RNP ANTIBODY <1.0 NEG AI (<1.0 NEG); SCL-70 ANTIBODY <1.0 NEG AI (<1.0 NEG); SJOGREN'S ANTIBODY (SS-A) <1.0 NEG AI (<1.0 NEG); SM ANTIBODY <1.0 NEG AI (<1.0 NEG); SS-B <1.0 NEG AI (<1.0 NEG)
[2022-08-28] MEDS: peg /e-lyte soln 4,000 mL Btl 4000 ML PO (12:42)
[2022-08-28 13:09] LABS: COMPLEMENT COMPONENT C3C 144 mg/dL (83-193); COMPLEMENT COMPONENT C4C 24 mg/dL (15-57)
[2022-08-28 13:13] LABS: Cyclic Citrullinated Peptide <16 UNITS
[2022-08-28] MEDS: metoclopramide 5 mg/mL SDV 2 mL IVP (13:34)
[2022-08-28 14:29] LABS: COMPLEMENT, TOTAL (CH50) 56 U/mL (31-60)
[2022-08-28 15:14] LABS: THYROID PEROXIDASE ANTIBODIES <1 IU/mL (<9)
--- NOTE | 2022-08-28 17:18 | PM.PN ---
Subjective Subjective: Patient was seen and examined this morning, continue to complain of abdominal pain, with slight improvement in dry heaves, complaint of abdominal pain with oral intake. Medications: Medication Review Details: Generic Name Dose Route Start Last Admin Trade Name Freq PRN Reason Stop Dose Admin Acetaminophen 650 mg 08/26/22 18:12 08/27/22 10:36 Acetaminophen 32 5 Mg Tablet PO 650 mg Q6H PRN Administration Mild/Mod Pain Or Temp >/= 101 Enoxaparin Sodium 40 mg 08/26/22 18:30 08/27/22 17:01 Enoxaparin 40 Mg /0.4 Ml Syringe SUBCUT 40 mg Q24H ROBBI Administration Sodium Chloride 1,000 mls @ 125 m ls/hr 08/26/22 18:15 08/28/22 11:30 Sodium Chloride 0.9% IV 125 mls/hr .Q8H ROBBI Administration Metronidazole 500 mg in 100 mls @ 100 mls/hr 08/26/22 18:30 08/28/22 12:42 Flagyl Iv IV Infused Q8H [facility] Infusion Protocol Ciprofloxacin/Dext juan antonio 200 mg in 100 mls @ 100 mls/hr 08/26/22 18:25 08/28/22 11:04 Cipro IV Infused BID [facility] Infusion Protocol Methylprednisolone Sodium Succinate 40 mg 08/26/22 19:00 08/28/22 08:40 Methylprednisolo ne Sod Succ 40 Mg/ Ml Inj IVP 40 mg BID ROBBI Administration Metoclopramide HCl 5 mg 08/26/22 18:14 08/28/22 13:34 Metoclopramide 5 Mg/Ml Sdv 2 Ml IVP 5 mg Q6H PRN Administration nausea Morphine Sulfate 2 mg 08/26/22 18:12 08/28/22 08:55 Morphine 4 Mg/Ml Sdv 1 Ml IVP 2 mg Q4H PRN Administration SEVERE PAIN Ondansetron HCl 4 mg 08/27/22 11:30 08/28/22 11:07 Ondansetron 2 Mg /Ml Sdv 2 Ml IVP 4 mg Q6H ROBBI Administration Oxycodone/Acetamin ophen 1 tab 08/26/22 18:12 08/27/22 15:48 Oxycodone-Apap 5 -325 Mg Tablet PO 1 tab Q4H PRN Administration SEVERE PAIN Pantoprazole Sodiu m 40 mg 08/28/22 09:15 08/28/22 11:07 Pantoprazole 40 Mg Sdv IVP 40 mg Q12H ROBBI Administration Vitals/I&O/Wt Last Vital Signs Temp 98.2 F 08/28/22 12:00 Pulse 81 08/28/22 12:00 Resp 18 08/28/22 12:00 BP 102/58 08/28/22 12:00 Pulse Ox 97 08/28/22 12:00 O2 Del Method 08/28/22 12:00 08/28/22 08/28/22 08/28/22 06:59 14:59 22:59 Intake Total 1100.00 / 2500.00 1680 / 1680 Balance 1100.00 / 2500.00 1680 / 1680 Physical Exam Const: COMMON NORMALS: patient oriented x3 Resp: COMMON NORMALS: clear to auscultation bilaterally AUSCULTATION: clear to auscultation bilaterally Cardio: COMMON NORMALS: regular rate, regular rhythm, S1 normal heart sound present, S2 normal heart sound present, No gallops present (Cardio), No murmurs present (Cardio), No rub (Cardio) and Peripheral pulses 2+ throughout RATE: regular rate RHYTHM: regular rhythm HEART SOUNDS: S1 normal heart sound present and S2 normal heart sound present PERIPHERAL PULSES: Peripheral pulses 2+ throughout GI: COMMON NORMALS: Normal to inspection, nondistended, normoactive bowel sounds present, Soft to palpation, non-tender, No hepatosplenomegaly present and no masses AUSCULTATION: Yes normoactive bowel sounds PALPATION: Yes Soft to palpation and Yes No hepatosplenomegaly present RECTAL EXAM: deferred Extremity: COMMON NORMALS: no clubbing, cyanosis or edema and no pedal edema Neuro: COMMON NORMALS: patient oriented x3 Data 08/28/22 04:36 08/28/22 04:36 Micro: Microbiology 08/28/22 04:15 C.difficile Toxin B Gene (PCR) - Final Stool 08/28/22 04:15 Parasite Antigen Panel - Final Stool 08/28/22 04:15 Enteric Pathogens (PCR) - Final Stool A&P Assessment and plan (1) Abdominal pain: (2) Jejunal inflammation: (3) Gastric wall thickening: Plan 32 year old female with no significant past medical history came in with chief complaint of Generalized abdominal pain, dry heaves, no vomiting, along with constipation with alternating diarrhea, with, predominantly a lot of mucus in the stool, as well as recently has also noted some blood in stool ,going on for the last 10 days, she has history of similar Recurrent abdominal pain going on for the last few years, this episode is significantly worse than the prior ones, Prior episodes usually last for few days and resolves spontaneously with tylenol, as well as some antispasmodic medications.Currently she has denied any rash, though she has complained of longstanding joint pain predominantly knee and elbow joint pain, denied any oral ulcers, visual disturbances, eye pain, sick contact, unusual food recently. Assessment: Abdominal pain: Hypokalemia Possible gastritis Possible jejunitis Based on her clinical history, it seems like she may be having IBD/possible IBS/possible microscopic colitis though she has denied any PPI use, and also do not fall in classic age group/ though she has denied Significant important findings as mentioned in HPI, will have to rule out other possible causes of abdominal pain Including gastritis. Currently we will keep patient on IV antiemetics, IV hydration, pain control, thinking the possibility of IBD flare though less likely, will keep her on a trial of IV steroids, as well as IV antibiotics. We will consider colonoscopy as well as EGD. Follow stool's C. difficile, enteric bacterial pathogen, stool for ova and chest, stool lactoferrin, RYAN profile, Rheumatoid factor: 10 Anti-CCP: Plan for today: Continue with IV hydration, steroids, IV antibiotics, patient is due for EGD and colonoscopy tomorrow. N.p.o. from midnight CODE STATUS: Full code DVT prophylaxis: On Lovenox Attestations Medical Necessity Statement*: Needs to be in hospital for abdominal pain. Coding Level of Care Code Acute [employer] Officer for Chg Fwd Diagnoses Abdominal pain R10.9 Jejunal inflammation K52.9 Gastric wall thickening K31.89
[2022-08-28] MEDS: sodium chloride 0.9% 1,000 ML 30 ML IV (17:42)
[2022-08-28] MEDS: enoxaparin 40 mg/0.4 mL Syringe SUBCUT (17:45)
--- NOTE | 2022-08-28 21:50 | PC.NURSE ---
pt received a new order today for NS at 30ml/hr by Dr. Cerda and her previous order was NS at 125ml/hr by Dr. Ruffin both orders are on the MAR notified Dr. Cates for clarification and she ordered to continue the NS at 125ml/hr that was originally ordered by Dr. Ruffin.
[2022-08-29] VITALS (11 sets, daily range): BP systolic 93–160; BP diastolic 53–86; PULSE 57–107; RESP 16–22; TEMP 36.7–36.9; O2SAT 94–100
[2022-08-29] MEDS: ondansetron 2 mg/ML SDV 2 mL 4 MG IVP ×4 (00:30→13:25)
[2022-08-29] MEDS: sodium chloride 0.9% 1,000 ML 125 ML IV (00:33)
[2022-08-29] MEDS: metroNIDAZOLE IV 500 MG/100 ML PREMIX 100 MG IV ×3 (02:26→20:27)
[2022-08-29 04:31] LABS: Basophils % 0.3 %; Hematocrit 37.6 % (37.0-47.0); Hemoglobin 11.1 g/dL (11.5-15.3); Lymphocytes % 38.1 %; Mean Corpuscular HGB Conc 29.5 g/dL (30.0-36.0); Mean Corpuscular Hemoglobin 25.9 pg (28.0-34.0); Mean Corpuscular Volume 87.9 fl (81-99); Mean Platelet Volume 9.8 fL (7.4-10.4); Monocytes # 0.5 10^3/uL (0.2-0.9); Monocytes % 6.4 %; Neutrophils # 4.36 10^3/uL (1.8-7.7); Neutrophils % 54.9 %; Nucleated Red Blood Cells % 0 %; Platelet Count 417 10^3/cmm (130-400); Red Blood Count 4.28 10^6/uL (4.1-5.3); Red Cell Distribution Width 14.3 % (12.1-15.1); White Blood Count 7.9 10^3/uL (4.0-10.0)
[2022-08-29 04:50] LABS: Alanine Aminotransferase 11 U/L (0-33); Albumin Level 3.8 g/dL (3.5-5.2); Alkaline Phosphatase 60 U/L (35-105); Anion Gap 21.9 (5-19); Aspartate Amino Transferase 9 U/L (0-32); Blood Urea Nitrogen 5 mg/dL (6-20); Calcium 8.8 mg/dL (8.5-10.5); Carbon Dioxide 15 mmol/L (22-29); Chloride 106 mmol/L (98-107); Globulin 2.6 g/dL (1.3-4.6); Glomerular Filtration Rate 187.4 mL/min (90-130); Glucose 70 mg/dL (65-115); Osmolality Calculated 284 mOsm/kg (285-295); Potassium 3.9 mmol/L (3.5-5.1); Sodium 139 mmol/L (136-145); Total Bilirubin 0.2 mg/dL (0.15-1.2); Total Protein 6.4 g/dL (6.6-8.7)
[2022-08-29] MEDS: sodium chloride 0.9% 1,000 ML 30 ML IV (06:45)
--- NOTE | 2022-08-29 08:02 | P.ANESASSM_ITS ---
Pre-Anesthetic Assessment Height/Weight: Height 1.5 m Weight 61.689 kg Temp Pulse Resp BP Pulse Ox O2 Del Method O2 Flow Rate 98.5 F 57 L 18 160/80 100 3 08/29/22 07:33 08/29/22 07:50 08/29/22 07:50 08/29/22 07:50 08/29/22 07:50 08/29/22 07:50 08/29/22 07:33 Preop Diagnosis: high grade dysplasia of cervix, chronic pelvic pain Operation Date: 08/29/22 07:00 Proposed Procedures p EGD(Not Applicable) - Maxim Cerda MD s Colonoscopy(Not Applicable) - Maxim Cerda MD Familial anesthetic complications: PONV Was Beta Erin taken within 24 hours: N/A Was Clonidine taken within 24 hours: N/A Social No alcohol and No tobacco Exam alert, oriented x 3, clear to auscultation bilaterally and regular rate & rhythm Airway Submandibular: within normal limits Cervical ROM: within normal limits Mallampati: Class II Dentition: chipped GI abdominal pain Neuropsych Anxiety and Depression Anesthetic Plan ASA status: 2 Anesthesia: MAC Medications/Allergies Home Medications Medication Instructions Recorded Confirmed Last Taken Type loratadine 10 mg tablet (Claritin) 10 mg PO DAILY 11/15/20 08/26/22 2 Weeks Ago History ~08/12/22 triamcinolone acetonide 55 mcg 2 spray intranasal DAILY 08/06/22 08/26/22 2 We eks Ago History nasal spray aerosol (Nasacort) ~08/12/22 Dayquil Caps 2 cap PO .ONCE TODAY 08/26/22 08/26/22 08/26/22 07:00 History acetaminophen 500 mg tablet 1,000 mg PO Q6H PRN Pain 08/26/22 08/26/22 Unknown History hydrocodone 5 mg-acetaminophen 325 1 tab PO Q8H PRN Pain 08/26/22 08/26/22 1 Week Ago History mg tablet ~08/19/22 ondansetron 8 mg disintegrating 8 mg PO Q8H PRN Nausea And Vomiting 08/26/22 08/26/22 Unknown History tablet Allergies Allergy/AdvReac Type Severity Reaction Status Date / Time azithromycin AdvReac vomiting Verified 08/26/22 12:32 cefprozil [From Cefzil] AdvReac rash and Verified 08/26/22 12:32 hives Sulfa (Sulfonamide AdvReac unknown Verified 08/26/22 12:32 Antibiotics) Current Medications Generic Name Dose Route Start Last Admin Trade Name Frerachel PRN Reason Stop Dose Admin Acetaminophen 650 mg 08/26/22 18:12 08/27/22 10:36 Acetaminophen 325 Mg Tablet PO 650 mg Q6H PRN Administration Mild/Mod Pain Or Temp >/= 101 Enoxaparin Sodium 40 mg 08/26/22 18:30 08/28/22 17:45 Enoxaparin 40 Mg/0.4 Ml Syringe SUBCUT 40 mg Q24H ROBBI Administration Sodium Chloride 1,000 mls @ 125 mls/hr 08/26/22 18:15 08/29/22 00:33 Sodium Chloride 0.9% IV 125 mls/hr .Q8H ROBBI Administration Metronidazole 500 mg in 100 mls @ 100 mls/hr 08/26/22 18:30 08/29/22 03:45 Flagyl Iv IV Infused Q8H ROBBI Infusion Protocol Ciprofloxacin/Dextrose 200 mg in 100 mls @ 100 mls/hr 08/26/22 18:25 08/28/22 18:50 Cipro IV Infused BID ROBBI Infusion Protocol Sodium Chloride 1,000 mls @ 30 mls/hr 08/29/22 06:45 08/29/22 06:45 Sodium Chloride 0.9% IV 08/30/22 06:44 30 mls/hr .Q24H ROBBI Administration Methylprednisolone Sodium Succinate 40 mg 08/26/22 19:00 08/28/22 17:40 Methylprednisolone Sod Succ 40 Mg/Ml Inj IVP 40 mg BID ROBBI Administration Metoclopramide HCl 5 mg 08/26/22 18:14 08/28/22 13:34 Metoclopramide 5 Mg/Ml Sdv 2 Ml IVP 5 mg Q6H PRN Administration nausea Morphine Sulfate 2 mg 08/26/22 18:12 08/28/22 20:11 Morphine 4 Mg/Ml Sdv 1 Ml IVP 2 mg Q4H PRN Administration SEVERE PAIN Ondansetron HCl 4 mg 08/28/22 17:21 08/29/22 00:30 Ondansetron 2 Mg/Ml Sdv 2 Ml IVP 4 mg Q6H PRN Administration nausea Ondansetron HCl 4 mg 08/29/22 06:34 08/29/22 07:50 Ondansetron 2 Mg/Ml Sdv 2 Ml IVP 4 mg Q15M PRN Administration Nausea/Vomiting PACU PHASE II Oxycodone/Acetaminophen 1 tab 08/26/22 18:12 08/27/22 15:48 Oxycodone-Apap 5-325 Mg Tablet PO 1 tab Q4H PRN Administration SEVERE PAIN Pantoprazole Sodium 40 mg 08/28/22 09:15 08/28/22 20:15 Pantoprazole 40 Mg Sdv IVP 40 mg Q12H ROBBI Administration Sucralfate 1 gm 08/29/22 07:00 08/29/22 06:12 Sucralfate 1 Gm Tablet PO Not Given BIDAC ROBBI PFSH Anesthesia Medical History Abscess Anxiety Depression Surgical History H/O: hysterectomy Hx of section 09/20/2014: Performed in [facility]. Operative report---> primary low transverse delivery with double layer closure and no extensions. Hx of cholecystectomy Hx of laparoscopy Done on 09/10/[address] Cook at [facility] for pelvic pain--laparoscopy with lysis of adheions and Nexplanon removal. At time of surgery a single area of omental adhesions onto the bladder was noted which was taken down. No sign of endometriosis.. Hx of tonsillectomy Family History Father Hypertension Family/Other Ovarian cancer maternal great grandmother, maternal grandmother and paternal grandmother. She states that all of these women have had hysterectomies however she is not sure about the diagnosis of ovarian cancer... Diabetes Paternal Aunt Thyroid disease Paternal aunt Mother Hypertension Cervical cancer dx --unknown age Grandmother Stroke Paternal Colon cancer Paternal--dx age unknown Ovarian cancer Maternal--dx age unknown Grandfather Stroke Paternal Denies family history of Heart disease Hyperlipidemia Breast cancer Uterine cancer Female Reproductive History Spontaneous abortions: No Data Anesthesia 08/29/22 04:15 08/29/22 04:15 Short CBC 08/28/22 08/29/22 Range/Units 04:36 04:15 WBC 9.2 7.9 (4.0-10.0) 10^3/uL Hgb 11.6 11.1 L (11.5-15.3) g/dL Hct 39.1 37.6 (37.0-47.0) % MCV 86.1 87.9 (81-99) fl Plt Count 436 H 417 H (130-400) 10^3/cmm Neut % (Auto) 59.6 54.9 % Neut # (Auto) 5.46 4.36 (1.8-7.7) 10^3/uL BMP 08/28/22 08/29/22 04:36 04:15 Sodium 138 139 Potassium 4.0 3.9 Chloride 105 106 Carbon Dioxide 16 L 15 L BUN 3 L 5 L Creatinine 0.4 L 0.4 L Glucose 61 L 70 Calcium 9.0 8.8 Liver Function 08/28/22 08/29/22 Range/Units 04:36 04:15 Total Bilirubin 0.3 0.2 (0.15-1.2) mg/dL AST 9 9 (0-32) U/L ALT 12 11 (0-33) U/L Alkaline Phosphatase 68 60 (35-105) U/L Albumin 4.2 3.8 (3.5-5.2) g/dL Coags 08/27/22 00:57 ESR Cancelled Microbiology 08/28/22 04:15 C.difficile Toxin B Gene (PCR) - Final Stool 08/28/22 04:15 Parasite Antigen Panel - Final Stool 08/28/22 04:15 Enteric Pathogens (PCR) - Final Stool Cardiac Studies: No Data to Display
--- NOTE | 2022-08-29 08:03 | ANE.PACU2 ---
Inpatient post-anesthesia follow up: Airway intact: Yes Vital signs: Temperature 98.5 F Pulse Rate 57 Respiratory Rate 18 Blood Pressure 160/80 Pulse Oximetry 100 Oxygen Delivery Me thod Room Air Oxygen Flow Rate 3 Fraction of Inspir ed Oxygen Hydration adequate: Yes Nausea and vomiting: No Pain level: 2 Mental status: Baseline
--- NOTE | 2022-08-29 08:39 | P.PN_ITS ---
Subjective Subjective: Successful prep overnight. Upper and Lower Endoscopy this morning. Vitals/I&O/Wt Last Vital Signs Temp 98.5 F 08/29/22 07:33 Pulse 60 08/29/22 08:06 Resp 18 08/29/22 08:06 BP 109/86 08/29/22 08:06 Pulse Ox 99 08/29/22 08:06 O2 Del Method 08/29/22 08:06 O2 Flow Rate 3 08/29/22 07:33 08/28/22 08/29/22 08/29/22 22:59 06:59 14:59 Intake Total 1220.833 / 2900.833 100 / 3000.833 1000 / 1000 Balance 1220.833 / 2900.833 100 / 3000.833 1000 / 1000 Physical Exam Const: COMMON NORMALS: average body habitus, patient oriented x3, healthy appearing and alert GENERAL APPEARANCE: cooperative and other (holding abd with arms, wincing) ORIENTATION/CONSCIOUSNESS: Yes awake, Yes oriented to pe rson, Yes oriented to place and Yes oriented to time HENMT: COMMON NORMALS: normocephalic, atraumatic, external ears normal, Normal external nose present and moist oral mucous membranes HEAD & SCALP: normocephalic and atraumatic NOSE: Normal external nose present EXTERNAL EAR: Yes external ears normal Eye: COMMON NORMALS: EOMs intact bilaterally and no scleral icterus GENERAL EYE: appearance normal, both eyes and all related structures and no exophthalmos Neck/C-Spine: COMMON NORMALS: full ROM, supple and no JVD GENERAL: Yes normal visual inspection Resp: COMMON NORMALS: normal respiratory effort, No retractions and No use of accessory muscles EFFORT & INSPECTION: Yes able to speak in complete sentences and Yes symmetric chest movement Cardio: COMMON NORMALS: no JVD, regular rate and regular rhythm RATE: regular rate RHYTHM: regular rhythm PERIPHERAL PULSES: radial pulses pr esent GI: COMMON NORMALS: Soft to palpation and no masses INSPECTION: Yes normal to inspection, No abdominal distension and Yes scar (surgical, well healed) PALPATION: Yes Soft to palpation, Yes Tenderness to palpation present (GI) (diffusely), No Guarding due to palpation present (GI), No Rigid due to palpation, No Hernia present and No Rebound tenderness present RECTAL EXAM: deferred : EXTERNAL FEMALE EXAM: No Hernia present Extremity: COMMON NORMALS: normal to inspection and full ROM Neuro: COMMON NORMALS: patient oriented x3, CN's II-XII intact bilaterally, moves all extremities, no focal motor deficits and no sensory deficits noted SENSORIUM/ORIENTATION: Yes alert, Yes oriented to person, Yes oriented to place and Yes oriented to time Psych: COMMON NORMALS: mental status grossly normal, Normal thought process present, cooperative, normal affect and activity/motor behavior normal THOUGHT PROCESS: Normal thought process present Skin: COMMON NORMALS: no rashes or lesions noted, no wounds, turgor normal and no jaundice GENERAL SKIN EXAM: no rashes or lesions noted and turgor normal Data 08/29/22 04:15 08/29/22 04:15 Micro: Microbiology 08/28/22 04:15 C.difficile Toxin B Gene (PCR) - Final Stool 08/28/22 04:15 Parasite Antigen Panel - Final Stool 08/28/22 04:15 Enteric Pathogens (PCR) - Final Stool A&P Assessment and plan (1) Abdominal pain: (2) Jejunal inflammation: (3) Gastric wall thickening: Plan Abdominal pain, nausea, alternating constipation and diarrhea, and imaging demonstrating gastric and jejunal thickening raise concern for IBD vs IBS. Abdominal pain worse with PO intake. EGD this morning grossly normal, biopsies pending. Unable to complete colonoscopy due to tortuous sigmoid colon, perhaps tethered by intraabdominal adhesions. Mucosa visualized during sigmoidoscopy grossly normal, biopsies pending. From surgical perspective, may resume diet and stable for discharge. Attestations Medical Necessity Statement*: Required ongoing admission for upper and lower endoscopy Coding Level of Care Code Acute Retail Store Assistant for [facility] Fwd Diagnoses Abdominal pain R10.9 Jejunal inflammation K52.9 Gastric wall thickening K31.89
--- NOTE | 2022-08-29 09:55 | PC.NURSE ---
0845 patient returned to room 251 bed 2 from GI lab patient having severe nausea and passing large amounts of flatus and having large liquid foamy stools. patient educated that this can be normal after GI scopes. patient in bathroom 40 min and tearful and c/o of abdominal pain. 0945 Dr Cerda notified that patient had no transfer orders from GI lab, recieved diet order and asked to contact hospitalist to resume orders. Dr Isabel notified. Also instructed to let hospitalists know that from GI standpoint patient could dc this afternoon.
[2022-08-29] MEDS: oxyCODONE-APAP 5-325 mg Tablet 1 TAB PO ×2 (11:30→21:08)
[2022-08-29] MEDS: morphine 4 mg/mL SDV 1 mL 2 MG IVP (13:24)
--- NOTE | 2022-08-29 15:49 | PM.PN ---
Subjective Subjective: Patient was seen and examined this morning, continue to complain of abdominal pain. Medications: Medication Review Details: Generic Name Dose Route Start Last Admin Trade Name Freq PRN Reason Stop Dose Admin Acetaminophen 650 mg 08/26/22 18:12 08/27/22 10:36 Acetaminophen 32 5 Mg Tablet PO 650 mg Q6H PRN Administration Mild/Mod Pain Or Temp >/= 101 Enoxaparin Sodium 40 mg 08/26/22 18:30 08/28/22 17:45 Enoxaparin 40 Mg /0.4 Ml Syringe SUBCUT 40 mg Q24H ROBBI Administration Sodium Chloride 1,000 mls @ 125 m ls/hr 08/26/22 18:15 08/29/22 00:33 Sodium Chloride 0.9% IV 125 mls/hr .Q8H ROBBI Administration Metronidazole 500 mg in 100 mls @ 100 mls/hr 08/26/22 18:30 08/29/22 14:53 Flagyl Iv IV Infused Q8H ROBBI Infusion Protocol Ciprofloxacin/Dext juan antonio 200 mg in 100 mls @ 100 mls/hr 08/26/22 18:25 08/28/22 18:50 Cipro IV Infused BID ROBBI Infusion Protocol Sodium Chloride 1,000 mls @ 30 ml s/hr 08/29/22 06:45 08/29/22 06:45 Sodium Chloride 0.9% IV 08/30/22 06:44 30 mls/hr .Q24H ROBBI Administration Metoclopramide HCl 5 mg 08/26/22 18:14 08/28/22 13:34 Metoclopramide 5 Mg/Ml Sdv 2 Ml IVP 5 mg Q6H PRN Administration nausea Morphine Sulfate 2 mg 08/26/22 18:12 08/29/22 13:24 Morphine 4 Mg/Ml Sdv 1 Ml IVP 2 mg Q4H PRN Administration SEVERE PAIN Ondansetron HCl 4 mg 08/28/22 17:21 08/29/22 13:25 Ondansetron 2 Mg /Ml Sdv 2 Ml IVP 4 mg Q6H PRN Administration nausea Ondansetron HCl 4 mg 08/29/22 06:34 08/29/22 07:55 Ondansetron 2 Mg /Ml Sdv 2 Ml IVP 4 mg Q15M PRN Administration Nausea/Vomiting P ACU PHASE II Oxycodone/Acetamin ophen 1 tab 01/04/23 18:12 08/29/22 11:30 Oxycodone-Apap 5 -325 Mg Tablet PO 1 tab Q4H PRN Administration SEVERE PAIN Pantoprazole Sodiu m 40 mg 08/28/22 09:15 08/28/22 20:15 Pantoprazole 40 Mg Sdv IVP 40 mg Q12H ROBBI Administration Sucralfate 1 gm 08/29/22 07:00 08/29/22 06:12 Sucralfate 1 Gm Tablet PO Not Given BIDAC ROBBI Vitals/I&O/Wt Last Vital Signs Temp 98.2 F 08/29/22 12:00 Pulse 107 H 08/29/22 12:00 Resp 18 08/29/22 13:24 BP 132/81 08/29/22 12:00 Pulse Ox 94 08/29/22 12:00 O2 Del Method 08/29/22 12:00 O2 Flow Rate 3 08/29/22 07:33 08/29/22 08/29/22 08/29/22 06:59 14:59 22:59 Intake Total 100 / 3000.833 1115 / 1115 Balance 100 / 3000.833 1115 / 1115 Physical Exam Const: COMMON NORMALS: patient oriented x3 Resp: COMMON NORMALS: clear to auscultation bilaterally AUSCULTATION: clear to auscultation bilaterally Cardio: COMMON NORMALS: regular rate, regular rhythm, S1 normal heart sound present, S2 normal heart sound present, No gallops present (Cardio), No murmurs present (Cardio), No rub (Cardio) and Peripheral pulses 2+ throughout RATE: regular rate RHYTHM: regular rhythm HEART SOUNDS: S1 normal heart sound present and S2 normal heart sound present PERIPHERAL PULSES: Peripheral pulses 2+ throughout GI: COMMON NORMALS: Normal to inspection, nondistended, normoactive bowel sounds present, No hepatosplenomegaly present and no masses AUSCULTATION: Yes normoactive bowel sounds PALPATION: Yes No hepatosplenomegaly present RECTAL EXAM: deferred OTHER: Diffuse generalized abdominal tenderness present. Extremity: COMMON NORMALS: no clubbing, cyanosis or edema and no pedal edema Neuro: COMMON NORMALS: patient oriented x3 Data 08/29/22 04:15 08/29/22 04:15 Micro: Microbiology 08/28/22 04:15 C.difficile Toxin B Gene (PCR) - Final Stool 08/28/22 04:15 Parasite Antigen Panel - Final Stool 08/28/22 04:15 Enteric Pathogens (PCR) - Final Stool A&P Assessment and plan (1) Abdominal pain: (2) Jejunal inflammation: (3) Gastric wall thickening: Plan 32 year old female with no significant past medical history came in with chief complaint of Generalized abdominal pain, dry heaves, no vomiting, along with constipation with alternating diarrhea, with, predominantly a lot of mucus in the stool, as well as recently has also noted some blood in stool ,going on for the last 10 days, she has history of similar Recurrent abdominal pain going on for the last few years, this episode is significantly worse than the prior ones, Prior episodes usually last for few days and resolves spontaneously with tylenol, as well as some antispasmodic medications.Currently she has denied any rash, though she has complained of longstanding joint pain predominantly knee and elbow joint pain, denied any oral ulcers, visual disturbances, eye pain, sick contact, unusual food recently. Assessment: Abdominal pain: Hypokalemia Possible gastritis Possible jejunitis Based on her clinical history, it seems like she may be having IBD/possible IBS/possible microscopic colitis though she has denied any PPI use, and also do not fall in classic age group/ though she has denied Significant important findings as mentioned in HPI, will have to rule out other possible causes of abdominal pain Including gastritis. Currently we will keep patient on IV antiemetics, IV hydration, pain control, thinking the possibility of IBD flare though less likely, will keep her on a trial of IV steroids, as well as IV antibiotics. C. difficile,: negative, enteric bacterial pathogen: negative , parasitic antigen panel: Negative RYAN profile rheumatology: Negative except for pending anti double-stranded DNA IgG. Rheumatoid factor: 10 , Anti-CCP: negative Stool H. pylori: S/p EGD and colonoscopy: EGD was unremarkable: Limited colonoscopy due to tortuous sigmoid colon, perhaps tethered by intraabdominal adhesions. Mucosa visualized during sigmoidoscopy grossly normal, biopsies pending. Current plan is to discharge patient on Protonix, antiemetics, pain medications, complete 10 days of antibiotic course for possible jejunitis.Follow GI as outpatient.Follow-up on biopsies. Plan for today: Continue IV antibiotics, stop steroids. CODE STATUS: Full code DVT prophylaxis: On Lovenox Attestations Medical Necessity Statement*: Patient is still in hospital for management of abdominal pain. Coding Level of Care Code Acute [employer] Worker for [facility] Fwd Exam Detailed Diagnoses Abdominal pain R10.9 Jejunal inflammation K52.9 Gastric wall thickening K31.89
[2022-08-29] MEDS: sucralfate 1 gm Tablet PO (17:57)
[2022-08-29] MEDS: ciprofloxacin 200 MG/100 ML PREMIX 100 MG IV (17:58)
[2022-08-29] MEDS: pantoprazole 40 mg SDV IVP (20:19)
[2022-08-30] VITALS: BP 99/57; PULSE 60; RESP 16; TEMP 36.7; O2SAT 98
[2022-08-30 04:00] VITALS: BP 108/67; PULSE 78; RESP 16; TEMP 36.8; O2SAT 97
[2022-08-30] MEDS: sucralfate 1 gm Tablet PO (06:01)
[2022-08-30] MEDS: metroNIDAZOLE IV 500 MG/100 ML PREMIX 100 MG IV (06:02)
[2022-08-30] MEDS: ondansetron 2 mg/ML SDV 2 mL 4 MG IVP ×2 (06:07→09:59)
[2022-08-30 07:22] VITALS: RESP 18
[2022-08-30] MEDS: oxyCODONE-APAP 5-325 mg Tablet 1 TAB PO (07:22)
[2022-08-30] MEDS: metoclopramide 5 mg/mL SDV 2 mL IVP (07:22)
[2022-08-30 07:31] VITALS: BP 114/72; PULSE 75; RESP 16; TEMP 36.7; O2SAT 98
[2022-08-30] MEDS: pantoprazole 40 mg SDV IVP (09:11)
[2022-08-30] MEDS: ciprofloxacin 200 MG/100 ML PREMIX 100 MG IV (09:31)
[2022-08-30 09:58] VITALS: RESP 16
[2022-08-30] MEDS: morphine 4 mg/mL SDV 1 mL 2 MG IVP (09:58)
--- NOTE | 2022-08-30 11:40 | P.DS_ITS ---
Discharge Providers Date of Admission: 08/26/22 19:08 Date of Discharge: August 30, 2022 Attending Provider at Admission: Rios Ruffin MD Attending Provider at Discharge: Rios Ruffin MD Diagnoses at Discharge Discharge Diagnosis (1) Abdominal pain: Status: Acute (2) Jejunal inflammation: Status: Acute (3) Gastric wall thickening: Status: Acute Reason for Visit Reason for Visit: abd pain; tarry stools progressively worse Hospital Course Hospital Course 32 year old female with no significant past medical history came in with chief complaint of Generalized abdominal pain, dry heaves, no vomiting, along with constipation with alternating diarrhea, with, predominantly a lot of mucus in the stool, as well as recently has also noted some blood in stool ,going on for the last 10 days, she has history of similar Recurrent abdominal pain going on for the last few years, this episode is significantly worse than the prior ones. She was admitted for the management of abdominal pain, likely secondary to jejunitis as well as gastritis, possibly also secondary to adhesions due to prior pelvic surgery.Initial thoughts were to rule out IBD, peptic ulcer disease.Patient underwent EGD and colonoscopy:EGD was unremarkable:Limited colonoscopy due to tortuous sigmoid colon, perhaps tethered by intraabdominal adhesions. Mucosa visualized during sigmoidoscopy grossly normal, biopsies pending. She was kept on, Metro and Cipro during the hospital stay, and was also kept on IV steroids,, trial dose, for possible IBD flare, though clinical suspicion was very less, was kept on Protonix, Carafate antiemetics, Stool studies were negative,RYAN profile rheumatology: Negative except for pending anti double-stranded DNA IgG. Rheumatoid factor: 10 , Anti-CCP:? negative,Stool H. pylori: Pending.Even at the time of discharge patient cont inued to have similar complaint no significant improvement, for now she has been discharged on, antiemetics, additional 7-day course of oral antibiotics, pain medications, Protonix Carafate. If she continued to have worsening symptoms, she will need to follow GI as outpatient. She was discharged in stable condition to home. Physical Exam Const: COMMON NORMALS: patient oriented x3 Resp: COMMON NORMALS: clear to auscultation bilaterally AUSCULTATION: clear to auscultation bilaterally Cardio: COMMON NORMALS: regular rate, regular rhythm, S1 normal heart sound present, S2 normal heart sound present, No gallops present (Cardio), No murmurs present (Cardio), No rub (Cardio) and Peripheral pulses 2+ throughout RATE: regular rate RHYTHM: regular rhythm HEART SOUNDS: S1 normal heart sound present and S2 normal heart sound present PERIPHERAL PULSES: Peripheral pulses 2+ throughout GI: COMMON NORMALS: Normal to inspection, nondistended, normoactive bowel sounds present, Soft to palpation, non-tender, No hepatosplenomegaly present and no masses AUSCULTATION: Yes normoactive bowel sounds PALPATION: Yes Soft to palpation and Yes No hepatosplenomegaly present RECTAL EXAM: deferred OTHER: Diffuse generalized abdominal tenderness present. Extremity: COMMON NORMALS: no clubbing, cyanosis or edema and no pedal edema Neuro: COMMON NORMALS: patient oriented x3 Discharge Data Studies Completed and Pending Completed Studies During Hospitalization Category Date Time Status CT abdomen pelvis w con* [id number] Stat Cat Scan 08/26/22 12:50 Completed Pending at discharge Category Date Time Status RYAN SCREEN [RYAN Profile Rheumatology] Routine Lab 08/27/22 00:57 Results Helicobacter Pylori AG Stool Routine Lab 08/29/22 22:00 Received Pathology: Surgical [PTH] Stat Pth 08/29/22 07:42 Ordered Radiology Impressions Abdomen/Pelvis CT 08/26/22 12:50 IMPRESSION: 1. Gastric and jejunal wall thickening, along with mild jejunal dilatation. 2. Scattered diverticula, without pericolonic inflammation. 3. Additional findings as described above. Laboratory Results WBC 7.9 10^3/uL (4.0-10.0) 08/29/22 04:15 RBC 4.28 10^6/uL (4.1-5.3) 08/29/22 04:15 Hgb 11.1 g/dL (11.5-15.3) L 08/29/22 04:15 Hct 37.6 % (37.0-47.0) 08/29/22 04:15 MCV 87.9 fl (81-99) 08/29/22 04:15 MCH 25.9 pg (28.0-34.0) L 08/29/22 04:15 MCHC 29.5 g/dL (30.0-36.0) L 08/29/22 04:15 RDW 14.3 % (12.1-15.1) 08/29/22 04:15 Plt Count 417 10^3/cmm (130-400) H 08/29/22 04:15 MPV 9.8 fL (7.4-10.4) 08/29/22 04:15 Neut % (Auto) 54.9 % 08/29/22 04:15 Lymph % (Auto) 38.1 % 08/29/22 04:15 Emmet % (Auto) 6.4 % 08/29/22 04:15 Eos % (Auto) 0.0 % 08/29/22 04:15 Baso % (Auto) 0.3 % 08/29/22 04:15 Neut # (Auto) 4.36 10^3/uL (1.8-7.7) 08/29/22 04:15 Lymph # (Auto) 3.0 10^3/uL (0.8-4.8) 08/29/22 04:15 Emmet # (Auto) 0.5 10^3/uL (0.2-0.9) 08/29/22 04:15 Eos # (Auto) 0.0 10^3/uL (0.0-0.8) 08/29/22 04:15 Baso # (Auto) 0.0 10^3/uL (0.0-0.1) 08/29/22 04:15 Nucleated RBC % (auto) 0 % 08/29/22 04:15 Nucleated RBCs # 0.0 /100WBC 08/29/22 04:15 ESR Cancelled 08/27/22 00:57 Sodium 139 mmol/L (136-145) 08/29/22 04:15 Potassium 3.9 mmol/L (3.5-5.1) 08/29/22 04:15 Chloride 106 mmol/L (98-107) 08/29/22 04:15 Carbon Dioxide 15 mmol/L (22-29) L 08/29/22 04:15 Anion Gap 21.9 (5-19) H 08/29/22 04:15 BUN 5 mg/dL (6-20) L 08/29/22 04:15 Creatinine 0.4 mg/dL (0.5-0.9) L 08/29/22 04:15 GFR Calculation 187.4 mL/min (90-130) H 08/29/22 04:15 Glucose 70 mg/dL (65-115) 08/29/22 04:15 Calculated Osmolality 284 mOsm/kg (285-295) L 08/29/22 04:15 Lactic Acid 1.2 mmol/L (0.5-2.2) 08/26/22 12:05 Calcium 8.8 mg/dL (8.5-10.5) 08/29/22 04:15 Phosphorus 3.8 mg/dL (2.5-4.5) 08/27/22 00:57 Magnesium 1.9 mg/dL (1.7-2.3) 08/27/22 00:57 Total Bilirubin 0.2 mg/dL (0.15-1.2) 08/29/22 04:15 AST 9 U/L (0-32) 08/29/22 04:15 ALT 11 U/L (0-33) 08/29/22 04:15 Alkaline Phosphatase 60 U/L (35-105) 08/29/22 04:15 C-Reactive Protein 8.4 mg/L (0.0-4.9) H 08/27/22 00:57 Total Protein 6.4 g/dL (6.6-8.7) L 08/29/22 04:15 Albumin 3.8 g/dL (3.5-5.2) 08/29/22 04:15 Globulin 2.6 g/dL (1.3-4.6) 08/29/22 04:15 Lipase 11 U/L (13-60) L 08/26/22 12:05 HCG, Qual Negative (Negative) 08/26/22 12:05 Urine Color Elizabeth (Yellow) 08/26/22 12:20 Urine Appearance Clear (CLEAR) 08/26/22 12:20 Urine pH 6 (5-7) 08/26/22 12:20 Ur Specific [place] 1.020 (1.005-1.030) 08/26/22 12:20 Urine Protein Neg (Negative) 08/26/22 12:20 Urine Glucose (UA) Norm (Normal) 08/26/22 12:20 Urine Ketones Negative (Negative) 08/26/22 12:20 Urine Blood Neg (Negative) 08/26/22 12:20 Urine Nitrate Negative (Negative) 08/26/22 12:20 Urine Bilirubin Neg (Negative) 08/26/22 12:20 Urine Urobilinogen Norm mg/dL (Negative) 08/26/22 12:20 Ur Leukocyte Esterase Negative (Negative) 08/26/22 12:20 Rheumatoid Factor 10.0 IU/mL (0-14) 08/27/22 00:57 Cycl Citrul Peptide IgG <16 UNITS 08/27/22 00:57 RYAN Screen Cancelled 08/26/22 12:05 RYAN Titer Cancelled 08/26/22 12:05 RYAN Titer 2 Cancelled 08/26/22 12:05 RYAN Titer 3 Cancelled 08/26/22 12:05 RYAN Pattern Cancelled 08/26/22 12:05 RYAN Pattern 2 Cancelled 08/26/22 12:05 RYAN Pattern 3 Cancelled 08/26/22 12:05 NEGRITA-1 Antibody <1.0 neg AI (<1.0 NEG) 08/27/22 00:57 SS-A Antibody <1.0 neg AI (<1.0 NEG) 08/27/22 00:57 SS-B Antibody <1.0 neg AI (<1.0 NEG) 08/27/22 00:57 Sm (Kaur) Antibody <1.0 neg AI (<1.0 NEG) 08/27/22 00:57 BLACK LEATHER BUFFER Antibody <1.0 neg AI (<1.0 NEG) 08/27/22 00:57 Scl-70 Antibody <1.0 neg AI (<1.0 NEG) 08/27/22 00:57 Anti-ds DNA IgG Ab Cancelled 08/26/22 12:05 Centromere B Antibody <1.0 neg AI (<1.0 NEG) 08/27/22 00:57 Mitochon/Sm Musc Ab Titr Cancelled 08/26/22 12:05 Thyroid Peroxidase Ab <1 IU/mL (<9) 08/27/22 00:57 Complement C3c 144 mg/dL (83-193) 08/27/22 00:57 Complement C4c 24 mg/dL (15-57) 08/27/22 00:57 CH50 Classical Pathway 56 U/mL (31-60) 08/27/22 00:57 Mitochondrial DNA Scrn Cancelled 08/26/22 12:05 Vitals Last Vital Signs Temp 98.1 F 08/30/22 07:31 Pulse 75 08/30/22 07:31 Resp 16 08/30/22 09:58 BP 114/72 08/30/22 07:31 Pulse Ox 98 08/30/22 07:31 O2 Del Method 08/29/22 16:00 O2 Flow Rate 3 08/29/22 07:33 Discharge Plan Discharge Patient Disposition: Home Condition: Stable Prescriptions: New Protonix 40 mg tablet,delayed release (DR/EC) 40 mg PO BID 30 Days Qty: 60 2RF Carafate 100 mg/mL suspension 1 g PO BID Qty: 1000 0RF Reglan 10 mg tablet 10 mg PO Q6H PRN (Reason: nausea and vomiting) Qty: 20 0RF metronidazole 500 mg tablet 500 mg PO BID 7 Days Qty: 14 0RF ciprofloxacin HCl 500 mg tablet 500 mg PO BID Qty: 14 0RF Continued triamcinolone acetonide [Nasacort] 55 mcg aerosol,spray 2 spray intranasal DAILY Rx Instructions: administer into each nostril loratadine [Claritin] 10 mg Tablet 10 mg PO DAILY acetaminophen 500 mg Tablet 1,000 mg PO Q6H PRN (Reason: Pain) 15 Days Qty: 30 0RF hydrocodone-acetaminophen 5-325 mg tablet 1 tab PO Q8H PRN (Reason: Pain) 7 Days Qty: 10 0RF Changed ondansetron 8 mg tablet,disintegrating 8 mg PO Q8H PRN (Reason: Nausea And Vomiting) 30 Days Qty: 40 0RF Discontinued Dayquil Caps 2 cap PO .ONCE TODAY Discharge Orders: Discharge Order (Routine); Ordered 08/30/22 Ordered By: Rios Ruffin Referrals: Becky Guillen MD [Physician] - 09/10/22 2:00 pm Patient Instructions: Ciprofloxacin (By mouth), Metoclopramide (By mouth), Sucralfate (By mouth), Metronidazole (By mouth), Pantoprazole (By mouth), GI Discharge Instructions, Opioid Safety Discharge Attestations Time Spent in Discharge Care*: greater than 30 min Quality Metrics Clinical Quality Measures [ No reported AMI, CVA or VTE this stay] Coding Level of Care Code Acute Chg FW DC note Exam Detailed Diagnoses Abdominal pain R10.9 Jejunal inflammation K52.9 Gastric wall thickening K31.89
--- NOTE | 2022-08-30 12:10 | PC.NURSE ---
Discharge Note Patient discharged to home via private vehicle accompanied by . Discharge instructions reviewed with patient and/or call center representative. Mobile pharmacy medications and/or prescriptions provided. Belongings/home medications returned.
[2022-08-30 12:11] VITALS: RESP 16
[2022-08-31 09:59] LABS: ANA PATTERN Nuclear, Homogeneous; ANA SCREEN, IFA POSITIVE (NEGATIVE); ANA TITER 1:40 titer
[2022-09-01 11:44] LABS: DNA AB (DS) CRITHIDIA,IFA NEGATIVE (NEGATIVE)
== END 2022-08-30 12:26 | disposition home or self-care (01) | DRG 392 ==
LOC: ER 16:43 → MEDSURG 19:44
PROVIDERS: Surgery; Admitting Provider Internal Medicine; Emergency Provider Physician Assistant; Visit Provider Internal Medicine
PROC: 0DJ08ZZ Inspection of Upper Intestinal Tract, Via Natural or Artificial Opening Endoscopic (ICD-10-PCS; CPT 43235; principal; 2022-08-29 07:00)
PROC: 0DJD8ZZ Inspection of Lower Intestinal Tract, Via Natural or Artificial Opening Endoscopic (ICD-10-PCS; CPT 45330; 2022-08-29 07:00)
DX: K52.9 Noninfective gastroenteritis and colitis, unspecified (principal); K29.70 Gastritis, unspecified, without bleeding; Z79.891 Long term (current) use of opiate analgesic; Z88.2 Allergy status to sulfonamides; F41.9 Anxiety disorder, unspecified; F32.A Depression, unspecified; E87.6 Hypokalemia
CPT/HCPCS: 12345; 36415; 74177; 80053; 81003; 83605; 83690; 83735; 84100; 84703; 85025; 86038; 86140; 86160; 86162; 86200; 86235; 86255; 86376; 86431; 87338; 87493; 87506; 88305; 96365; 96367; 96372; 96375; 96376; 99285; C9113; J0744; J1170; J1650; J1980; J2270; J2405; J2704; J2765; J2920; J3480; J3490; J7030; Q9967

== ENCOUNTER 2022-09-25 17:00 | Emergency (ER) | payer BC, MEDICAID, SELFPAY ==
[2022-09-25 17:38] VITALS: BP 119/74; PULSE 95; RESP 18; TEMP 36.7; O2SAT 97; BMI 27.6
[2022-09-25 19:37] LABS: Urine Appearance Clear (CLEAR); Urine Color Yellow (Yellow); pH Urine 5 (5-7)
[2022-09-25 19:38] LABS: Add Urine Microscopic? YES; Bilirubin Urine Neg (Negative); Blood Urine 2+ (Negative); Glucose Urine UA Norm (Normal); Ketones Urine 2+ (Negative); Leukocyte Esterase Urine Trace (Negative); Nitrate Urine Negative (Negative); Protein Urine Neg (Negative); Specific Gravity, Urine 1.015 (1.005-1.030); Urobilinogen Urine Neg (Negative)
[2022-09-25 19:39] LABS: WBC Urine 0-4 /hpf (0-5)
[2022-09-25 19:40] LABS: Add Urine Culture? No; Bacteria Urine TRACE /hpf; Mucus Urine TRACE /hpf
[2022-09-25] MEDS: HYDROcodone-acetaminophen 5-325 mg Tablet 1 TAB PO (21:01)
--- NOTE | 2022-09-25 21:10 | W.ED.SKABFB ---
HPI - Skin/Abscess/Foreign Bdy General: Chief complaint: Skin/Abscess/Foreign Body Stated complaint: abcess? Hernia? Time Seen by Provider: 09/25/22 20:18 Source: patient Mode of arrival: ambulatory Limitations: no limitations History of Present Illness: 32-year-old female states that she has had an abscess to her left buttocks for the past 2 or 3 days she is seen at [facility] sent here for incise and drainage states she had some drainage from the spot it does cause her pain she rates her pain a 6 out of 10 denies any fever denies any vomiting denies any worsening improving factors. Associated symptoms: Deny chills, fever(s), nausea or vomiting Review of Systems Const: Denies: fever(s), chills, body aches or change in appetite Eyes: Denies: blurry vision or eye discomfort ENMT: Denies: throat pain or dental pain Card: Denies: chest pain Resp: Denies: dyspnea GI: Denies: abdominal pain, nausea, vomiting or diarrhea : Denies: dysuria Musc: Denies: neck pain or back pain Skin/Breast: Denies: rash Neuro: Denies: headache(s) Psych: Denies: depression [place]/Lymph: Denies: easy bruising All/Imm: Denies: urticaria PFSH ED PFSH: Medical History Abdominal pain Abscess Anxiety Depression Gastric wall thickening Irritable bowel disease Jejunal inflammation Surgical History H/O: hysterectomy Hx of section 09/20/2014: Performed in [facility]. Operative report---> primary low transverse delivery with double layer closure and no extensions. Hx of cholecystectomy Hx of colonoscopy 2022 Hx of esophagogastroduodenoscopy 2022 Hx of laparoscopy Done on 09/10/[address] Cook at [facility] [place] for pelvic pain--laparoscopy with lysis of adheions and Nexplanon removal. At time of surgery a single area of omental adhesions onto the bladder was noted which was taken down. No sign of endometriosis.. Hx of tonsillectomy Family History Father Hypertension Family/Other Ovarian cancer maternal great grandmother, maternal grandmother and paternal grandmother. She states that all of these women have had hysterectomies however she is not sure about the diagnosis of ovarian cancer... Diabetes Paternal Aunt Thyroid disease Paternal aunt Mother Hypertension Cervical cancer dx --unknown age Grandmother Stroke Paternal Colon cancer Paternal--dx age unknown Ovarian cancer Maternal--dx age unknown Grandfather Stroke Paternal Denies family history of Heart disease Hyperlipidemia Breast cancer Uterine cancer Social History Smoking and tobacco status: never smoked Alcohol intake: never Female Reproductive History: Spontaneous abortions: No Physical Exam Const: COMMON NORMALS: no acute distress, patient oriented x3 and healthy appearing HENMT: COMMON NORMALS: normocephalic and atraumatic HEAD & SCALP: normocephalic and atraumatic Eye: COMMON NORMALS: Equal, round and reactive pupils present and EOMs intact bilaterally PUPIL: Yes Equal, round and reactive pupils present Neck/C-Spine: COMMON NORMALS: full ROM and supple Chest: COMMONS NORMALS: normal inspection of the chest and normal palpation of entire chest wall Resp: COMMON NORMALS: normal respiratory effort, No retractions, No use of accessory muscles and clear to auscultation bilaterally AUSCULTATION: clear to auscultation bilaterally Cardio: COMMON NORMALS: regular rate, regular rhythm and No murmurs present (Cardio) RATE: regular rate RHYTHM: regular rhythm GI: COMMON NORMALS: Normal to inspection, nondistended, normoactive bowel sounds present, Soft to palpation, non-tender and no masses PALPATION: Yes Soft to palpation Extremity: COMMON NORMALS: normal to inspection and full ROM Neuro: COMMON NORMALS: patient oriented x3, moves all extremities and no focal motor deficits Psych: COMMON NORMALS: mental status grossly normal, Normal thought process present and cooperative THOUGHT PROCESS: Normal thought process present Skin: NARRATIVE SKIN EXAM: 3cm abscess to left buttocks Procedures Abscess I/D Site: other (left buttocks) Side (if applicable): left Local Anesthetic: lidocaine 1% Amount of anesthesia used (mL): 8 Technique: incised with #11 blade Irrigation: No Packing used?: iodoform Course Vital Signs: Vital signs: Vital Signs Temperature 98.1 F 09/25/22 17:38 Pulse Rate 95 09/25/22 17:38 Respiratory Rate 18 09/25/22 17:38 Blood Pressure 119/74 09/25/22 17:38 Pulse Oximetry 97 09/25/22 17:38 Oxygen Delivery Me thod 09/25/22 17:38 MDM - Skin/Abscess/Foreign Bdy Medicial Decision Making Patient presents for an abscess to her left buttocks that was incised and drained here we will place her on pain meds along with antibiotics she is stable for discharge did place a week she is to remove it in 2 days or return she understands agrees to plan. Lab Data Laboratory Results Urine Color Yellow (Yellow) 09/25/22 17:47 Urine Appearance Clear (CLEAR) 09/25/22 17:47 Urine pH 5 (5-7) 09/25/22 17:47 Ur Specific [place] 1.015 (1.005-1.030) 09/25/22 17:47 Urine Protein Neg (Negative) 09/25/22 17:47 Urine Glucose (UA) Norm (Normal) 09/25/22 17:47 Urine Ketones 2+ (Negative) H 09/25/22 17:47 Urine Blood 2+ (Negative) H 09/25/22 17:47 Urine Nitrate Negative (Negative) 09/25/22 17:47 Urine Bilirubin Neg (Negative) 09/25/22 17:47 Urine Urobilinogen Neg mg/dL (Negative) 09/25/22 17:47 Ur Leukocyte Esterase Trace (Negative) H 09/25/22 17:47 Urine RBC 5-10 /hpf (0-2) H 09/25/22 17:47 Urine WBC 0-4 /hpf (0-5) H 09/25/22 17:47 Ur Squamous Epith Cells 5-10 /hpf (0-5) H 09/25/22 17:47 Amorphous Sediment Not Reportable 09/25/22 17:47 Urine Bacteria Trace /hpf (NONE) 09/25/22 17:47 Urine Mucus Trace /hpf 09/25/22 17:47 Discharge Plan Discharge Patient Disposition: Home Clinical Impression: Abscess of skin or subcutaneous tissue Condition: Stable Prescriptions: New hydrocodone-acetaminophen 5-325 mg tablet 1 tab PO Q6H PRN (Reason: pain) Qty: 14 0RF clindamycin HCl 300 mg capsule 300 mg PO Q8H 7 Days Qty: 21 0RF No Action sucralfate [Carafate] 100 mg/mL suspension 1 g PO BID PRN dicyclomine 20 mg tablet 20 mg PO QID Qty: 120 11RF triamcinolone acetonide [Nasacort] 55 mcg aerosol,spray 2 spray intranasal DAILY Rx Instructions: administer into each nostril loratadine [Claritin] 10 mg Tablet 10 mg PO DAILY acetaminophen 500 mg Tablet 1,000 mg PO Q6H PRN (Reason: Pain) 15 Days Qty: 30 0RF ondansetron 8 mg tablet,disintegrating 8 mg PO Q8H PRN (Reason: Nausea And Vomiting) 30 Days Qty: 40 0RF Protonix 40 mg tablet,delayed release (DR/EC) 40 mg PO BID 30 Days Qty: 60 2RF Reglan 10 mg tablet 10 mg PO Q6H PRN (Reason: nausea and vomiting) Qty: 20 0RF hydrocodone-acetaminophen 5-325 mg tablet 1 tab PO Q8H PRN (Reason: Pain) 7 Days Qty: 10 0RF Discharge Orders: Discharge ED (Routine); Ordered 09/25/22 Ordered By: Andrea Tellez Referrals: Becky Guillen MD [Primary Care Provider] - 1-3 days Discharge Diet: Advance as tolerated Discharge Activity: Resume usual activity Patient Instructions: Abscess (ED) Coding Level of Care Code ED Engineer Of System Development for Kamaljit Buckley
== END 2022-09-25 21:38 | disposition home or self-care (01) ==
PROVIDERS: Emergency Provider Emergency Medicine; PCP Family Medicine
DX: L02.31 Cutaneous abscess of buttock (principal)
CPT/HCPCS: 10060; 81001; 99283

== ENCOUNTER 2022-11-18 07:17 | Day surgery (SDC) | payer BC, MEDICAID, SELFPAY ==
[2022-11-17 10:04] VITALS: BMI 27.2
[2022-11-18 07:37] VITALS: BP 112/66; PULSE 54; RESP 18; TEMP 36.7; O2SAT 97
[2022-11-18] MEDS: sodium chloride 0.9% 1,000 ML 30 ML IV (07:47)
--- NOTE | 2022-11-18 09:35 | P.ANESASSM_ITS ---
Pre-Anesthetic Assessment Height/Weight: Height 1.5 m Weight 61.235 kg Temp Pulse Resp BP Pulse Ox O2 Del Method 98.1 F 54 L 18 112/66 97 11/18/22 07:37 11/18/22 07:37 11/18/22 07:37 11/18/22 07:37 11/18/22 07:37 11/18/22 07:37 Preop Diagnosis: abdominal pain Operation Date: 11/18/22 09:00 Proposed Procedures p 23273 EGD 18024 Colon R10.9,K62.5,R11.0(Not Applicable) - DO susan Albert Colonoscopy(Not Applicable) - Desmond Wagner DO Familial anesthetic complications: None Was Beta Erin taken within 24 hours: N/A Was Clonidine taken within 24 hours: N/A Last intake: Intake Last Liquid Date 11/17/22 Last Liquid Time 22:30 Last Solid Date 11/16/22 Last Solid Time 17:00 Social No alcohol and No tobacco daily MJ use Exam alert, oriented x 3 and clear to auscultation bilaterally Airway Submandibular: within normal limits Cervical ROM: within normal limits Mallampati: Class I Dentition: full History/ROS No significant history except as noted Pulmonary None reported CV/HEM None reported None reported Hepatic None reported GI Gastroesophageal Reflux Disease nausea Metabolic None reported Musc/skel Lower Back Pain Neuropsych Anxiety and Depression Anesthetic Plan ASA status: 2 Anesthesia: Anesthesia Evaluation and MAC Risk of > 500 ml blood loss (7ml/kg in children): No Medications/Allergies Home Medications Medication Instructions Recorded Confirmed Last Taken Type loratadine 10 mg tablet (Claritin) 10 mg PO DAILY 11/15/20 11/18/22 2 Weeks Ago History ~08/12/22 triamcinolone acetonide 55 mcg 2 spray intranasal DAILY 08/06/22 11/18/22 2 Weeks Ago History nasal spray aerosol (Nasacort) ~08/12/22 acetaminophen 500 mg tablet 1,000 mg PO Q6H PRN Pain 15 days 08/30/22 11/18/22 Unknown Rx #30 tabs pantoprazole 40 mg tablet,delayed 40 mg PO BID 30 days #60 tabs 08/30/2211/18/22 Rx release (Protonix) dicyclomine 20 mg tablet 20 mg PO QID #120 tabs 0111/18/22 11/18/22 Rx scopolamine base 1 mg over 3 days 1 patch transdermal Q3D PRN nausea 10/21/22 11/18/22 11/17/22 Rx transdermal patch and vomiting #4 ea duloxetine 20 mg capsule,delayed 20 mg PO DAILY 30 days #30 caps 11/11/22 11/18/22 11/18/22 Rx release (Cymbalta) ondansetron 8 mg disintegrating 8 mg PO Q8H PRN Nausea And 11/11/22 11/18/22 11/18/22 Rx tablet Vomiting 30 days #40 tabs Allergies Allergy/AdvReac Type Severity Reaction Status Date / Time azithromycin AdvReac vomiting Verified 11/18/22 07:36 cefprozil [From Cefzil] AdvReac rash and Verified 11/18/22 07:36 hives Sulfa (Sulfonamide AdvReac unknown Verified 11/18/22 07:36 Antibiotics) Current Medications Generic Name Dose Route Start Last Admin Trade Name Freq PRN Reason Stop Dose Admin Sodium Chloride 1,000 mls @ 30 mls/hr 11/18/22 07:30 11/18/22 07:47 Sodium Chloride 0.9% IV 11/19/22 07:29 30 mls/hr .Q24H ROBBI Administration PFSH Anesthesia Medical History Abdominal pain Abscess Anxiety Depression Gastric wall thickening Irritable bowel disease Jejunal inflammation Surgical History H/O: hysterectomy Hx of section 09/20/2014: Performed in [facility]. Operative report---> primary low transverse delivery with double layer closure and no extensions. Hx of cholecystectomy Hx of colonoscopy 2022 Hx of esophagogastroduodenoscopy 2022 Hx of laparoscopy Done on 09/10/[address] Cook at [facility] [place] for pelvic pain--laparoscopy with lysis of adheions and Nexplanon removal. At time of surgery a single area of omental adhesions onto the bladder was noted which was taken down. No sign of endometriosis.. Hx of tonsillectomy Family History Father Hypertension Family/Other Ovarian cancer maternal great grandmother, maternal grandmother and paternal grandmother. She states that all of these women have had hysterectomies however she is not sure about the diagnosis of ovarian cancer... Diabetes Paternal Aunt Thyroid disease Paternal aunt Mother Hypertension Cervical cancer dx --unknown age Grandmother Stroke Paternal Colon cancer Paternal--dx age unknown Ovarian cancer Maternal--dx age unknown Grandfather Stroke Paternal Denies family history of Heart disease Hyperlipidemia Breast cancer Uterine cancer Social History (Reviewed 11/11/22 @ 07:08 by Ibis Keyes [facility] [address]) Smoking and tobacco status: never smoked Alcohol intake: never Female Reproductive History Spontaneous abortions: No Data Anesthesia Cardiac Studies: No Data to Display
--- NOTE | 2022-11-18 09:48 | W.PM.OPSUD ---
Surgery/Procedure H&P Update DATE OF PROCEDURE: November 18, 2022 DATE H&P PERFORMED: 10/21/22 H&P UPDATE INFORMATION: I have reviewed H&P completed within last 30 days, I have examined patient prior to procedure and No changes to prior documentation PREOP DIAGNOSIS: abdominal pain PLANNED PROCEDURE: Operation Date: 11/18/22 09:00 Proposed Procedures p 09458 EGD 69025 Colon R10.9,K62.5,R11.0(Not Applicable) - DO susan Albert Colonoscopy(Not Applicable) - Desmond Wagner DO
[2022-11-18 10:18] VITALS: BP 137/75; PULSE 59; RESP 16; TEMP 36.1; O2SAT 100
[2022-11-18 10:23] VITALS: BP 124/89; PULSE 51; RESP 18; O2SAT 100
[2022-11-18 10:33] VITALS: BP 138/92; PULSE 66; RESP 18; O2SAT 100
--- NOTE | 2022-11-18 16:39 | ANE.PACU2 ---
Inpatient post-anesthesia follow up: Airway intact: Yes Vital signs: Temperature 97.0 F Pulse Rate 66 Respiratory Rate 18 Blood Pressure 138/92 Pulse Oximetry 100 Oxygen Delivery Me thod Room Air Oxygen Flow Rate 2 Fraction of Inspir ed Oxygen Hydration adequate: Yes Nausea and vomiting: No Pain level: 2 Mental status: Baseline
== END 2022-11-18 11:05 | disposition home or self-care (01) ==
PROVIDERS: PCP Family Medicine; Visit Provider Surgery
PROC: 0DJ08ZZ Inspection of Upper Intestinal Tract, Via Natural or Artificial Opening Endoscopic (ICD-10-PCS; CPT 43235; principal; 2022-11-18 09:00)
PROC: 0DJD8ZZ Inspection of Lower Intestinal Tract, Via Natural or Artificial Opening Endoscopic (ICD-10-PCS; CPT 45378; 2022-11-18 09:00)
DX: K29.50 Unspecified chronic gastritis without bleeding (principal); R11.0 Nausea; Z80.0 Family history of malignant neoplasm of digestive organs; F41.9 Anxiety disorder, unspecified; F32.A Depression, unspecified; K21.9 Gastro-esophageal reflux disease without esophagitis
CPT/HCPCS: 43239; 45380; 82274; 83630; 87493; 87506; 88305; 88342; J2250; J2704; J3490; J7030